=== PATIENT | male | born 1965 | race Caucasian/White ===

== ENCOUNTER 2023-12-29 12:23 | Emergency (ER) | payer OTHER, SELFPAY ==
[2023-12-29 12:30] VITALS: BP 172/97; PULSE 65; TEMP 36.7; O2SAT 97; BMI 30.7
--- NOTE | 2023-12-29 12:43 | PC.NURSE ---
Red raised rash to right back and upper abdomen, no drainage or crust noted.
--- NOTE | 2023-12-29 12:52 | ED.SKABFB1 ---
HPI - Skin/Abscess/Foreign Bdy General Chief complaint: Skin/Abscess/Foreign Body Stated complaint: BACK PAIN/RASH Time Seen by Provider: 12/29/23 12:52 History of Present Illness HPI narrative: This very pleasant man here complaining of skin rash. He noticed about 3 days ago. Initially he thought he had wood sliver since he was doing on some outdoor work. He is not a diabetic. He is not the shingles vaccine. He notices that normally involves one half of his body. No other complaints today. Related Data Allergies Allergy/AdvReac Type Severity Reaction Status Date / Time Penicillins Allergy Severe Verified 12/29/23 12:30 Exam Narrative Exam Narrative: Awake alert moderately uncomfortable. Examination of his lower back shows a bandlike distribution classic of the shingles/zoster rash starting in the paravertebral area on the right side of midline extending over to his abdominal wall. There is no secondary infection. There is no evidence of abdominal wall cellulitis. He has no other systemic complaints. Has no respiratory distress. Constitutional Vital Signs, click to edit/add: Last Vital Signs Temp 98.1 F 12/29/23 12:30 Pulse 65 12/29/23 12:30 Resp 16 12/29/23 12:30 BP 172/97 H 12/29/23 12:30 Pulse Ox 97 12/29/23 12:30 O2 Del Method Room Air 12/29/23 12:30 Course Vital Signs Vital signs: Vital Signs Temperature 98.1 F 12/29/23 12:30 Pulse Rate 65 12/29/23 12:30 Respiratory Rate 16 12/29/23 12:30 Blood Pressure 172/97 H 12/29/23 12:30 Pulse Oximetry 97 12/29/23 12:30 Oxygen Delivery Method Room Air 12/29/23 12:30 Temperature 98.1 F 12/29/23 12:30 Pulse Rate 65 12/29/23 12:30 Respiratory Rate 16 12/29/23 12:30 Blood Pressure 172/97 H 12/29/23 12:30 Pulse Oximetry 97 12/29/23 12:30 Oxygen Delivery Method Room Air 12/29/23 12:30 Discharge Plan Discharge Stand Alone Forms: Portal Instructions Chief Complaint: Skin/Abscess/Foreign Body Clinical Impression: Shingles Patient Disposition: Home, Self-Care Time of Disposition Decision: 12:54 Print Language: Honduran Additional Instructions: Alliance as needed for pain/prednisone Referrals: MARIA E HAMMONDS [Primary Care Provider] - 1 week
== END 2023-12-29 13:10 | disposition home or self-care (01) ==
PROVIDERS: Emergency Provider Emergency Medicine Emergency Medical Services; PCP Nurse Practitioner
DX: B02.9 Zoster without complications (principal)
CPT/HCPCS: 99283

== ENCOUNTER 2024-02-13 14:00 | Observation (INO) | payer OTHER, SELFPAY ==
[2024-02-13] VITALS (29 sets, daily range): BP systolic 148–230; BP diastolic 87–125; PULSE 52–118; TEMP 36.7–37.3; O2SAT 88–99; BMI 28.3; BMI 27.9
--- NOTE | 2024-02-13 14:21 | CT_ITS ---
[address] [address] Patient Name: QING CLARK MRN: [id number] date: 1965 Sex: M Assigned Patient Location: ER Current Patient Location: Accession/Order Number: [id number] Exam Date: 02/13/2024 14:50 Report Date: 02/13/2024 15:52 At the request of: CARLYN SAHA Procedure: CT abdomen pelvis w con EXAMINATION: CT abdomen pelvis w con, CT thoracic spine wo con, CT lumbar spine wo con, CT cervical spine wo con, CT chest w con HISTORY: fall COMPARISON: No relevant comparison available. TECHNIQUE: Axial, Coronal, and Sagittal CT images were obtained without and with IV contrast. Dose reduction techniques were achieved by using automated exposure control and/or adjustment of mA and/or kV according to patient size and/or use of iterative reconstruction technique. FINDINGS: LUNGS: Small amount of soft tissue in the distal trachea and right mainstem bronchus, retained mucus is favored. No bronchiectasis or peribronchial thickening. No pneumothorax. Minimal dependent atelectasis PLEURA: No mass or effusion. VASCULATURE: No visible pulmonary arterial thrombus or attenuation. TRACY: No mass or adenopathy. MEDIASTINUM: No mass or adenopathy. CARDIAC: No enlargement, pericardial thickening, or pericardial effusion. Coronary arteries: Minimal calcifications CHEST WALL: No mass or axillary adenopathy. LIVER: No enlargement, atrophy, abnormal density, or significant focal lesion. BILIARY: No dilatation or calcification. PANCREAS: No lesion, fluid collection, ductal dilatation, or atrophy. SPLEEN: No enlargement or focal lesion. ADRENALS: No mass or enlargement. KIDNEYS: No mass, obstruction, or calcification. BOWEL/MESENTERY: Colonic diverticulosis without evidence of acute diverticulitis. Nonobstructive bowel gas pattern. Normal appendix. AORTA/VASCULAR: No aortic aneurysm. Moderate ossific atherosclerosis RETROPERITONEUM: No mass or adenopathy. ABDOMINAL WALL: 3 cm umbilical hernia containing fat without strangulation BONES: No bony lesion or fracture. Anterior wedge compression fractures T11-T12 L1-L2 and L3, grossly stable from previous exam in 2018. Slight progression of degenerative spondylosis. Cervical/thoracic/lumbar spine: FINDINGS: PARASPINAL AREA: Normal with no visible mass. DISCS: Multilevel disc space narrowing with endplate sclerosis. BONES: Normal alignment of the cervical thoracic and lumbar vertebral bodies with no spondylolisthesis. There is anterior wedging of the T3-T4 T5 T7 T8 and T9, T11, T12, L1, L2, L3 and L4 vertebral bodies. OTHER: Negative. CT/CT abdomen pelvis w con IMPRESSION: No acute intrathoracic or intra-abdominal traumatic abnormality Wedge compression fractures of multiple thoracic and lumbar vertebral bodies. The T11-L3 compression fractures are stable from the prior 2018 exam. The thoracic vertebral bodies have no prior comparison Electronically authenticated by: CHRISTOPHER VALLE Date: 02/13/2024 15:52
--- NOTE | 2024-02-13 14:21 | CT_ITS ---
[address] [address] Patient Name: QING CLARK MRN: [id number] date: 1965 Sex: M Assigned Patient Location: ER Current Patient Location: Accession/Order Number: [id number] Exam Date: 02/13/2024 14:50 Report Date: 02/13/2024 15:52 At the request of: CARLYN SAHA Procedure: CT thoracic spine wo con EXAMINATION: CT abdomen pelvis w con, CT thoracic spine wo con, CT lumbar spine wo con, CT cervical spine wo con, CT chest w con HISTORY: fall COMPARISON: No relevant comparison available. TECHNIQUE: Axial, Coronal, and Sagittal CT images were obtained without and with IV contrast. Dose reduction techniques were achieved by using automated exposure control and/or adjustment of mA and/or kV according to patient size and/or use of iterative reconstruction technique. FINDINGS: LUNGS: Small amount of soft tissue in the distal trachea and right mainstem bronchus, retained mucus is favored. No bronchiectasis or peribronchial thickening. No pneumothorax. Minimal dependent atelectasis PLEURA: No mass or effusion. VASCULATURE: No visible pulmonary arterial thrombus or attenuation. TRACY: No mass or adenopathy. MEDIASTINUM: No mass or adenopathy. CARDIAC: No enlargement, pericardial thickening, or pericardial effusion. Coronary arteries: Minimal calcifications CHEST WALL: No mass or axillary adenopathy. LIVER: No enlargement, atrophy, abnormal density, or significant focal lesion. BILIARY: No dilatation or calcification. PANCREAS: No lesion, fluid collection, ductal dilatation, or atrophy. SPLEEN: No enlargement or focal lesion. ADRENALS: No mass or enlargement. KIDNEYS: No mass, obstruction, or calcification. BOWEL/MESENTERY: Colonic diverticulosis without evidence of acute diverticulitis. Nonobstructive bowel gas pattern. Normal appendix. AORTA/VASCULAR: No aortic aneurysm. Moderate ossific atherosclerosis RETROPERITONEUM: No mass or adenopathy. ABDOMINAL WALL: 3 cm umbilical hernia containing fat without strangulation BONES: No bony lesion or fracture. Anterior wedge compression fractures T11-T12 L1-L2 and L3, grossly stable from previous exam in 2018. Slight progression of degenerative spondylosis. Cervical/thoracic/lumbar spine: FINDINGS: PARASPINAL AREA: Normal with no visible mass. DISCS: Multilevel disc space narrowing with endplate sclerosis. BONES: Normal alignment of the cervical thoracic and lumbar vertebral bodies with no spondylolisthesis. There is anterior wedging of the T3-T4 T5 T7 T8 and T9, T11, T12, L1, L2, L3 and L4 vertebral bodies. OTHER: Negative. CT/CT thoracic spine wo con IMPRESSION: No acute intrathoracic or intra-abdominal traumatic abnormality Wedge compression fractures of multiple thoracic and lumbar vertebral bodies. The T11-L3 compression fractures are stable from the prior 2018 exam. The thoracic vertebral bodies have no prior comparison Electronically authenticated by: CHRISTOPHER VALLE Date: 02/13/2024 15:52
--- NOTE | 2024-02-13 14:21 | CT_ITS ---
The [address] [address] Patient Name: QING CLARK MRN: [id number] date: 1965 Sex: M Assigned Patient Location: ER Current Patient Location: ER Accession/Order Number: [id number] Exam Date: 02/13/2024 14:50 Report Date: 02/13/2024 15:29 At the request of: CARLYN SAHA Procedure: CT head/brain wo con EXAM: CT head/brain wo con HISTORY: Fall COMPARISON: None. TECHNIQUE: Axial noncontrast CT imaging of the head was performed with coronal and sagittal reformats. FINDINGS: Calvarium/skull base: No evidence of acute fracture or destructive lesion. Mastoids and middle ears demonstrate no substantial mucosal disease. Paranasal sinuses: No air fluid levels. Brain: No acute intracranial hemorrhage. No acute large vascular territory infarct. No mass lesion or mass effect. No hydrocephalus. CT/CT head/brain wo con IMPRESSION: No acute intracranial process. Electronically authenticated by: CASS TRIPP Date: 02/13/2024 15:29
--- NOTE | 2024-02-13 14:21 | CT_ITS ---
[address] [address] Patient Name: QING CLARK MRN: [id number] date: 1965 Sex: M Assigned Patient Location: ER Current Patient Location: Accession/Order Number: [id number] Exam Date: 02/13/2024 14:50 Report Date: 02/13/2024 15:52 At the request of: CARLYN SAHA Procedure: CT cervical spine wo con EXAMINATION: CT abdomen pelvis w con, CT thoracic spine wo con, CT lumbar spine wo con, CT cervical spine wo con, CT chest w con HISTORY: fall COMPARISON: No relevant comparison available. TECHNIQUE: Axial, Coronal, and Sagittal CT images were obtained without and with IV contrast. Dose reduction techniques were achieved by using automated exposure control and/or adjustment of mA and/or kV according to patient size and/or use of iterative reconstruction technique. FINDINGS: LUNGS: Small amount of soft tissue in the distal trachea and right mainstem bronchus, retained mucus is favored. No bronchiectasis or peribronchial thickening. No pneumothorax. Minimal dependent atelectasis PLEURA: No mass or effusion. VASCULATURE: No visible pulmonary arterial thrombus or attenuation. TRACY: No mass or adenopathy. MEDIASTINUM: No mass or adenopathy. CARDIAC: No enlargement, pericardial thickening, or pericardial effusion. Coronary arteries: Minimal calcifications CHEST WALL: No mass or axillary adenopathy. LIVER: No enlargement, atrophy, abnormal density, or significant focal lesion. BILIARY: No dilatation or calcification. PANCREAS: No lesion, fluid collection, ductal dilatation, or atrophy. SPLEEN: No enlargement or focal lesion. ADRENALS: No mass or enlargement. KIDNEYS: No mass, obstruction, or calcification. BOWEL/MESENTERY: Colonic diverticulosis without evidence of acute diverticulitis. Nonobstructive bowel gas pattern. Normal appendix. AORTA/VASCULAR: No aortic aneurysm. Moderate ossific atherosclerosis RETROPERITONEUM: No mass or adenopathy. ABDOMINAL WALL: 3 cm umbilical hernia containing fat without strangulation BONES: No bony lesion or fracture. Anterior wedge compression fractures T11-T12 L1-L2 and L3, grossly stable from previous exam in 2018. Slight progression of degenerative spondylosis. Cervical/thoracic/lumbar spine: FINDINGS: PARASPINAL AREA: Normal with no visible mass. DISCS: Multilevel disc space narrowing with endplate sclerosis. BONES: Normal alignment of the cervical thoracic and lumbar vertebral bodies with no spondylolisthesis. There is anterior wedging of the T3-T4 T5 T7 T8 and T9, T11, T12, L1, L2, L3 and L4 vertebral bodies. OTHER: Negative. CT/CT cervical spine wo con IMPRESSION: No acute intrathoracic or intra-abdominal traumatic abnormality Wedge compression fractures of multiple thoracic and lumbar vertebral bodies. The T11-L3 compression fractures are stable from the prior 2018 exam. The thoracic vertebral bodies have no prior comparison Electronically authenticated by: CHRISTOPHER VALLE Date: 02/13/2024 15:52
--- NOTE | 2024-02-13 14:21 | CT_ITS ---
[address] [address] Patient Name: QING CLARK MRN: [id number] date: 1965 Sex: M Assigned Patient Location: ER Current Patient Location: Accession/Order Number: [id number] Exam Date: 02/13/2024 14:50 Report Date: 02/13/2024 15:52 At the request of: CARLYN SAHA Procedure: CT lumbar spine wo con EXAMINATION: CT abdomen pelvis w con, CT thoracic spine wo con, CT lumbar spine wo con, CT cervical spine wo con, CT chest w con HISTORY: fall COMPARISON: No relevant comparison available. TECHNIQUE: Axial, Coronal, and Sagittal CT images were obtained without and with IV contrast. Dose reduction techniques were achieved by using automated exposure control and/or adjustment of mA and/or kV according to patient size and/or use of iterative reconstruction technique. FINDINGS: LUNGS: Small amount of soft tissue in the distal trachea and right mainstem bronchus, retained mucus is favored. No bronchiectasis or peribronchial thickening. No pneumothorax. Minimal dependent atelectasis PLEURA: No mass or effusion. VASCULATURE: No visible pulmonary arterial thrombus or attenuation. TRACY: No mass or adenopathy. MEDIASTINUM: No mass or adenopathy. CARDIAC: No enlargement, pericardial thickening, or pericardial effusion. Coronary arteries: Minimal calcifications CHEST WALL: No mass or axillary adenopathy. LIVER: No enlargement, atrophy, abnormal density, or significant focal lesion. BILIARY: No dilatation or calcification. PANCREAS: No lesion, fluid collection, ductal dilatation, or atrophy. SPLEEN: No enlargement or focal lesion. ADRENALS: No mass or enlargement. KIDNEYS: No mass, obstruction, or calcification. BOWEL/MESENTERY: Colonic diverticulosis without evidence of acute diverticulitis. Nonobstructive bowel gas pattern. Normal appendix. AORTA/VASCULAR: No aortic aneurysm. Moderate ossific atherosclerosis RETROPERITONEUM: No mass or adenopathy. ABDOMINAL WALL: 3 cm umbilical hernia containing fat without strangulation BONES: No bony lesion or fracture. Anterior wedge compression fractures T11-T12 L1-L2 and L3, grossly stable from previous exam in 2018. Slight progression of degenerative spondylosis. Cervical/thoracic/lumbar spine: FINDINGS: PARASPINAL AREA: Normal with no visible mass. DISCS: Multilevel disc space narrowing with endplate sclerosis. BONES: Normal alignment of the cervical thoracic and lumbar vertebral bodies with no spondylolisthesis. There is anterior wedging of the T3-T4 T5 T7 T8 and T9, T11, T12, L1, L2, L3 and L4 vertebral bodies. OTHER: Negative. CT/CT lumbar spine wo con IMPRESSION: No acute intrathoracic or intra-abdominal traumatic abnormality Wedge compression fractures of multiple thoracic and lumbar vertebral bodies. The T11-L3 compression fractures are stable from the prior 2018 exam. The thoracic vertebral bodies have no prior comparison Electronically authenticated by: CHRISTOPHER VALLE Date: 02/13/2024 15:52
--- NOTE | 2024-02-13 14:21 | CT_ITS ---
[address] [address] Patient Name: QING CLARK MRN: [id number] date: 1965 Sex: M Assigned Patient Location: ER Current Patient Location: Accession/Order Number: [id number] Exam Date: 02/13/2024 14:50 Report Date: 02/13/2024 15:52 At the request of: CARLYN SAHA Procedure: CT chest w con EXAMINATION: CT abdomen pelvis w con, CT thoracic spine wo con, CT lumbar spine wo con, CT cervical spine wo con, CT chest w con HISTORY: fall COMPARISON: No relevant comparison available. TECHNIQUE: Axial, Coronal, and Sagittal CT images were obtained without and with IV contrast. Dose reduction techniques were achieved by using automated exposure control and/or adjustment of mA and/or kV according to patient size and/or use of iterative reconstruction technique. FINDINGS: LUNGS: Small amount of soft tissue in the distal trachea and right mainstem bronchus, retained mucus is favored. No bronchiectasis or peribronchial thickening. No pneumothorax. Minimal dependent atelectasis PLEURA: No mass or effusion. VASCULATURE: No visible pulmonary arterial thrombus or attenuation. TRACY: No mass or adenopathy. MEDIASTINUM: No mass or adenopathy. CARDIAC: No enlargement, pericardial thickening, or pericardial effusion. Coronary arteries: Minimal calcifications CHEST WALL: No mass or axillary adenopathy. LIVER: No enlargement, atrophy, abnormal density, or significant focal lesion. BILIARY: No dilatation or calcification. PANCREAS: No lesion, fluid collection, ductal dilatation, or atrophy. SPLEEN: No enlargement or focal lesion. ADRENALS: No mass or enlargement. KIDNEYS: No mass, obstruction, or calcification. BOWEL/MESENTERY: Colonic diverticulosis without evidence of acute diverticulitis. Nonobstructive bowel gas pattern. Normal appendix. AORTA/VASCULAR: No aortic aneurysm. Moderate ossific atherosclerosis RETROPERITONEUM: No mass or adenopathy. ABDOMINAL WALL: 3 cm umbilical hernia containing fat without strangulation BONES: No bony lesion or fracture. Anterior wedge compression fractures T11-T12 L1-L2 and L3, grossly stable from previous exam in 2018. Slight progression of degenerative spondylosis. Cervical/thoracic/lumbar spine: FINDINGS: PARASPINAL AREA: Normal with no visible mass. DISCS: Multilevel disc space narrowing with endplate sclerosis. BONES: Normal alignment of the cervical thoracic and lumbar vertebral bodies with no spondylolisthesis. There is anterior wedging of the T3-T4 T5 T7 T8 and T9, T11, T12, L1, L2, L3 and L4 vertebral bodies. OTHER: Negative. CT/CT chest w con IMPRESSION: No acute intrathoracic or intra-abdominal traumatic abnormality Wedge compression fractures of multiple thoracic and lumbar vertebral bodies. The T11-L3 compression fractures are stable from the prior 2018 exam. The thoracic vertebral bodies have no prior comparison Electronically authenticated by: CHRISTOPHER VALLE Date: 02/13/2024 15:52
--- NOTE | 2024-02-13 14:23 | ED.GENADUL1 ---
HPI HPI - General Adult General Chief complaint: Trauma Stated complaint: RIB PAIN/ FALL Time Seen by Provider: 02/13/24 14:03 Source: patient and family Mode of arrival: walk-in Limitations: no limitations History of Present Illness HPI narrative: Patient is a 58-year-old male who presents to the emergency department with his daughter after a fall down cellar stairs approximately 8 to 10 feet. Patient states he was working in his home when the cellar door was open and he missed a step, falling 8 to 10 feet down the cellar. He states he landed on his left side. He denies hitting his head, loss of consciousness or vomiting. No visual changes or neck pain. He reports most of his pain in the left chest and left trunk/flank. He is not anticoagulated. He has a history of pneumothorax. He denies any history of kidney issues. He has a history of cirrhosis. He denies any extremity injuries. His daughter drove him to the emergency department and he was able to ambulate to an exam room. No medications taken prior to arrival. Daughter at bedside states he has a history of lumbar vertebral fracture, he is supposed to have surgery for this. Related Data Home Medications ?Medication ?Instructions ?Recorded ?Confirmed hydrocodone 5 mg-acetaminophen 325 1 tab PO Q6H 12/29/23 12/29/23 mg tablet prednisone 20 mg tablet 20 mg PO DAILY 12/29/23 12/29/23 Allergies Allergy/AdvReac Type Severity Reaction Status Date / Time Penicillins Allergy Severe Hives Verified 02/13/24 14:10 Opioid HPI Opioid Management Most Recent Opioid Data: Last Pain Scale 02/13/24 14:30 Review of Systems ROS Constitutional Denies: fever or chills Ears, nose, mouth, and throat Denies: throat pain, neck pain or nasal congestion Cardiovascular Reports: chest pain Respiratory Denies: shortness of breath or cough Gastrointestinal Reports: abdominal pain; Denies: nausea or vomiting Musculoskeletal Reports: back pain; Denies: neck pain or extremity pain Neurological Denies: headache, numbness in extremities or weakness in extremities Hematologic/Lymphatic Denies: easy bruising or easy bleeding Exam Narrative Exam Narrative: Gen.: Awake, alert, in no distress Head: Normocephalic, atraumatic ENT: Moist mucous membranes, C-spine nontender Respiratory: No respiratory distress, lungs clear bilaterally; significant pain with inspiration, ecchymosis noted to the left lateral/inferior chest wall Cardio: Regular rate and rhythm Gastrointestinal: Abdomen is soft, tender to palpation on the left lateral abdomen, significant ecchymosis and abrasion noted to the left posterior flank Back: Ecchymosis and abrasion to the left flank, no ecchymosis or abrasions to the upper back or posterior chest wall. Diffuse tenderness of the lumbar spine in the midline with no bony point tenderness or obvious deformity. No thoracic tenderness Extremities: Moves extremities equally, no injuries noted; pelvis is stable Psych: Normal mood and affect Neuro: No focal neuro deficit Skin: Warm, dry, intact Constitutional Vital Signs, click to edit/add: Last Vital Signs Temp 99.2 F 02/13/24 14:11 Pulse 96 H 02/13/24 14:43 Resp 20 02/13/24 14:43 BP 186/119 H 02/13/24 14:45 Pulse Ox 99 02/13/24 14:40 Course Vital Signs Vital signs: Vital Signs Temperature 99.2 F 02/13/24 14:11 Pulse Rate 118 H 02/13/24 14:11 Respiratory Rate 30 H 02/13/24 14:11 Blood Pressure 230/125 H 02/13/24 14:11 Pulse Oximetry 95 02/13/24 14:11 Temperature 99.2 F 02/13/24 14:11 Pulse Rate 96 H 02/13/24 14:43 Respiratory Rate 20 02/13/24 14:43 Blood Pressure 186/119 H 02/13/24 14:45 Pulse Oximetry 99 02/13/24 14:40 Medical Decision Making MDM Narrative Medical decision making narrative: Patient is a 58-year-old male who presents to the emergency department after a fall. On arrival to the emergency department, he was noted to be hypertensive and tachycardic, his blood pressure and heart rate improved dramatically after he was medicated with fluids and pain medication. He was able to rest comfortably in the ER. He was sent for CTs of the head, C-spine, T-spine, L-spine as well as chest/abdomen/pelvis with IV contrast. Patient was found to have a mildly displaced left eighth rib fracture in addition to multiple anterior wedge fractures of the thoracic and lumbar spine. The lumbar spine and inferior thoracic spine compression fractures appear old, we do not have old imaging to compare the thoracic spine although the patient had no thoracic spine tenderness on exam, we suspect these may be old. Patient with stable vital signs on reevaluation by attending physician. Patient is having some nephric and difficulty with movement and ambulation, given his fall and injuries, we will admit for observation for pain control and PT/OT. Admitted to hospitalist for further evaluation and treatment. SHARED APC VISIT, PHYSICIAN ATTESTATION: [id number] I performed a substantive part of the MDM during the patient?s E/M visit. I personally evaluated and examined the patient. I personally made or approved the documented management plan and acknowledge its risk of complications. Medical Records Medical records reviewed: Yes I reviewed the patient's medical records Lab Data Lab results reviewed: Yes I reviewed the patient's lab results Labs: Lab Results 02/13/24 02/13/24 Range/Units 14:30 14:32 WBC 16.0 H (4.0-11.0) 10^3/uL RBC 5.21 (4.70-6.10) 10^6/uL Hgb 15.5 (14.0-18.0) g/dL Hct 45.6 (42.0-54.0) % MCV 87.5 (80.0-94.0) fL MCH 29.8 (25.9-34.0) pg MCHC 34.0 (29.9-35.2) g/dL RDW 14.1 (11.0-15.0) % Plt Count 247 (150-450) 10^3/uL MPV 11.8 (9.5-13.5) fL Neut % (Auto) 58.0 (43.0-75.0) % Lymph % (Auto) 31.7 (20.5-60.0) % [place] % (Auto) 8.6 (1.7-12.0) % Eos % (Auto) 0.7 L (0.9-7.0) % Baso % (Auto) 0.6 (0.2-2.0) % Neut # (Auto) 9.3 H (1.4-6.5) 10^3/uL Lymph # (Auto) 5.1 H (1.2-3.8) 10^3/uL [place] # (Auto) 1.4 H (0.3-0.8) 10^3/uL Eos # (Auto) 0.1 (0.0-0.7) 10^3/uL Baso # (Auto) 0.1 (0.0-0.1) 10^3/uL Abs Immat Gran (auto) 0.06 H (0.00-0.03) 10^3/uL Imm/Tot Granulo (auto) 0.4 (0.0-0.5) % PT 10.9 (9.0-11.6) sec INR 1.03 Sodium 139 (136-145) mmol/L Potassium 3.5 (3.5-5.1) mmol/L Chloride 102 (98-107) mmol/L Carbon Dioxide 25.7 (21.0-32.0) mmol/L Anion Gap 14.8 BUN 7.0 (7.0-18.0) mg/dL Creatinine 0.84 (0.70-1.30) mg/dL Est GFR ( Amer) >60 (>=60) Est GFR (Non-Af Amer) >60 (>=60) BUN/Creatinine Ratio 8.3 Glucose 119 H (74-106) mg/dL Calcium 9.4 (8.5-10.1) mg/dL Total Bilirubin 0.8 (0.2-1.0) mg/dL AST 45 H (15-37) U/L ALT 58 (16-63) U/L Alkaline Phosphatase 74 (46-116) U/L Total Protein 7.7 (6.4-8.2) g/dL Albumin 4.2 (3.4-5.0) g/dL Globulin 3.5 g/dL Albumin/Globulin Ratio 1.2 Blood Type O Negative Antibody Screen Negative Imaging Data CT scan - head: Attestation: I have reviewed the pertinent imaging results. Radiologist's impression: ITS Impressions Abdomen/Pelvis CT 02/13/24 14:21 IMPRESSION: No acute intrathoracic or intra-abdominal traumatic abnormality Wedge compression fractures of multiple thoracic and lumbar vertebral bodies. The T11-L3 compression fractures are stable from the prior 2018 exam. The thoracic vertebral bodies have no prior comparison Electronically authenticated by: CHRISTOPHER VALLE Date: 02/13/2024 15:52 ADDENDUM: 02/13/24 2640 IMPRESSION: No acute intrathoracic or intra-abdominal traumatic abnormality Wedge compression fractures of multiple thoracic and lumbar vertebral bodies. The T11-L3 compression fractures are stable from the prior 2018 exam. The thoracic vertebral bodies have no prior comparison Electronically authenticated by: CHRISTOPHER VALLE Date: 02/13/2024 16:[address] 02/13/24 14:21 IMPRESSION: No acute intrathoracic or intra-abdominal traumatic abnormality Wedge compression fractures of multiple thoracic and lumbar vertebral bodies. The T11-L3 compression fractures are stable from the prior 2018 exam. The thoracic vertebral bodies have no prior comparison Electronically authenticated by: CHRISTOPHER VALLE Date: 02/13/2024 15:52 ADDENDUM: 02/13/24 1614 IMPRESSION: No acute intrathoracic or intra-abdominal traumatic abnormality Wedge compression fractures of multiple thoracic and lumbar vertebral bodies. The T11-L3 compression fractures are stable from the prior 2018 exam. The thoracic vertebral bodies have no prior comparison Electronically authenticated by: CHRISTOPHER VALLE Date: 02/13/2024 16:[address] 02/13/24 14:21 IMPRESSION: No acute intrathoracic or intra-abdominal traumatic abnormality Wedge compression fractures of multiple thoracic and lumbar vertebral bodies. The T11-L3 compression fractures are stable from the prior 2018 exam. The thoracic vertebral bodies have no prior comparison Electronically authenticated by: CHRISTOPHER VALLE Date: 02/13/2024 15:52 ADDENDUM: 02/13/244 IMPRESSION: No acute intrathoracic or intra-abdominal traumatic abnormality Wedge compression fractures of multiple thoracic and lumbar vertebral bodies. The T11-L3 compression fractures are stable from the prior 2018 exam. The thoracic vertebral bodies have no prior comparison Electronically authenticated by: CHRISTOPHER VALLE Date: 02/13/2024 16:[address] 02/13/24 14:21 IMPRESSION: No acute intracranial process. Electronically authenticated by: CASS TRIPP Date: 02/13/2024 15:[address] 02/13/24 14:21 IMPRESSION: No acute intrathoracic or intra-abdominal traumatic abnormality Wedge compression fractures of multiple thoracic and lumbar vertebral bodies. The T11-L3 compression fractures are stable from the prior 2018 exam. The thoracic vertebral bodies have no prior comparison Electronically authenticated by: CHRISTOPHER VALLE Date: 02/13/2024 15:52 ADDENDUM: 02/13/24 1615 IMPRESSION: No acute intrathoracic or intra-abdominal traumatic abnormality Wedge compression fractures of multiple thoracic and lumbar vertebral bodies. The T11-L3 compression fractures are stable from the prior 2018 exam. The thoracic vertebral bodies have no prior comparison Electronically authenticated by: CHRISTOPHER VALLE Date: 02/13/2024 16:[address] 02/13/24 14:21 IMPRESSION: No acute intrathoracic or intra-abdominal traumatic abnormality Wedge compression fractures of multiple thoracic and lumbar vertebral bodies. The T11-L3 compression fractures are stable from the prior 2018 exam. The thoracic vertebral bodies have no prior comparison Electronically authenticated by: CHRISTOPHER VALLE Date: 02/13/2024 15:52 ADDENDUM: 02/13/24 1615 IMPRESSION: No acute intrathoracic or intra-abdominal traumatic abnormality Wedge compression fractures of multiple thoracic and lumbar vertebral bodies. The T11-L3 compression fractures are stable from the prior 2018 exam. The thoracic vertebral bodies have no prior comparison Electronically authenticated by: CHRISTOPHER VALLE Date: 02/13/2024 16:11 ECG Data Attestation: I personally reviewed and interpreted this ECG as follows: (Normal sinus rhythm at a rate of 82, no acute ST elevation, no ectopy. EKG reviewed by attending physician) Discharge Plan Discharge Chief Complaint: Trauma Clinical Impression: Fall, Fracture of rib, Fracture of multiple thoracic vertebrae, Closed lumbar vertebral fracture Patient Disposition: Admitted as Observation Time of Disposition Decision: 16:37 Prescriptions / Home Meds: No Action prednisone 20 mg tablet 20 mg PO DAILY Rx Instructions: days 11-21 of therapy hydrocodone-acetaminophen 5-325 mg tablet 1 tab PO Q6H Print Language: Somali Referrals: MARIA E HAMMONDS [Primary Care Provider] - 1 week
--- NOTE | 2024-02-13 14:27 | ECG_ITS ---
[facility] Test Date: 2024-02-13 Pat Name: QING CLARK Department: Room: - Gender: Male [employer]: : 1965 Requested By: Ching Graham Order Number: [id number] Reading MD: KAVITHA BURTON Measurements Intervals [place] Rate: 82 P: 72 NV: 202 QRS: 94 QRSD: 92 T: 49 QT: 362 QTc: 400 Interpretive Statements 1100 Sinus rhythm 1102 Sinus arrhythmia [address] elevation 7102 Moderate right axis deviation 9130 borderline ECG No previous ECG available for comparison Electronically Signed On 02-14-2024 5:39:01 EDT by KAVITHA BURTON
[2024-02-13] MEDS: 0.9 % SODIUM CHLORIDE 1,000 ML 1000 ML IV (14:31)
[2024-02-13] MEDS: ORPHENADRINE 60 MG/ 2 ML VIAL IV (14:33)
[2024-02-13] MEDS: ONDANSETRON PF 4 MG/2 ML VIAL IV (14:33)
[2024-02-13] MEDS: HYDROMORPHONE HCL 1 MG/ML CARTRIDGE IVP (14:33)
[2024-02-13 14:42] LABS: Basophils Absolute Auto 0.1 10^3/uL (0.0-0.1); Basophils Percent Auto 0.6 % (0.2-2.0); Eosinophils Absolute Auto 0.1 10^3/uL (0.0-0.7); Eosinophils Percent Auto 0.7 % (0.9-7.0); Hematocrit 45.6 % (42.0-54.0); Hemoglobin 15.5 g/dL (14.0-18.0); Immature Granulocytes Abs Auto 0.06 10^3/uL (0.00-0.03); Immature Granulocytes Pct Auto 0.4 % (0.0-0.5); Lymphocytes Absolute Auto 5.1 10^3/uL (1.2-3.8); Lymphocytes Percent Auto 31.7 % (20.5-60.0); Mean Corpuscular Hemoglobin 29.8 pg (25.9-34.0); Mean Corpuscular Volume 87.5 fL (80.0-94.0); Mean Platelet Volume 11.8 fL (9.5-13.5); Monocytes Absolute Auto 1.4 10^3/uL (0.3-0.8); Monocytes Percent Auto 8.6 % (1.7-12.0); Neutrophils Absolute Auto 9.3 10^3/uL (1.4-6.5); Platelet Count 247 10^3/uL (150-450); Red Blood Count 5.21 10^6/uL (4.70-6.10); Red Cell Distribution Width 14.1 % (11.0-15.0)
[2024-02-13 14:57] LABS: INR 1.03; Prothrombin Time 10.9 sec (9.0-11.6)
[2024-02-13 15:39] LABS: Alanine Aminotransferase 58 U/L (16-63); Albumin Globulin Ratio 1.2; Albumin Level 4.2 g/dL (3.4-5.0); Alkaline Phosphatase 74 U/L (46-116); Anion Gap 14.8; Aspartate Amino Transferase 45 U/L (15-37); BUN Creatinine Ratio 8.3; Bilirubin Total 0.8 mg/dL (0.2-1.0); Calcium 9.4 mg/dL (8.5-10.1); Carbon Dioxide 25.7 mmol/L (21.0-32.0); Chloride 102 mmol/L (98-107); Estimated GFR (African America >60 (>=60); Estimated GFR (Non-African Ame >60 (>=60); Globulin 3.5 g/dL; Glucose 119 mg/dL (74-106); Potassium 3.5 mmol/L (3.5-5.1); Sodium 139 mmol/L (136-145); Total Protein 7.7 g/dL (6.4-8.2)
--- NOTE | 2024-02-13 18:03 | P.HP_ITS ---
HPI H&P: HPI History of Present Illness Chief complaint: RIB PAIN/ FALL Narrative: Patient seen and evaluated in the emergency room after about a 5 to 6 foot fall. Landed on his left side. Instant pain at the time. Presented to the emergency room and will be admitted for intractable pain. Question of acute versus old compression fractures in his spine. He does have some old ones that was noted on previous but no previous of the thoracic spine. Does have a nondisplaced eighth rib fracture on the left side. When I saw patient in the emergency room, resting uncomfortably in bed secondary to pain. Any movement caused him to have increase in his pain. No respiratory distress denied chest pain denied syncope no headache. Patient will be admitted for intractable pain. Opioid HPI Opioid Management Most Recent Pain and Opioid Data: Last Pain Scale 10 02/13/24 14:30 Meds Home Medications and Allergies Home Medications ?Medication ?Instructions ?Recorded ?Confirmed ?Type hydrocodone 5 mg-acetaminophen 325 1 tab PO Q6H 12/29/23 12/29/23 History mg tablet prednisone 20 mg tablet 20 mg PO DAILY 12/29/23 12/29/23 History Allergies Allergy/AdvReac Type Severity Reaction Status Date / Time Penicillins Allergy Severe Hives Verified 02/13/24 14:10 Exam Constitutional Vital Signs, click to edit/add: Last Vital Signs Temp 99.2 F 02/13/24 14:11 Pulse 71 02/13/24 16:31 Resp 19 02/13/24 16:31 BP 174/99 H 02/13/24 16:31 Pulse Ox 94 L 02/13/24 16:42 Results Labs Labs: Short CBC 02/13/24 Range/Units 14:30 WBC 16.0 H (4.0-11.0) 10^3/uL Hgb 15.5 (14.0-18.0) g/dL Hct 45.6 (42.0-54.0) % Plt Count 247 (150-450) 10^3/uL BMP 02/13/24 14:30 Sodium 139 Potassium 3.5 Chloride 102 Carbon Dioxide 25.7 BUN 7.0 Creatinine 0.84 Glucose 119 H Calcium 9.4 Liver Function 02/13/24 Range/Units 14:30 Total Bilirubin 0.8 (0.2-1.0) mg/dL AST 45 H (15-37) U/L ALT 58 (16-63) U/L Alkaline Phosphatase 74 (46-116) U/L Albumin 4.2 (3.4-5.0) g/dL Assessment and Plan Assessment and Plan (1) Fracture of multiple thoracic vertebrae: (2) Closed lumbar vertebral fracture: Plan Sinus tachycardia, uncontrolled hypertension, leukocytosis secondary to fall with left eighth rib fracture, possible compression fracture although these are more likely old. Intractable pain in ER. Unable to ambulate without significant pain. Patient will be admitted overnight, [id number] Toradol and Norflex, 1 dose of Decadron, Dilaudid and hydrocodone for pain control. Physical therapy to work with patient tomorrow. If ambulating better will be discharged home tomorrow. History of COPD-somewhat wheezy on exam, will start patient on nebulizers plus as needed, need to watch patient for atelectasis, started PEP therapy Hypertension by history but is no longer needed medications, uncontrolled hypertension on admission likely secondary to pain. Pain control and as needed hydralazine History of acute [place]-no current chest pain. Monitor closely. Left-sided abdominal tenderness. This is likely secondary to his rib fractures and likely bruising. CT scan reviewed with no splenic or kidney injury on that side. Will check urinalysis. If pain persisting tomorrow check ultrasound Admission status: Patient with intractable pain, about a 50% chance to be able to be discharged home tomorrow which would be [address] patient observation status.
--- OUTSIDE RECORDS SUMMARY | 2024-02-13 18:46 | XMS_ITS | CCD ---
Author Organization [facility] Care Team Providers Care Echo Technologist Name Role Phone MARIA E GRAHAM Admitting Unavailable GRAHAM, MARIA E Attending Unavailable GRAHAM, MARIA E Consulting Unavailable GRAHAM, MARIA E Primary Care Unavailable GRAHAM, MARIA E Admitting Unavailable GRAHAM, MARIA E Attending Unavailable Cristy Cobb Consulting Unavailable GRAHAM, MARIA E Consulting Unavailable GRAHAM, MARIA E Admitting Unavailable GRAHAM, MARIA E Attending Unavailable SANTOS, MARIA E Consulting Unavailable KASSANDRA MOON Primary Care Unavailable SANTOS, MARIA E Primary Care Unavailable XANDER, DR BESSY Townsend Attending Unavailable XANDER, DR BESSY Townsend Consulting Unavailable XANDER, DR BESSY Townsend Admitting Unavailable LEONARD, DR CHRISTOPHER Phan Consulting Unavailable KASSANDRA MOON Primary Care Physician [phone] MARIA E GRAHAM Primary Care Physician Santos LEAD DEVELOPER-Maria E NIEVES Primary Care Provid er MARIA E GRAHAM Attending Unavailable MARIA E GRAHAM Referring Unavailable GRAHAMMARIA E JOSE Primary Care Unavailable MARIA E GRAHAM Attending Unavailable MARIA E GRAHAM Referring Unavailable GRAHAMMARIA E Primary Care Unavailable GRHAAMMARIA E JOSE Referring Unavailable GRAHAMMARIA E JOSE Primary Care Unavailable MARIA E GRAHAM Referring Unavailable GRAHAMMARIA E JOSE Primary Care Unavailable MARIA E GRAHAM Primary Care Unavailable JUAN HUNT Attending Unavailable MARIA E GRAHAM Referring Unavailable GRAHAM, MARIA E Hernandez Primary Care Unavailable SANTOS, MARIA E Primary Care Unavailable Cristo MONROY Admitting Unavailable Cristo MONROY Attending Unavailable Roxie Wang Attending Unavailable SANTOS, MARIA E Primary Care Unavailable MARIA E GRAHAM Primary Care Unavailable Yvette Doran Attending Unavailable MARIA E GRAHAM Primary Care Unavailable Cristo MONROY Admitting Unavailable Cristo MONROY Attending Unavailable Cristo MONROY Referring Unavailable Allergies Allergy Classification Reported Allergen(s) Allergy Type Date of Onset Reaction(s) Facility Penicillins (antibiotic) (1 source) Penicillins Drug Allergy 03-11-2014 [facility] Repository (20 sources) Penicillins; Translations: [penicillins] Drug allergy 03-21-2019 [facility] Medications Current Medications Medication Drug Class(es) Dates Sig (Normalized) Sig (Original) [id number] 200 actuat albuterol 0.09 mg/actuat metered dose inhaler (15 sources) beta2-Adrenergic Agonist Start: 04-25-2023 End: 10-02-2023 take 2 puff(s) by mouth every six hours as needed for wheezing albuterol (VENTOLIN HFA) 90 mcg/actuation inhaler Indications: COPD mixed type ([facility]) INHALE 2 PUFFS BY MOUTH EVERY 6 HOURS NEEDED FOR WHEEZING and SHORTNESS OF BREATH 18 g 1 10/02/2023 Active Start: 09-07-2020 take 3 mL by inhalat ion every six hours as needed for wheezing albuterol (PROVENTIL,VENTOLIN) 2.5 mg /3 mL (0.083 %) nebulizer solution Indications: Upper respiratory tract infection, unspecified type , COPD with acute exacerbation ([facility]) , Dyspnea on exertion Inhale 3 mL (2.5 mg total) by nebulization every 6 (six) hours as needed for wheezing or shortness of breath. 75 vial 1 09/07/2020 Active ALPRAZolam 1 mg oral tablet (10 sources) Benzodiazepine Start: 09-25-2023 End: 10-18-2023 take 1 tablet by mouth three times daily as needed for anxiety ALPRAZolam (XANAX) 1 mg tablet Indications: Narcotic drug use , Generalized anxiety disorder with panic attacks , PTSD (post-traumatic stress disorder) TAKE 1 TABLET BY MOUTH THREE TIMES DAILY NEEDED FOR ANXIETY (call doctors office 5 days before needing refill) 90 tablet 0 10/19/2023 Active Start: 08-28-2023 take 1 tablet by saul th three times daily as needed for anxiety ALPRAZolam (XANAX) 1 mg tablet Indications: Narcotic drug use , Generalized anxiety disorder with panic attacks , PTSD (post-traumatic stress disorder) TAKE 1 TABLET BY MOUTH THREE TIMES DAILY NEEDED FOR ANXIETY (call doctors office 5 days before needing refill) 90 tablet 0 08/28/2023 Active Start: 08-28-2023 take 1 tablet by saul th three times daily as needed for anxiety ALPRAZolam (XANAX) 1 mg tablet Indications: Narcotic drug use , Generalized anxiety disorder with panic attacks , PTSD (post-traumatic stress disorder) TAKE 1 TABLET BY MOUTH THREE TIMES DAILY NEEDED FOR ANXIETY (call doctors office 5 days before needing refill) 90 tablet 0 08/28/2023 Active Start: 08-28-2023 take 1 tablet by saul th three times daily as needed for anxiety ALPRAZolam (XANAX) 1 mg tablet Indications: Narcotic drug use , Generalized anxiety disorder with panic attacks , PTSD (post-traumatic stress disorder) TAKE 1 TABLET BY MOUTH THREE TIMES DAILY NEEDED FOR ANXIETY (call doctors office 5 days before needing refill) 90 tablet 0 08/28/2023 Active Start: 07-26-2023 End: 08-21-2023 take 1 tablet by mouth three times daily as needed for anxiety ALPRAZolam (XANAX) 1 mg tablet Indications: Narcotic drug use , Generalized anxiety disorder with panic attacks , PTSD (post-traumatic stress disorder) TAKE 1 TABLET BY MOUTH THREE TIMES DAILY NEEDED FOR ANXIETY (call doctors office 5 days before needing refill) 90 tablet 0 07/26/2023 08/21/2023 Discontinued (Reorder) Start: 06-28-2023 End: 07-24-2023 take 1 tablet by mouth three times daily as needed for anxiety ALPRAZolam (XANAX) 1 mg tablet Indications: Narcotic drug use , Generalized anxiety disorder with panic attacks , PTSD (post-traumatic stress disorder) TAKE 1 TABLET BY MOUTH THREE TIMES DAILY NEEDED FOR ANXIETY (call doctors office 5 days before needing refill) 90 tablet 0 06/28/2023 07/24/2023 Discontinued (Reorder) buprenorphine 8 mg / naloxone 2 mg sublingual film (9 sources) Partial Opioid Agonist, Opioid Antagonist Start: 08-08-2022 Suboxone 8 mg-2 mg sublingual film 1 EA, SubLingual, Daily, Refill(s) 0 Start Date: 08/08/22 Status: Ordered cholecalciferol 1.25 mg oral capsule (5 sources) Vitamin D Start: 08-10-2023 take 1 capsule by mouth every week cholecalciferol (VITAMIN D3) 50,000 units capsule Indications: Vitamin D deficiency Take 1 capsule (50,000 Units total) by mouth once a week. 4 capsule 6 08/10/2023 Active DULoxetine 60 mg delayed release oral capsule (19 sources) Serotonin and Norepinephrine Reuptake Inhibitor Start: 05-18-2023 End: 08-09-2023 take 1 capsule by mouth in the morning, then take 1 capsule by mouth at bedtime DULoxetine (CYMBALTA) 60 mg capsule Indications: Generalized anxiety disorder with panic attacks , Current moderate episode of major depressive disorder without prior episode ([facility]) Take 1 capsule (60 mg total) by mouth in the morning and 1 capsule (60 mg total) before bedtime. 180 capsule 1 08/09/2023 Active Start: 06-29-2022 Cymbalta Oral, Refills(s) 0, Depression Start Date: 06/29/22 Status: Ordered Start: 06-29-2022 Cymbalta Oral, Refills(s) 0 Start Date: 06/29/22 Status: Ordered Lisinopril (8 sources) Angiotensin Converting Enzyme Inhibitor Start: 06-29-2022 lisinopril Oral, Luisa ly, Refills(s) 0, High blood pressure Start Date: 06/29/22 Status: Ordered Start: 06-29-2022 lisinopril Ora l, Daily, Refills(s) 0 Start Date: 06/29/22 Status: Ordered LORazepam 1 mg oral tablet (11 sources) Benzodiazepine Start: 05-22-2017 lorazepam 1 mg oral tablet Refills(s) 0 Start Date: 05/22/17 Status: Ordered omeprazole 40 mg delayed release oral capsule (5 sources) Proton Pump Inhibitor Start: 03-01-2023 End: 08-09-2023 take 1 capsule by mouth once daily omeprazole 40 mg Cap-DR 40 mg = 1 cap(s), Oral, Daily, # 30 cap(s), Refills(s) 1, Pharmacy: [id number], 181, cm, 03/01/23 9:09:00 EDT, Height/Length Dosing, 81.1, kg, 03/01/23 9:09:00 EDT, Weight Dosing Start Date: 03/01/23 Status: Ordered tamsulosin hydrochloride 0.4 mg oral capsule (16 sources) alpha-Adrenergic Rita Start: 05-18-2023 End: 08-09-2023 take 1 capsule by mouth in the morning tamsulosin (FLOMAX) 0.4 mg capsule Indications: Benign prostatic hyperplasia with weak urinary stream Take 1 capsule (0.4 mg total) by mouth in the morning. 90 capsule 1 08/09/2023 Active Start: 08-10-2022 take 1 capsule by mo uth once daily Flomax 0.4 mg Cap 0.4 mg = 1 cap(s), Oral, Daily, Refills(s) 0, Bladder problems Start Date: 08/10/22 Status: Ordered Ventolin HFA 90 mcg/inh Aerosol-Adpt (9 sources) Start: 08-08-2022 take 1 puff(s) by inhalation once for wheezing Ventolin HFA 90 mcg/inh Aerosol-Adpt 1 puff(s), Inhalation, Once for wheezing, 18 gram, Refill(s) 0 Start Date: 08/08/22 Status: Ordered Completed/Discontinued Medications Medication Drug Class(es) Dates Sig (Normalized) Sig (Original) 24 hr metoprolol succinate 50 mg extended release oral tablet (10 sources) beta-Adrenergic Rita Start: 05-18-2023 End: 08-09-2023 take 1 tablet by mouth every twenty-four hours in the morning metoprolol succinate XL (TOPROL XL) 50 mg 24 hr tablet Indications: Essential hypertension Take 1 tablet (50 mg total) by mouth in the morning. 90 tablet 1 05/18/2023 08/09/2023 Discontinued (Therapy completed) Start: 08-10-2022 take 2 tablets by mo uth once daily metoprolol succinate 25 mg oral tablet, extended release 50 mg, Oral, Daily, Refills(s) 0 Start Date: 08/10/22 Status: Ordered Problems Active Problems Problem Classification Problem Date Documented Date Episodic/Chronic Anxiety disorders (16 sources) Generalized anxiety disorder; Translations: [Generalized anxiety disorder] Onset: 03-24-2019 07-24-2023 Chronic Cardiac and circulatory congenital anomalies (1 source) Arteriovenous malformation of duodenum 04-13-2023 Chronic E Codes: Fall (1 source) Unspecified fall, initial encounter; Translations: [UNSPECIFIED FALL INITIAL ENCOUNTER] Onset: 12-30-2020 Episodic Essential hypertension (9 sources) Essential (primary) hypertension; Translations: [Essential hypertension] Onset: 04-07-2019 04-07-2019 Chronic Gastroduodenal ulcer (except hemorrhage) (8 sources) Gastric ulcer; Translations: [Gastric ulcer, unspecified as acute or chronic, without hemorrhage or perforation] Onset: 04-13-2023 Chronic Genitourinary congenital anomalies (2 sources) Retractile testis; Translations: [Unspecified undescended testicle, unilateral] Onset: 12-30-2020 Chronic Hepatitis (20 sources) Chronic viral hepatitis C; Translations: [Chronic active hepatitis C] Onset: 06-29-2022 Chronic Hepatitis (9 sources) Viral hepatitis C; Translations: [Unspecified viral hepatitis C without hepatic coma] Onset: 12-29-2022 Episodic Hyperplasia of prostate (2 sources) Weak urinary stream due to benign prostatic hypertrophy; Translations: [Benign prostatic hyperplasia with lower urinary tract symptoms] Onset: 08-09-2023 08-09-2023 Chronic Mood disorders (10 sources) Moderate major depression, single episode; Translations: [Major depressive disorder, single episode, moderate] Onset: 03-24-2019 12-11-2019 Chronic Nutritional deficiencies (3 sources) Vitamin D deficiency; Translations: [Vitamin D deficiency, unspecified] Onset: 08-09-2023 08-09-2023 Chronic Other aftercare (2 sources) intermediate (current) use of opiate analgesic; Translations: [intermediate (current) use of opiate analgesic] Onset: 11-09-2023 Episodic Other and unspecified benign neoplasm (1 source) Polyp of colon; Translations: [Polyp of colon] Onset: 08-08-2022 Episodic Other and unspecified benign neoplasm (1 source) Benign neoplasm of colon; Translations: [Benign neoplasm of colon, unspecified] Onset: 12-29-2022 Episodic Other disorders of stomach and duodenum (1 source) Angiodysplasia of stomach; Translations: [Angiodysplasia of stomach and duodenum without bleeding] Onset: 04-13-2023 Episodic Other disorders of stomach and duodenum (6 sources) Arteriovenous malformation of duodenum; Translations: [Angiodysplasia of stomach and duodenum without bleeding] Onset: 08-09-2023 08-09-2023 Episodic Other liver diseases (2 sources) Cirrhosis of liver; Translations: [Other cirrhosis of liver] Onset: 12-29-2022 Chronic Other male genital disorders (1 source) Right testicular pain; Translations: [Right testicular pain] Onset: 11-09-2023 Episodic Other non-traumatic joint disorders (4 sources) Pain in left wrist; Translations: [PAIN IN LEFT WRIST] Onset: 12-25-2020 Episodic Residual codes; unclassified (1 source) Procedure and treatment not carried out because of patient's decision for unspecified reasons; Translations: [Procedure and treatment not carried out because of patient's decision for unspecified reasons] Onset: 11-09-2023 Episodic Substance-related disorders (11 sources) Smoker 05-22-2017 Chronic Comment on above: Added secondary to d ocumentation in Social History. Unclassified (11 sources) Patient encounter status 06-29-2022 Unclassified (1 source) controlled substance Onset: 11-09-2023 Unclassified (1 source) Testicle Pain Onset: 11-09-2023 Unclassified (1 source) RT TESTICLE PAIN Onset: 11-09-2023 Past or Other Problems Problem Classification Problem Date Documented Da te Episodic/Chronic Chronic obstructive pulmonary disease and bronchiectasis (9 sources) Chronic obstructive pulmonary disease with (acute) exacerbation; Translations: [Chronic obstructive lung disease] Onset: 04-02-2019 Resolved: 02-08-2023 02-08-2023 Chronic Disorders of teeth and jaw (7 sources) Tooth disorder; Translations: [Disorder of teeth and supporting structures, unspecified] Onset: 08-20-2019 Resolved: 11-11-2019 11-11-2019 Episodic Gastrointestinal hemorrhage (4 sources) Melena; Translations: [MELENA] Onset: 09-13-2020 Episodic Genitourinary symptoms and ill-defined conditions (1 source) Poor urinary stream; Translations: [Poor urinary stream] Onset: 08-09-2023 Episodic Immunizations and screening for infectious disease (4 sources) Contact with and (suspected) exposure to other viral communicable diseases; Translations: [CONTCT EXPS OTH VIRL COMMUNICABL DZ] Onset: 06-11-2020 Episodic Mood disorders (7 sources) Mood disorders Onset: 05-18-2023 Resolved: 08-09-2023 05-18-2023 Other and unspecified benign neoplasm (13 sources) Adenomatous polyp of colon ; Translations: [Benign neoplasm of colon, unspecified] Onset: 02-01-2023 12-29-2022 Episodic Other gastrointestinal disorders (1 source) Diarrhea, unspecified; Translations: [DIARRHEA UNSPECIFIED] Onset: 09-22-2020 Episodic Other infections; including parasitic (1 source) Personal history of other infectious and parasitic diseases; Translations: [PERSONAL HX OTH INF AND PARASITIC DZ] Onset: 09-15-2020 Episodic Other liver diseases (7 sources) Chronic hepatitis C; Translations: [Other cirrhosis of liver] Onset: 02-01-2023 Resolved: 02-08-2023 02-08-2023 Chronic Other lower respiratory disease (1 source) Dyspnea, unspecified; Translations: [DYSPNEA UNSPECIFIED] Onset: 06-17-2020 Episodic Other nutritional; endocrine; and metabolic disorders (1 source) Abnormal weight loss; Translations: [ABNORMAL WEIGHT LOSS] Onset: 09-22-2020 Episodic Other nutritional; endocrine; and metabolic disorders (7 sources) Overweight in adulthood with body mass index of 25 or more but less than 30; Translations: [Body mass index (BMI) 29.0-29.9, adult] Onset: 12-11-2019 12-11-2019 Episodic Other screening for suspected conditions (not mental disorders or infectious disease) (12 sources) Screening for malignant neoplasm of colon done; Translations: [Encounter for screening for malignant neoplasm of colon] Onset: 03-24-2019 Episodic Other upper respiratory infections (1 source) Acute upper respiratory infection, unspecified; Translations: [ACUTE UP RESPIRATORY INFECTION UNS] Onset: 06-17-2020 Episodic Spondylosis; intervertebral disc disorders; other back problems (16 sources) Chronic low back pain; Translations: [Chronic left-sided low back pain without sciatica] Onset: 03-24-2019 03-24-2019 Episodic Substance-related disorders (11 sources) Narcotic drug user; Translations: [Opioid use, unspecified, uncomplicated] Onset: 12-11-2019 07-24-2023 Episodic Unclassified (7 sources) Onset: 02-08-2023 Resolved: 08-09-2023 02-08-2023 Results Test Name Value Interpretation Reference Range Facility Ambulatory Visit Summaryon 0 02-08-2024 Ambulatory Visit Summary Ambulatory Visit Summary QING CLARK :1965 Visit Date:02/08/2024 Ambulatory Visit Instructions Your Diagnosis Compensated HCV cirrhosis History of hepatitis C History of colon polyps Loss of appetite Shingles HCV antibody positive Unspecified viral hepatitis C without hepatic coma Your Care Team Attending Physician - Felipe BAR, Roxie Faith Primary Care Physician - MARIA E GRAHAM CNP This Is Your Medications List sucralfate (Carafate 1 g/10 mL Susp-Oral) Contact prescribing physician if questions or concerns albuterol (Ventolin HFA 90 mcg/inh Aerosol-Adpt) buprenorphine-naloxo ne (Suboxone 8 mg-2 mg sublingual film) duloxetine (Cymbalta) lorazepam (lorazepam 1 mg oral tablet) metoprolol (metoprolol succinate 25 mg oral tablet, extended release) omeprazole (omeprazole 40 mg Cap-DR) tamsulosin (Flomax 0.4 mg Cap) Procedures Performed Esophagogastroduoden oscopy (03/01/2023), Colonoscopy (08/08/2022). Discharge Vitals Heart Rate (Peripheral) 55 Respiratory Rate 16 Blood Pressure 162/98 Height 71 in Height 181 cm Weight 203.72 lb Weight 92.6 kg BMI 28.27 What to do next You Need to Complete the Following Alpha Fetoprotein Tumor Marker, Blood, Routine collect, *Est. 02/08/24 +/- 28 day(s), Order for future visit, Lab Collect, Liver cirrhosis, Print Label By Order Location Alpha Fetoprotein Tumor Marker, Blood, Routine collect, *Est. 08/10/24 +/- 28 day(s), Order for future visit, Lab Collect, Liver cirrhosis, Print Label By Order Location Alpha Fetoprotein Tumor Marker, Blood, Routine collect, *Est. 02/08/24 +/- 28 day(s), Order for future visit, Lab Collect, Compensated HCV cirrhosis Invalid Interpretation Code History of colon polyps, Print Label By Order Location\.br\ Alpha Fetoprotein Tumor Marker, Blood, Routine collect, *Est. 08/10/24 +/- 28 day(s), Order for future visit, Lab Collect, Compensated HCV cirrhosis [facility] Gastroenterology Office/Clin ic Noteon 02-08-2024 Gastroenterology Office/Clinic Note Gastroenterology Office/Clinic Note Chief Complaint 6 month follow up HPI Staff This is a 58 year old male who presents today for a 6 mos follow-up for liver cirrhosis and history of hep C. Hep C tx w/Epclusa 12/2022. Last Fibro 08/05/22: E 14.2 CAP 227 F4 S0 EGD due 2024 Colon due 2029 US liver, CBC/CMP/PT INR/AFP ordered for Q6 months. Dr Monroy Assessment/Plan: 12/29/2022 1. Compensated HCV cirrhosis (K74.69: Other cirrhosis of liver) The patient has a chronic history of hepatitis C since 1989. His FibroScan showed evidence of advanced liver disease with F4 fibrosis. This was confirmed with a liver biopsy which showed F4 fibrosis/early cirrhosis. His cirrhosis appears to be compensated. There is no evidence of esophageal varices. There is no evidence of ascites, lower extremities, edema, or hepatic encephalopathy. I will screen him for esophageal varices. I will also screen him for HCC with a repeat ultrasound every 6 months. 1. We will proceed with CBC, CMP, and INR to calculate his MELD score. 2. Screening for esophageal varices: We will proceed with an EGD. 3. Screening for HCC: We will proceed with a liver ultrasound and repeat every 6 months. 4. Hepatic encephalopathy screening: Negative. 5. Ascites/lower extremity edema: Negative. We will start 2 g salt restriction. 2. Chronic active hepatitis C (B18.2: Chronic viral hepatitis C) He has genotype 1a, treatment naive. He is negative for Hepatitis B and HIV. He has decompensated liver cirrhosis. We'll start Epclusa. 3. Adenomatous colon polyp (D12.6: Benign neoplasm of colon, unspecified) The patient was found to have a small 5 mm tubular adenoma removed with cold snare. He will repeat a colonoscopy in 2029. He has no family history of colon cancer. Unspecified viral hepatitis C without hepatic coma (B19.20: Unspecified viral hepatitis C without hepatic coma) EGD: 03/01/2023 1. Normal esophagus, Z line at 40 cm no esophageal varices, 2. Moderate gastric erosions with speckles of old blood, random biopsies obtained to rule out H. pylori 3. Normal duodenum except for pinpointed nonbleeding duodenal AVM in the second part Pathology: STOMACH, BIOPSY: ESSENTIALLY NORMAL GASTRIC GLANDULAR MUCOSA - FOCAL MINIMAL NONSPECIFIC MUCOSAL CHRONIC INFLAMMATION PRESENT - SPECIAL IHC STAIN FOR H. pylori: NEGATIVE Colonoscopy: 08/08/2022 1. Sessile polyp, 5 mm, in the descending colon, removed completely with cold snare 2. Moderate diverticulosis in the sigmoid and descending colon 3. Moderate nonbleeding internal hemorrhoids Pathology: POLYP, DESCENDING COLON, POLYPECTOMY: ? TUBULAR ADENOMA. US Liver: 01/23/2023 IMPRESSION: NEGATIVE FACTORS: ULTRASOUND. CLINICAL HISTORY: K74.69 Other cirrhosis of liver COMPARISON: NONE. FINDINGS: Liver is normal in size, shape, and echogenicity. No intrahepatic no extrahepatic ductal dilatation. Common duct measures 4.4 mm. Color-flow without anomaly. Gallbladder contains no shadowing and no echogenic foci. No pericholecystic fluid. No gallbladder wall thickening. Pancreatic body normal in size, shape, and echogenicity. Remainder of pancreas obscured by overlying bowel gas. Liver Biopsy:12/01/2022 Pathology: Final Diagnosis (Verified) LIVER, NEEDLE BIOPSY: ? CHRONIC HEPATITIS WITH BRIDGING FIBROSIS, SUGGESTIVE OF CIRRHOSIS, CONSISTENT WITH HEPATITIS C ETIOLOGY. Note: A 57 year old male has hepatitis C quantitative test [id number] IU/ml on 08/08/2022. Liver biopsy demonstrates perisinusoidal, portal and bridging fibrosis (trichrome and reticulin stain). The portal tracts show marked lymphocytic inflammation with lymphoid aggregates and focal interface activity. Inflammatory cells also include scattered eosinophils. Focal mild lobular inflammation is evident. The interlobular bile ducts are intact and show no evidence of bile duct injury or loss. No eosinophilic necrotic hepatocytes are seen on the submitted sections. No granulomas or cholestasis is identified. Iron stain is negative for iron deposits (iron score 0). The accompanying PAS after diastase stain do not demonstrate any diagnostic cytoplasmic inclusions. The pathologic findings of this biopsy are compatible with clinical history of chronic active hepatitis C. Clinical correlation is indicated. Laboratory Results CBC CMP PT Hct: 45 % (02/07/23) A/G Ratio: 1.1 (02/07/23) INR: 1.1 (02/07/23) HGB: 15.5 gm/dL (02/07/23) AGAP: 13 mEq/L (02/07/23) PT: 12.4 second(s) (02/07/23) MCH: 30.3 pg (02/07/23) Albumin Lvl: 4.3 gm/dL (02/07/23) MCHC: 34.5 gm/dL (02/07/23) Alk Phos: 95 Int._Unit/L (02/07/23) MCV: 87.8 fL (02/07/23) ALT: 32 Int._Unit/L (02/07/23) MPV: 10.7 fL (02/07/23) AST: 45 Int._Unit/L High (02/07/23) Platelet: 226 E9/L (02/07/23) Bili Total: 0.9 mg/dL (02/07/23) RBC: 5.1 E12/L (02/07/23) BUN: 9 mg/dL (02/07/23) RDW: 14.1 % (02/07/23) BUN/Creat Ratio: 11 (02/07/23) WBC: 11.7 E9/L High (02/07/23) Calcium Lvl: 9.5 mg/d (more content not included)... Normal [facility] Comment on above: Result Comment: Elec tronically Signed By: Felipe BAR, Roxie Faith\.br\Date and Time Signed: 02/08/24 14:17 EDT US SCROTUM WITH DUPLEXon US SCROTUM WITH DUPLEX US SCROTUM WITH DUPLEX CLINICAL INFORMATION: Undescended right testicle. TECHNIQUE: Real-time sonographic evaluation of the scrotum and testes was performed with mix scale and color flow imaging. Real time mix scale, color flow imaging and duplex spectral Doppler waveform analysis evaluation was performed of the major arterial inflow and venous outflow structures of the testicles with arterial and venous spectral waveforms obtained and reviewed in view of the clinical history of Undescended right testicle testicular mass. Duplex spectral Doppler document arterial and venous spectral waveforms documented within the major arterial inflow and venous outflow of both testicles. Arterial and venous Doppler duplex spectral waveforms were evaluated. COMPARISON: No relevant prior studies available. FINDINGS: Right testicle measures 4.7 x 1.8 x 3.3 cm. Left testicle measures 4.5 x 1.9 x 3.4 cm. Small bilateral epididymal cysts. Small bilateral hydroceles. The arterial and venous waveforms are within normal limits. IMPRESSION: * Unremarkable appearance of the testes. * Small epididymal cysts. Finalized by Massimo Duggan MD on 11/19/2023 11:54 AM Normal [facility] DRUG SCREEN, URINEon 024 AMPHETAMINE/METHAMP Negative Normal NEG [facility] Comment on above: Result Comment: AMPH /METH screening cut off = 1000 ng/mL Performed By: #### D BONE #### [facility] ([id number]) [address], [address] [place] [address] BARBITURATES Negative Normal NEG [facility] Comment on above: Result Comment: Aishwarya iturates screening cut off value = 200 ng/mL Performed By: #### D BONE #### [facility] ([id number]) [address], [address] [place] [address] BENZODIAZEPINES Positive Abnormal NEG [facility] Comment on above: Result Comment: Conf irmation available upon request. Benzodiazepines screening cut off value = 200 ng/mL Performed By: #### D BONE #### [facility] ([id number]) [address], [address] [place] [address] CANNABINOIDS Positive Abnormal NEG [facility] Comment on above: Result Comment: Conf irmation available upon request. Cannabinoids/THC screening cut off value = 50 ng/mL Performed By: #### D BONE #### [facility] ([id number]) [address], [address] [place] [address] COCAINE METABOLITE Negative Normal NEG [facility] Comment on above: Result Comment: Coca ine screening cut off value = 300 ng/mL Performed By: #### D BONE #### [facility] ([id number]) [address], [address] [place] [address] ECSTASY Negative Normal NEG [facility] Comment on above: Result Comment: Ecst asy screening cut off value = 500 ng/mL This report is intended for use in clinical monitoring or management of patients. Performed By: #### D BONE #### [facility] ([id number]) [address], [address] [place] [address] METHADONE Negative Normal NEG [facility] Comment on above: Result Comment: Meth adone screening cut off value = 300 ng/mL. Performed By: #### D BONE #### [facility] ([id number]) [address] [facility], [address] [place] [address] OPIATES Negative Normal NEG [facility] Comment on above: Result Comment: Opia ara screening cut off value = 300 ng/mL NOTE: This test is used for the detection of codeine, hydrocodone (>1000 ng/mL), morphine and hydromorphone (>900 ng/mL) in urine. Performed By: #### D BONE #### [facility] ([id number]) [address] [facility], [address] [place] [address] OXYCODONE Negative Normal NEG [facility] Comment on above: Result Comment: Oxyc odone screening cut off value = 300 ng/mL NOTE: This test is used for the detection of oxycodone and oxymorphone in urine. Performed By: #### D BONE #### [facility] ([id number]) [address], [address] [place] [address] PHENCYCLIDINE Negative Normal NEG [facility] Comment on above: Result Comment: Phen cyclidine screening cut off value = 25 ng/mL Performed By: #### D BONE #### [facility] ([id number]) [address], [address] [place] [address] CBC AND AUTO DIFFon 01-10-20 24 ABSOLUTE BASOPHIL 0.1 X10E9/L Normal 0.0-0.2 [facility] Comment on above: Performed By: #### 3 5365-6, CMP, 2857-1, CBCA, 3016-3, 51484-2 #### [facility] ([id number]) [address], [address] [place] [address] ABSOLUTE NEUTROPHIL 4.9 X10E9/L Normal 1.5-6.6 [facility] Comment on above: Performed By: #### 3 5365-6, CMP, 2857-1, CBCA, 3016-3, 25509-4 #### [facility] ([id number]) [address], [address] [place] [address] Basophils/100 WBC (Bld) 0.8 % Normal [facility] Comment on above: Performed By: #### 3 5365-6, CMP, 2857-1, CBCA, 3016-3, 43349-6 #### [facility] ([id number]) [address] [address] [place] [address] Eosinophils (Bld) [#/Vol] 0.1 10*3/uL Normal 0.0-0.4 [facility] Comment on above: Performed By: #### 3 5365-6, CMP, 2857-1, CBCA, 3016-3, 66001-3 #### [facility] ([id number]) [address] [address] [place] [address] Eosinophils/100 WBC (Bld) 1.5 % Normal [facility] Comment on above: Performed By: #### 3 5365-6, CMP, 2857-1, CBCA, 3016-3, 25339-1 #### [facility] ([id number]) [address] [address] [place] [address] Erythrocyte distribution width (RBC) [Ratio] 14.7 % Normal 11.5-15.0 [facility] Comment on above: Performed By: #### 3 5365-6, CMP, 2857-1, CBCA, 3016-3, 67220-0 #### [facility] ([id number]) [address], [address] [place] [address] Hematocrit (Bld) [Volume fraction] 46.5 % Normal 39-49 [facility] Comment on above: Performed By: #### 3 5365-6, CMP, 2857-1, CBCA, 3016-3, 18569-0 #### [facility] ([id number]) [address], [address] [place] [address] Hemoglobin (Bld) [Mass/Vol] 15.5 g/dL Normal 13.0-17.0 [facility] Comment on above: Performed By: #### 3 5365-6, CMP, 2857-1, CBCA, 3016-3, 35070-6 #### [facility] ([id number]) [address], [address] [place] [address] Lymphocytes (Bld) [#/Vol] 3.4 10*3/uL Normal 1.0-3.5 [facility] Comment on above: Performed By: #### 3 5365-6, CMP, 2857-1, CBCA, 3016-3, 83569-2 #### [facility] ([id number]) [address], [address] [place] [address] Lymphocytes/100 WBC (Bld) 36.6 % Normal [facility] Comment on above: Performed By: #### 3 5365-6, CMP, 2857-1, CBCA, 3016-3, 22909-0 #### [facility] ([id number]) [address], [address] [place] [address] MCH (RBC) [Entitic mass] 29.6 pg Normal 27-34 [facility] Comment on above: Performed By: #### 3 5365-6, CMP, 2857-1, CBCA, 3016-3, 26320-7 #### [facility] ([id number]) [address], [address] [place] [address] MCHC (RBC) [Mass/Vol] 33.4 g/dL Normal 32-36 [facility] Comment on above: Performed By: #### 3 5365-6, CMP, 2857-1, CBCA, 3016-3, 05525-5 #### [facility] ([id number]) [address], [address] [place] [address] MCV (RBC) [Entitic vol] 89 fL Normal 80-100 [facility] Comment on above: Performed By: #### 3 5365-6, CMP, 2857-1, CBCA, 3016-3, 45754-8 #### [facility] ([id number]) [address], [address] [place] [address] Monocytes (Bld) [#/Vol] 0.8 10*3/uL Normal 0-0.9 [facility] Comment on above: Performed By: #### 3 5365-6, CMP, 2857-1, CBCA, 3016-3, 79532-0 #### [facility] ([id number]) [address], [address] [place] [address] Monocytes/100 WBC (Bld) 8.6 % Normal [facility] Comment on above: Performed By: #### 3 5365-6, CMP, 2857-1, CBCA, 3016-3, 40237-3 #### [facility] ([id number]) [address], [address] [place] [address] Neutrophils/100 WBC (Bld) 52.5 % Normal [facility] Comment on above: Performed By: #### 3 5365-6, CMP, 2857-1, CBCA, 3016-3, 97258-4 #### [facility] ([id number]) [address], [address] [place] [address] Platelet mean volume (Bld) [Entitic vol] 13.1 fL High 7-12 [facility] Comment on above: Performed By: #### 3 5365-6, CMP, 2857-1, CBCA, 3016-3, 26278-2 #### [facility] ([id number]) [address], [address] [place] [address] Platelets (Bld) [#/Vol] 213 10*3/uL Normal 150-450 [facility] Comment on above: Performed By: #### 3 5365-6, CMP, 2857-1, CBCA, 3016-3, 36137-8 #### [facility] ([id number]) [address], [address] [place] [address] RBC COUNT 5.23 X10E12/L Normal 4.10-5.70 [facility] Comment on above: Performed By: #### 3 5365-6, CMP, 2857-1, CBCA, 3016-3, 10970-9 #### [facility] ([id number]) [address], [address] [place] [address] WBC (Bld) [#/Vol] 9.3 10*3/uL Normal 4.0-11.0 [facility] Comment on above: Performed By: #### 3 5365-6, CMP, 2857-1, CBCA, 3016-3, 61189-2 #### [facility] ([id number]) [address], [address] [address] CBC auto differentialon 07-31 Basophils (Bld) [#/Vol] 0.1 10*3/uL [facility] Basophils/100 WBC (Bld) 0.8 % [facility] Eosinophils (Bld) [#/Vol] 0.1 10*3/uL [facility] Eosinophils/100 WBC (Bld) 1.5 % [facility] Erythrocyte distribution width (RBC) [Ratio] 14.7 % 11.5 - 15.0 % [facility] Hematocrit (Bld) [Volume fraction] 46.5 % 39 - 49 % [facility] Hemoglobin (Bld) [Mass/Vol] 15.5 g/dL 13.0 - 17.0 g/dL [facility] Interpretation and review of laboratory results Abnormal [facility] Lymphocytes (Bld) [#/Vol] 3.4 10*3/uL [facility] Lymphocytes/100 WBC (Bld) 36.6 % [facility] MCH (RBC) [Entitic mass] 29.6 pg 27 - 34 pg [facility] MCHC (RBC) [Mass/Vol] 33.4 g/dL 32 - 36 g/dL P [facility] MCV (RBC) [Entitic vol] 89 fL 80 - 100 fL [facility] Monocytes (Bld) [#/Vol] 0.8 10*3/uL [facility] Monocytes/100 WBC (Bld) 8.6 % [facility] Neutrophils (Bld) [#/Vol] 4.9 10*3/uL [facility] Neutrophils/100 WBC (Bld) 52.5 % [facility] Platelet mean volume (Bld) [Entitic vol] 13.1 fL High 7 - 12 fL [facility] Platelets (Bld) [#/Vol] 213 10*3/uL [facility] RBC (Bld) [#/Vol] 5.23 10*6/uL [facility] WBC corrected for nucl RBC Auto (Bld) [#/Vol] 9.3 [facility] COMPREHENSIVE METABOLIC PANE Harjeet 08-09-2023 Albumin [Mass/Vol] 4.5 g/dL Normal 3.2-5.3 [facility] Comment on above: Performed By: #### 3 5365-6, CMP, 2857-1, CBCA, 3016-3, 21452-3 #### [facility] ([id number]) [address] [facility] [address] [place] [address] ALP [Catalytic activity/Vol] 99 U/L Normal 39-130 [facility] Comment on above: Performed By: #### 3 5365-6, CMP, 2857-1, CBCA, 3016-3, 32684-9 #### [facility] ([id number]) [address] [place] [address] ALT [Catalytic activity/Vol] 48 U/L High 0-40 [facility] Comment on above: Performed By: #### 3 5365-6, CMP, 2857-1, CBCA, 3016-3, 10723-4 #### [facility] ([id number]) [address], [address] [place] [address] Anion gap [Moles/Vol] 8 mmol/L Normal 5-15 [facility] Comment on above: Performed By: #### 3 5365-6, CMP, 2857-1, CBCA, 3016-3, 24534-1 #### [facility] ([id number]) [address], [address] [place] [address] AST [Catalytic activity/Vol] 43 U/L High 0-41 [facility] Comment on above: Performed By: #### 3 5365-6, CMP, 2857-1, CBCA, 3016-3, 20710-9 #### [facility] ([id number]) [address], [address] [place] [address] Bilirubin [Mass/Vol] 0.7 mg/dL Normal 0.3-1.2 [facility] Comment on above: Performed By: #### 3 5365-6, CMP, 2857-1, CBCA, 3016-3, 98597-6 #### [facility] ([id number]) [address], [address] [place] [address] Calcium [Mass/Vol] 9.1 mg/dL Normal 8.5-10.5 [facility] Comment on above: Performed By: #### 3 5365-6, CMP, 2857-1, CBCA, 3016-3, 45480-2 #### [facility] ([id number]) [address], [address] [place] [address] Chloride [Moles/Vol] 102 mmol/L Normal 98-109 [facility] Comment on above: Performed By: #### 3 5365-6, CMP, 2857-1, CBCA, 3016-3, 08332-9 #### [facility] ([id number]) [address], [address] [place] [address] CO2 [Moles/Vol] 30 mmol/L Normal 22-32 [facility] Comment on above: Performed By: #### 3 5365-6, CMP, 2857-1, CBCA, 3016-3, 76717-0 #### [facility] ([id number]) [address], [address] [place] [address] Creatinine [Mass/Vol] 0.66 mg/dL Normal 0.60-1.30 [facility] Comment on above: Result Comment: METH OD TRACEABLE TO IDMS STANDARD Performed By: #### 3 5365-6, CMP, 2857-1, CBCA, 3016-3, 23084-2 #### [facility] ([id number]) [address], [address] [place] [address] eGFR (CKD-EPI) NON-RACE DEPENDENT >90 Normal >59 [facility] Comment on above: Result Comment: Reported eGFR is based on the CKD-EPI 2020 equation that does not use a race coefficient. Performed By: #### 3 5365-6, CMP, 2857-1, CBCA, 3016-3, 91392-5 #### [facility] ([id number]) [address], [address] [place] [address] Glucose [Mass/Vol] 101 mg/dL High 65-99 [facility] Comment on above: Performed By: #### 3 5365-6, CMP, 2857-1, CBCA, 3016-3, 88351-9 #### [facility] ([id number]) [address], [address] [place] [address] Potassium [Moles/Vol] 4.7 mmol/L Normal 3.5-5.0 [facility] Comment on above: Performed By: #### 3 5365-6, CMP, 2857-1, CBCA, 3016-3, 99558-1 #### [facility] ([id number]) [address], [address] [place] [address] Protein [Mass/Vol] 7.4 g/dL Normal 6.0-8.0 [facility] Comment on above: Performed By: #### 3 5365-6, CMP, 2857-1, CBCA, 3016-3, 26314-6 #### [facility] ([id number]) [address], [address] [place] [address] Sodium [Moles/Vol] 140 mmol/L Normal 134-146 [facility] Comment on above: Performed By: #### 3 5365-6, CMP, 2857-1, CBCA, 3016-3, 10782-8 #### [facility] ([id number]) [address], [address] [place] [address] Urea nitrogen [Mass/Vol] 8 mg/dL Normal 5-23 [facility] Comment on above: Performed By: #### 3 5365-6, CMP, 2857-1, CBCA, 3016-3, 55456-0 #### [facility] ([id number]) [address], [address] [place] [address] Comprehensive metabolic pane harjeet 08-09-2023 Albumin [Mass/Vol] 4.5 g/dL 3.2 - 5.3 g/dL [facility] ALP [Catalytic activity/Vol] 99 U/L 39 - 130 U/L [facility] ALT No additional P-5'-P [Catalytic activity/Vol] 48 U/L High 0 - 40 U/L [facility] Anion gap [Moles/Vol] 8 mmol/L 5 - 15 mmol/L [facility] AST [Catalytic activity/Vol] 43 U/L High 0 - 41 U/L [facility] Bilirubin [Mass/Vol] 0.7 mg/dL 0.3 - 1 .2 mg/dL [facility] Calcium [Mass/Vol] 9.1 mg/dL 8.5 - 10. 5 mg/dL [facility] Chloride [Moles/Vol] 102 mmol/L 98 - 10 9 mmol/L [facility] CO2 [Moles/Vol] 30 mmol/L 22 - 32 mmol/L [facility] Creatinine [Mass/Vol] 0.66 mg/dL 0.60 - 1.30 mg/dL [facility] Comment on above: METHOD TRACEABLE TO [facility] STANDARD eGFR (CKD-EPI)non-race dependent - PINF [facility] Comment on above: Reported eGFR is based on the CKD-EPI 2020 equation that does not use a race coefficient. Glucose [Mass/Vol] 101 mg/dL High 65 - 99 mg/dL [facility] Potassium [Moles/Vol] 4.7 mmol/L 3.5 - 5.0 mmol/L [facility] Protein [Mass/Vol] 7.4 g/dL 6.0 - 8.0 g/dL [facility] Sodium [Moles/Vol] 140 mmol/L 134 - 146 mmol/L [facility] Urea nitrogen [Mass/Vol] 8 mg/dL 5 - 23 mg/dL [facility] HGB A1C (GLYCO-HGB)on 2023 Glucose [Mass/Vol] 111 mg/dL Normal [facility] Comment on above: Performed By: #### 3 5365-6, CMP, 2857-1, CBCA, 3016-3, 40807-4 #### [facility] ([id number]) [address] [place] [address], [address] [place] [address] HbA1c (Bld) [Mass fraction] 5.5 % Normal 4.4-5.6 [facility] Comment on above: Result Comment: NOTE ADA Guidelines Result HgbA1c Normal : less than 5.7 % Prediabetes : 5.7 % to 6.4 % Diabetes : > 6.4 % Use with caution in patients with abnormal hemoglobin variants as the half-life of red blood cells and in vivo glycation rates are affected. Performed By: #### 3 5365-6, CMP, 2857-1, CBCA, 3016-3, 48888-2 #### [facility] ([id number]) [address], [address] [place] [address] Lipid 1996 panelon 4 Cholesterol [Mass/Vol] 201 mg/dL High 150 - 200 mg/dL [facility] Cholesterol in HDL [Mass/Vol] 54 mg/dL 39 - PINF mg/dL [facility] Comment on above: HDL <40 mg/dL - High Risk HDL > or = 40mg/dL- Desirable HDL >60 mg/dL - Negative Risk Cholesterol in LDL [Mass/Vol] 133 mg/dL High NINF - 130 mg/dL [facility] Comment on above: LDL <100 mg/dL - Desirable LDL >160 mg/dL - High Risk Cholesterol in VLDL [Mass/Vol] 14 mg/dL 0 - 30 mg/dL [facility] Cholesterol.total/Cho lesterol in HDL [Mass ratio] 3.7 {ratio} 1.0 - 5.0 [facility] Triglyceride [Mass/Vol] 72 mg/dL 27 - 150 mg/dL [facility] Cholesterol [Mass/Vol] 201 mg/dL High 150-200 [facility] Comment on above: Performed By: #### 3 5365-6, CMP, 2857-1, CBCA, 3016-3, 70364-4 #### [facility] ([id number]) [address], [address] [place] [address] Cholesterol in HDL [Mass/Vol] 54 mg/dL Normal >39 [facility] Comment on above: Result Comment: HDL <40 mg/dL - High Risk HDL > or = 40mg/dL- Desirable HDL >60 mg/dL - Negative Risk Performed By: #### 3 5365-6, CMP, 2857-1, CBCA, 3016-3, 72285-7 #### [facility] ([id number]) [address], [address] [place] [address] Cholesterol in LDL [Mass/Vol] 133 mg/dL High <130 [facility] Comment on above: Result Comment: LDL <100 mg/dL - Desirable LDL >160 mg/dL - High Risk Performed By: #### 3 5365-6, CMP, 2857-1, CBCA, 3016-3, 35024-2 #### [facility] ([id number]) [address], [address] [place] [address] Cholesterol in VLDL [Mass/Vol] 14 mg/dL Normal 0-30 [facility] Comment on above: Performed By: #### 3 5365-6, CMP, 2857-1, CBCA, 3016-3, 40073-1 #### [facility] ([id number]) [address], [address] [place] [address] CHOLESTEROL:HDL 3.7 Normal 1.0-5.0 [facility] Comment on above: Performed By: #### 3 5365-6, CMP, 2857-1, CBCA, 3016-3, 26298-0 #### [facility] ([id number]) [address], [address] [place] [address] Triglyceride [Mass/Vol] 72 mg/dL Normal 27-150 [facility] Comment on above: Performed By: #### 3 5365-6, CMP, 2857-1, CBCA, 3016-3, 25977-1 #### [facility] ([id number]) [address], [address] [place] [address] No Panel Informationon 08-09 Interpretation and review of laboratory results Abnormal [facility] Prostate specific Ag [Mass/V ol]on 08-09-2023 PSA SCREEN 0.18 ng/mL Normal 0.00-4.00 [facility] Comment on above: Result Comment: The method used for this test is [employer] DXI chemiluminescent immunoassay. Values obtained by different assay methods cannot be used interchangeably. Performed By: #### 3 5365-6, CMP, 2857-1, CBCA, 3016-3, 57986-6 #### [facility] ([id number]) [address] [place] [address] TSHon 08-09-2023 TSH Qn 1.42 m[IU]/L [facility] TSH Qnon 08-09-2023 [facility] TSH 1.42 uIU/mL Normal 0.49-4.67 [facility] Comment on above: Performed By: #### 3 5365-6, CMP, 2857-1, CBCA, 3016-3, 52461-1 #### [facility] ([id number]) [address], [address] [place] [address] Vitamin D 25 hydroxyon 08-09 Vitamin D+Metabolites [Mass/Vol] ng/mL Low 30 - 100 ng/mL [facility] Comment on above: Vitamin D status 25 [place] Vitamin D Deficiency <20 ng/mL Insufficiency 20-29 ng/mL Sufficiency 30-100 ng/mL Toxicity >100 ng/mL NOTE: A pediatric reference range has not been established by the commissioning manager of this kit. The [place] [employer] recommends a Vitamin D level of = or >20ng/mL in infants and children. Vitamin D+Metabolites [Mass/ Vol]on 08-09-2023 Interpretation and review of laboratory results Abnormal [facility] VITAMIN D 25 HYD TOT <7.0 Low 30-100 [facility] Comment on above: Result Comment: Vitamin D status 25 [place] Vitamin D Deficiency <20 ng/mL Insufficiency 20-29 ng/mL Sufficiency 30-100 ng/mL Toxicity >100 ng/mL NOTE: A pediatric reference range has not been established by the commissioning manager of this kit. The [place] [employer] recommends a Vitamin D level of = or >20ng/mL in infants and children. Performed By: #### 3 5365-6, CMP, 2857-1, CBCA, 3016-3, 56477-0 #### [facility] ([id number]) [address] [place] [address], [address] [place] [address] Reminderson 04-17-2023 Reminders - From: Yvette Doran CNP To: Emilia Matthew; Sent: 04/13/2023 10:42:30 EDT Show up: 04/13/2023 10:43:00 EDT Subject: Ambulatory Reminder Reminder/Recall Colonoscopy in 2029. 03/07/2030 7 year colon recall error colon due 08/08/2029 - From: Emilia Matthew To: [facility] - Reminders/Recalls; Sent: 04/17/2023 13:23:53 EDT ! Show up: 06/30/2029 13:23:00 EST Due Date/Time: 2029 13:23:00 EST Normal [facility] Reminders - From: Yvette Doran CNP To: Emilia Matthew; Sent: 04/13/2023 10:53:17 EDT Show up: 04/13/2023 10:54:00 EDT Subject: Ambulatory Reminder Reminder/Recall EGD in 2 years. 03/01/2025 2 year EGD recall - From: Emilia Matthew To: [facility] - Reminders/Recalls; Sent: 04/17/2023 13:20:12 EDT ! Show up: 01/28/2025 13:20:00 EDT Due Date/Time: 02/28/2025 13:20:00 EDT Normal [facility] Ambulatory Visit Summaryon 0 04-13-2023 Ambulatory Visit Summary QING CLARK :1965 Visit Date:04/13/2023 Ambulatory Visit Instructions Your Diagnosis Gastric erosions AVM (arteriovenous malformation) of duodenum, acquired Screen for colon cancer Your Care Team Attending Physician - Yvette Doran CNP Primary Care Physician - MARIA E GRAHAM CNP This Is Your Medications List Contact prescribing physician if questions or concerns albuterol (Ventolin HFA 90 mcg/inh Aerosol-Adpt) buprenorphine-naloxo ne (Suboxone 8 mg-2 mg sublingual film) duloxetine (Cymbalta) lorazepam (lorazepam 1 mg oral tablet) metoprolol (metoprolol succinate 25 mg oral tablet, extended release) omeprazole (omeprazole 40 mg Cap-DR) tamsulosin (Flomax 0.4 mg Cap) Procedures Performed Esophagogastroduoden oscopy (03/01/2023), Colonoscopy (08/08/2022). Discharge Vitals Temperature (Temporal Artery) 36 ?C Heart Rate (Peripheral) 63 Blood Pressure 134/85 Height 181 cm Height 71 in Weight 82.2 kg Weight 180.84 lb BMI 25.09 What to do next You Need to Schedule the Following Appointments Follow Up with William BAR, SH[facility], MED When: Within 1 month Where: [address], [address] [id number]- [phone] Medications What How Much When Instructions Unchanged albuterol (Ventolin HFA 90 mcg/ inh Aerosol-Adpt) 1 Puffs Inhalation Once as needed for for wheezing Contact prescribing physician if questions or concerns Unchanged buprenorphine-naloxo ne (Suboxone 8 mg-2 mg sublingual film) 1 Each Sublingual Every day Contact prescribing physician if questions or concerns Unchanged duloxetine (Cymbalta) By Mouth Contact prescribing physician if questions or concerns Unchanged lorazepam (lorazepam 1 mg oral tablet) Contact prescribing physician if questions or concerns Unchanged metoprolol (metoprolol succinate 25 mg oral tablet, extended release) 50 Milligram By Mouth Every day Contact prescribing physician if questions or concerns Unchanged omeprazole (omeprazole 40 mg Cap-DR) 1 Capsules By Mouth Every day Contact prescribing physician if questions or concerns Unchanged tamsulosin (Flomax 0.4 mg Cap) 1 Capsules By Mouth Every day Contact prescribing physician if questions or concerns Medications and Immunizations Administered Not Given influenza virus vaccine, inactivated, Patient Refuses Allergies penicillins (Unknown cause) Problems Ongoing - Any problem that you are currently receiving treatment for. Adenomatous colon polyp AVM (arteriovenous malformation) of duodenum, acquired Chronic active hepatitis C Compensated HCV cirrhosis Gastric erosions Screen for colon cancer Smoker Education Materials Gastrointestinal Arteriovenous Malformations A gastrointestinal arteriovenous malformation is a rare defect of tangled veins and arteries in the intestine. This defect can occur anywhere in the intestine. The defect creates an abnormal collection of blood vessels that can put pressure on other parts of your body that are close by. It causes blood vessels to expand (dilate) over time and sometimes bleed. Many people with this defect never have any symptoms. What are the causes? The cause of this condition is not known. This defect may be present at (congenital). It may be related to genetic causes or other factors. What are the signs or symptoms? Signs and symptoms often do not appear until you are older and may include: ? Blood in your stool. ? Black or dark red stools. ? Weakness or tiredness. ? Shortness of breath. ? Iron deficiency anemia. ? Dizziness or fainting. ? Abdominal pain. How is this diagnosed? This condition is diagnosed based on a physical exam and a medical history. Imaging tests may also be done, such as: ? X-ray. ? CT scan. ? Angiogram. This is a procedure used to examine the blood vessels. In this procedure, contrast dye is injected through a thin tube (catheter) into an artery. X-rays are then taken, which show if there is a blockage or problem in a blood vessel. ? Endoscopy. In this procedure, your health care provider passes a thin, flexible tube (endoscope) through your mouth and down your esophagus into your stomach. A small camera is attached to the end of the tube. Images from the camera appear on a monitor in the exam room. ? Small bowel enteroscopy. This is a procedure that uses a long thin scope to visualize areas in the small bowel. ? Capsule endoscopy. In this procedure, you will swallow a small capsule that has a tiny camera and transmitter in it. This capsule naturally travels through your digestive system. The camera takes photos of the small intestine along the way. How is this treated? The goal of treatment is to stop blood loss and prevent any future bleeding. Treatment may include: ? Procedures to stop the bleeding or to destroy the affected vessels. ? Abdominal selwyn (more content not included)... [facility] Gastroenterology Office/Clin ic Noteon 04-13-2023 Gastroenterology Office/Clinic Note Chief Complaint EGD results. HPI Staff This is a 57 year old male who presents today for a follow up to EGD. Hepatitis treatment previously ordered by Dr. Monroy completed 03/2023. History of Present Illness Patient is a 57-year-old male who presents for follow-up from EGD completed 03/01/[address] Monroy. Patient was previously evaluated by Dr. 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 Note indicated patient had stopped using drugs in 1999. Note also indicated patient with history of colonoscopy 07/2022 and had small tubular adenoma removed from descending colon and is due for repeat colonoscopy in 2029. Note also indicated patient with F4 fibrosis, suggestive of liver cirrhosis. Note indicated patient's liver biopsy was consistent with liver cirrhosis?managed by Dr. Thomas. Patient was ordered EGD to evaluate for esophageal varices. Patient was also started on Epclusa previously by Dr. Monroy. Recent hepatitis C testing 04/06/2023 was negative indicating eradication of hepatitis C infection with Epclusa. EGD completed 03/01/2023 revealed normal esophagus, no varices, moderate gastric erosions with speckles of old blood, gastric body biopsy was normal, negative for H. pylori, normal duodenum with exception of pinpoint nonbleeding AVMs in second part of duodenum. Dr. Monroy recommended for patient to avoid alcohol and NSAIDs, to take omeprazole 40 mg daily x8 weeks, and to have repeat EGD in 2 years. Patient had previous colonoscopy 08/08/[address] Monroy that revealed diverticulosis, hemorrhoids, 5 mm ascending colon polyp removed that pathology revealed was tubular adenoma- Dr. Monroy recommended for patient to have repeat colonoscopy in 2029. During today's visit, patient reports he is doing well. Is having 1 formed BM daily. He reports he used to take Ibuprofen 3-4 months ago- reportedly used to take 3-4 times a month and is no longer taking. Patient reports he used to drink alcohol 5 years ago- he reportedly used to drink 1, 24 pack of beer a day for 20 years and is no longer drinking ETOH at all. Denies acid reflux, dysphagia, nausea/vomiting, fevers/chills, black/bloody stools, and denies having any GI complaints. Review of Systems ROS - Provider Constitutional: no fever, no chills. Skin: no Jaundice. ENMT: Denies dysphagia and heartburn. Respiratory: no shortness of breath. Cardiovascular: no chest pain. Gastrointestinal: no nausea, no vomiting, no diarrhea, no GI bleeding. Physical Exam Vitals & Measurements T: 36 ?C(Temporal Artery) HR: 63(Peripheral) BP: 134/85 HT: 71 in HT: 181 cm WT: 82.2 kg WT: 180.84 lb BMI: 25.09 General: Well developed, well nourished, in no acute distress Head: Normocephalic/atraum atic Lungs: Normal respiratory effort and clear to auscultation Cardio: Regular rate and rhythm, normal S1 and S2, no murmur, no rub Abdomen: Soft, non-distended, non-tender. Normoactive bowel sounds present in all 4 abdominal quadrants, bilaterally. Mental Status: Alert and oriented x3. Normal mood and affect Assessment/Plan 1. Gastric erosions (K25.9: Gastric ulcer, unspecified as acute or chronic, without hemorrhage or perforation) EGD completed 03/01/2023 revealed normal esophagus, no varices, moderate gastric erosions with speckles of old blood, gastric body biopsy was normal, negative for H. pylori, normal duodenum with exception of pinpoint nonbleeding AVMs. Patient reports he used to drink alcohol 5 years ago- he reportedly used to drink 1, 24 pack of beer a day for 20 years and is no longer drinking ETOH at all. Educated to avoid alcohol and NSAIDs, educated regarding importance of taking omeprazole 40 mg daily x8 weeks for gastric erosions, and to have repeat EGD in 2 years- 2024. Ordered: 2. AVM (arteriovenous malformation) of duodenum, acquired (K31.819: Angiodysplasia of stomach and duodenum without bleeding) EGD completed 03/01/2023 revealed normal esophagus, no varices, moderate gastric erosions with speckles of old blood, gastric body biopsy was normal, negative for H. pylori, normal duodenum with exception of pinpoint nonbleeding AVMs. Educated to avoid alcohol and NSAIDs, educated regarding importance of taking omeprazole 40 mg daily x8 weeks, and to have repeat EGD in 2 years- 2024. Ordered: 3. Screen for colon cancer (Z12.11: Encounter for screening for malignant neoplasm of colon) Previous colonoscopy 08/08/[address] Monroy revealed diverticulosis, hemorrhoids, 5 mm ascending colon polyp removed that pathology revealed was tubular adenoma- Dr. Monroy recommended for patient to have repeat colonoscopy in 2030. Follow-up With When Contact Information iWlliam BAR, Gisel Harris [facility], [facility] Within 1 month [address] [facility] [address], [address] [phone] Additional Instructions: Patient Education Gastrointestinal Arteriovenous Malformations Problem List/Past Medical History Ongoing [place] (more content not included)... [facility] Comment on above: Result Comment: Elec tronically Signed By: Yvette Doran CNP\.marge\Date and Time Signed: 04/13/23 11:07 EDT Patient Educationon 04-13-20 Patient Education Genetic Medicine Gastrointestinal Arteriovenous Malformations A gastrointestinal arteriovenous malformation is a rare defect of tangled veins and arteries in the intestine. This defect can occur anywhere in the intestine. The defect creates an abnormal collection of blood vessels that can put pressure on other parts of your body that are close by. It causes blood vessels to expand (dilate) over time and sometimes bleed. Many people with this defect never have any symptoms. What are the causes? The cause of this condition is not known. This defect may be present at (congenital). It may be related to genetic causes or other factors. What are the signs or symptoms? Signs and symptoms often do not appear until you are older and may include: ? Blood in your stool. ? Black or dark red stools. ? Weakness or tiredness. ? Shortness of breath. ? Iron deficiency anemia. ? Dizziness or fainting. ? Abdominal pain. How is this diagnosed? This condition is diagnosed based on a physical exam and a medical history. Imaging tests may also be done, such as: ? X-ray. ? CT scan. ? Angiogram. This is a procedure used to examine the blood vessels. In this procedure, contrast dye is injected through a thin tube (catheter) into an artery. X-rays are then taken, which show if there is a blockage or problem in a blood vessel. ? Endoscopy. In this procedure, your health care provider passes a thin, flexible tube (endoscope) through your mouth and down your esophagus into your stomach. A small camera is attached to the end of the tube. Images from the camera appear on a monitor in the exam room. ? Small bowel enteroscopy. This is a procedure that uses a long thin scope to visualize areas in the small bowel. ? Capsule endoscopy. In this procedure, you will swallow a small capsule that has a tiny camera and transmitter in it. This capsule naturally travels through your digestive system. The camera takes photos of the small intestine along the way. How is this treated? The goal of treatment is to stop blood loss and prevent any future bleeding. Treatment may include: ? Procedures to stop the bleeding or to destroy the affected vessels. ? Abdominal surgery to remove the affected section of the digestive system. ? Blood transfusion to replace blood loss. ? Iron supplements for iron deficiency anemia. Follow these instructions at home: ? Take jyav-yep-urmwtce and prescription medicines only as told by your health care provider. This includes iron supplements, if you are told to use them. ? Keep all follow-up visits. This is important. Contact a health care provider if: ? You have streaks of blood in your stool for a long time. ? Your stool is black or deep red. ? You have signs of anemia such as weakness, fatigue, or shortness of breath. ? You have new symptoms. Get help right away if: ? You see bright red blood during a bowel movement. ? You become dizzy or faint. These symptoms may represent a serious problem that is an emergency. Do not wait to see if the symptoms will go away. Get medical help right away. Call your local emergency services (911 in the [place] Do not drive yourself to the hospital. Summary ? Gastrointestinal arteriovenous malformation refers to an abnormal collection of blood vessels that can put pressure on other parts of your body that are close by. It causes blood vessels to dilate over time and sometimes bleed. ? Many people with this defect never have any symptoms. ? The goal of treatment is to stop blood loss and prevent any future bleeding. This information is not intended to replace advice given to you by your health care provider. Make sure you discuss any questions you have with your health care provider. Document Revised: 12/30/2021 Document Reviewed: 12/30/2021 [employer] Patient Education ? 2022 [employer] [facility] HCV RT-PCR, Quant (Non-Graph )on 04-09-2023 HCV RNA VANESSA+probe Qn Not detected Invalid Interpretation Code [facility] Comment on above: Performed By: #### 1 [id number] ####[facility] [address] [place] [address] Test Information: Comment Invalid Interpretation Code [facility] Comment on above: Result Comment: The quantitative range of this assay is 15 IU/mL to 100 million IU/mL. Performed at: [address] [id number] MD Antwan Barnett Performed By: #### 1 [id number] ####[facility] [address] [place] [address] Consent for Treatmenton Consent for Treatment [id number] #1.00CD:127 [facility] IntraOperative Documentson 0 03-06-2023 IntraOperative Documents [id number] 1#1.00CD:127 [facility] Consenton 03-02-2023 Consent [id number] 5#1.00CD:127 [facility] Discharge Instructionson Discharge Instructions [id number] 0#1.00CD:127 [facility] Main OR Intraoperative Recor don 03-02-2023 Main OR Intraoperative Record IntraOp Document Type FT Summary Primary Physician: Cristo MONROY MD Finalized Date/Time: 03/02/23 08:33:36 Pt. Name: QING CLARK Kim /Sex: 1965 Male Med Rec #: [id number] Physician: Cristo MONROY MD Financial #: [id number] Pt. Type: O Room/Bed: [facility] 11/28 Admit/Disch: 03/01/23 08:37:00 - 03/01/23 09:57:00 Institution: Case Times FT Entry 1 Patient Times In Room 03/01/23 09:19:00 Out Room 03/01/23 09:26:00 Procedure Times Start 03/01/23 09:22:00 Stop 03/01/23 09:24:00 Anesthesia Times Start 03/01/23 09:19:00 Stop 03/01/23 09:26:00 Last Modified By: Khanh CAZARES, Andreia Syed 03/01/23 09:26:34 General Comments: 03/02/23 chart opened for charge review per Dilan Wolff RN. [place] Case Attendance FT Entry 1 Entry 2 Entry 3 Case Attendee Deppen JOSE CARLOS, Rita Cassidy RN, Almita Griffith Role Performed COMMUNICATIONS PLANNER Geospatial Developer - Primary Scrub - Primary Time In 03/01/23 09:19:00 03/01/23 09:19:00 03/01/23 09:19:00 Time Out 03/01/23 09:26:00 03/01/23 09:26:00 03/01/23 09:26:00 Procedure EGD(.) EGD(.) EGD(.) Comments Dr. Cherry supervising case Last Modified By: Khanh CAZARES, Andreia Cassidy RN, Andreia Cassidy RN, Andreia Syed 03/01/23 09:26:35 F 03/01/23 09:26:35 F 03/01/23 09:26:35 Entry 4 Case Attendee Cristo MONROY MD Role Performed Surgeon - Primary Time In 03/01/23 09:19:00 Time Out 03/01/23 09:26:00 Procedure EGD(.) Comments Last Modified By: Andreia Cassidy RN 03/01/23 09:26:35 Perioperative Protocols FT Pre-Care Text: Implements protective measures prior to operative or invasive procedure, confirms identity before the operative or invasive procedure, verifies operative procedure, surgical site, and laterality Entry 1 Procedure(s) EGD(.) Patient Identity Birthday, ID Band Verified (select at Check, Patient least 2): Participation Consents / H and P Anesthesia Consent, Operative Site N/A Verified HandP, Surgery/Procedure Marking Verified Consent Surgical Site No Laterality Verified n/a Verified Procedure Verified Yes Correct Patient Yes Position Verified Availability Equipment, Medication Prep Dry n/a Verified (If Applicable) PreOp Antibiotic No Time Out Deppen Rita BRANCH, Given Participants Andreia Cassidy RN Evan Kirstyn K, SALAM MD, Maher Time Out Complete 03/01/23 09:20:00 Outcomes Met? Yes Last Modified By: Andreia Cassidy RN 03/01/23 09:20:39 Post-Care Text: The patient is free from signs and symptoms of injury caused by extraneous objects Allergy Information FT Pre-Care Text: Verifies allergies Entry 1 Allergies Reviewed? Yes Allergies Reviewed Self/Patient With Outcomes Met? Yes Last Modified By: Andreia Cassidy RN 03/01/23 07:12:04 Post-Care Text: The patient received appropriate medication(s) safely administered during the perioperative period Surgical Procedures FT Entry 1 Procedure Description Procedure EGD Modifiers . Surgeon Description EGD with gastric biopsy. Primary Procedure Yes Primary Surgeon Cristo MONROY MD Start 03/01/23 09:22:00 Stop 03/01/23 09:24:00 Anesthesia Type General Surgical Service Gastroenterology Wound Class 2 - Clean-Contaminated Last Modified By: Andreia Cassidy RN 03/01/23 09:24:09 General Case Data FT Pre-Care Text: Classifies surgical wound, implements aseptic technique, initiates traffic control Entry 1 Case Information OR ENDO 1 FT Case Level Level 2 Wound Class 2 - Clean-Contaminated Specialty Gastroenterology ASA Class 3 Preop Diagnosis Complicated HCV Postop Same As Preop No cirrhosis Postop Diagnosis Gastric erosions, Outcomes Met? Yes duodenal AVM Last Modified By: Andreia Cassidy RN 03/01/23 09:23:22 Post-Care Text: The patient is free from signs and symptoms of infection Skin Assessment (Pre Procedure) FT Pre-Care Text: Implements protective measures to prevent skin/ tissue injury due to thermal or mechanical sources Evaluates for signs and symptoms of physical injury to skin and tissue Entry 1 Skin Integrity Intact, [place], Warm, and Skin Abnormality No Dry Outcomes Met? Yes Last Modified By: Andreia Cassidy RN 03/01/23 07:12:34 Post-Care Text: The patient is free from signs and symptoms of injury caused by extraneous objects Patient Positioning FT Pre-Care Text: Identifies physical alterations that require additional precautions for procedure-specific positioning, verifies presence of prosthetics or corrective devices, positions the patient, evaluates the patient for signs and symptoms of injury as a result of positioning Entry 1 Procedure EGD(.) Body Position Lateral, right side up Feet Uncrossed? Yes Left Arm Position Resting at Side Right Arm Position Resting at Side Left Leg Position Extended Right Leg Position Extended Positioning Device Safety Strap, Pillow Under Head Large Press Points Checked Yes By Den (more content not included)... Normal [facility] Postoperative Documentson Postoperative Documents [id number] 1#1.00CD:127 [facility] Consent for Treatmenton Consent for Treatment [id number] #1.00CD:127 [facility] Discharge Instructionson Discharge Instructions QING CLARK :1965 Visit Date:03/01/2023 Inpatient Discharge Instructions Your Care Team Admitting Physician - Cristo MONROY MD Referring Physician - Cristo MONROY MD Reason for Your Visit COMPLICATED HCV CIRRHOSIS Your Diagnosis Cirrhosis of liver Tests Performed Pathology Tissue Exam -- Results Pending -- Please visit your patient portal for your results or contact your primary care physician. This Is Your Medications List albuterol (Ventolin HFA 90 mcg/inh Aerosol-Adpt) buprenorphine-naloxo ne (Suboxone 8 mg-2 mg sublingual film) duloxetine (Cymbalta) lorazepam (lorazepam 1 mg oral tablet) metoprolol (metoprolol succinate 25 mg oral tablet, extended release) omeprazole (omeprazole 40 mg Cap-DR) tamsulosin (Flomax 0.4 mg Cap) [Image Removed: STOP]Stop taking these medications lisinopril Procedure History Esophagogastroduoden oscopy (03/01/2023), Colonoscopy (08/08/2022). What to do next Instructions From Your Doctor Event Name Event Result Discharge Instructions Freetext Avoid alcohol and NSAIDsStart omeprazole 40 mg p.o. daily for 8 weeks Discharge Activity Resume normal activities in 24 hours Discharge Restrictions No driving for 24 hrs, Do not operate machinery or tools, Do not make important decisions for 24 hours Discharge Diet(s) Low Sodium- 2000 mg Pharmacy Information Other: [facility] [place], [place] Discharge Instructions Discharge Instructions New Follow Up Appointments after Discharge Follow Up with ELIANA BAR, SHAY [facility]mons, MED When: Comments: Call for any problems. Office to call for follow up appt. Where: [address] [place] [address] [address] [place] [address] Business (1) Medications What How Much When Instructions Next Dose New omeprazole (omeprazole 40 mg Cap-DR) 1 Capsules By Mouth Every day Refills: 1 Pickup at [facility] Unchanged albuterol (Ventolin HFA 90 mcg/ inh Aerosol-Adpt) 1 Puffs Inhalation Once as needed for for wheezing Unchanged buprenorphine-naloxo ne (Suboxone 8 mg-2 mg sublingual film) 1 Each Sublingual Every day Unchanged duloxetine (Cymbalta) By Mouth Unchanged lorazepam (lorazepam 1 mg oral tablet) Unchanged metoprolol (metoprolol succinate 25 mg oral tablet, extended release) 50 Milligram By Mouth Every day Unchanged tamsulosin (Flomax 0.4 mg Cap) 1 Capsules By Mouth Every day Pharmacy Information [facility]: [address] [place], [place] [id number] [phone] What When Comments Stop Taking lisinopril Every day Test Results No qualifying data available. Allergies penicillins (Unknown cause) Problems Ongoing - Any problem that you are currently receiving treatment for. Adenomatous colon polyp Chronic active hepatitis C Compensated HCV cirrhosis Screen for colon cancer Smoker Education Materials Endoscopy Care After Procedure Please read the instructions outlined below and refer to this sheet in the next few weeks. These discharge instructions provide you with general information on caring for yourself after you leave the hospital. Your doctor may also give you specific instructions. While your treatment has been planned according to the most current medical practices available, unavoidable complications occasionally occur. If you have any problems or questions after discharge, please call your doctor. ACTIVITY ? You may resume your regular activity but move at a slower pace for the next 24 hours. ? Take frequent rest periods for the next 24 hours. ? Walking will help expel (get rid of) the air and reduce the bloated feeling in your abdomen. ? No driving for 24 hours (because of the anesthesia (medicine) used during the test). ? You may shower. ? Do not sign any important legal documents or operate any machinery for 24 hours (because of the anesthesia used during the test). NUTRITION ? Drink plenty of fluids. ? You may resume your normal diet. ? Begin with a light meal and progress to your normal diet. ? Avoid alcoholic beverages for 24 hours or as instructed by your caregiver. MEDICATIONS ? You may resume your normal medications unless your caregiver tells you otherwise. WHAT YOU CAN EXPECT TODAY ? You may experience abdominal discomfort such as a feeling of fullness or ?gas? pains. FOLLOW-UP ? Your doctor will discuss the results of your test with you. SEEK IMMEDIATE MEDICAL ATTENTION IF ANY OF THE FOLLOWING OCCUR: ? Excessive nausea (feeling sick to your stomach) and/or vomiting. ? Severe abdominal pain and distention (swelling). ? Trouble swallowing. ? Temperature over 100 F (37.8? C). ? Rectal bleeding or vomiting of blood. Document Released: 02/28/2005 Document Re-Released: 01/08/2007 [employer]Care? Patient Information ?2009 [employer]. Nonsteroidal Anti-Inflammatory Medications (NSAIDS) Non-steroidal anti-inflammator (more content not included)... [facility] Comment on above: Result Comment: Elec tronically Signed By: Mara Lozano RN.marge\Date and Time Signed: 03/01/23 09:34 EDT Endoscopic Procedure Report - Otheron 03-01-2023 Endoscopic Procedure Report - Other Patient: QING CLARK Age: 57 years Sex: Male : 1965 Associated Diagnoses: None Author: Cristo MONROY MD Pre-Procedure Procedure Date 03/01/2023 09:24:00 . Procedure Type: Esophagogastroduoden oscopy. Procedure provider Performed by Cristo Monroy MD. Current history and physical Documented on chart. Informed Consent After discussing the rationale, risks and benefits, and alternatives to this procedure, the patient provided signed consent for the procedure. Pre-procedure diagnosis: Esophageal varices. Medications Anticoagulant/antipl atelet No anticoagulation or antiplatelet. ASA Classification: Class II. . Monitoring: See anesthesia record. . Procedure The procedure was performed in the hospital. See anesthesia record for sedation given during procedure. The patient was positioned starting in the left lateral decubitus position and with safety measures. Endoscope type used was an adult-size, introduced orally, advanced to the 2nd portion of the duodenum. No difficulty was encountered during the procedure. Views were good. Gastric biopsies were taken of the fundus and of the antrum. The patient tolerated the procedure well. Findings 1. Normal esophagus, Z line at 40 cm no esophageal varices, 2. Moderate gastric erosions with speckles of old blood, random biopsies obtained to rule out H. pylori 3. Normal duodenum except for pinpointed nonbleeding duodenal AVM in the second part Images Procedure images: Rec1_hd_video_2022_0 8___58_653.jose elias g Rec1_hd_video_2022_0 8_08__05_536.jose elias g Rec1_hd_video_2022_0 8___12_313.jose elias g Rec_hd_video_2022_0 8_08__20_589.jose elias g Rec1_hd_video_ 8_T08__37_465.jose elias g Rec1_hd_video_2022_0 8_T08__56_727.jose elias g Rec1_hd_video_ 8_T08__52_087.jose elias g . Post-Procedure Complications: none. Estimated blood loss: none. Specimens: sent to pathology. Devices/ implants: none left in place. Impression and Plan 1. Normal esophagus, Z line at 40 cm no esophageal varices, 2. Moderate gastric erosions with speckles of old blood, random biopsies obtained to rule out H. pylori 3. Nonbleeding pinpointed AVMs in the second part of duodenum Recommendations: 1. Awaiting pathology report. 2. GI clinic follow-up in 2 weeks 3. Repeat EGD in 2 years 4. Start omeprazole 40 mg p.o. daily for 8 weeks 5. Avoid alcohol and NSAIDs Normal [facility] Comment on above: Result Comment: Elec tronically Signed By: Cristo MONROY MD\.br\Date and Time Signed: 03/01/23 09:26 EDT Other Comment: Radha corbett Attachment - attachment storage system not supported [id number] Can be viewed in source systemMissing Attachment - attachment storage system not supported [id number] Can be viewed in source systemMissing Attachment - attachment storage system not supported [id number] Can be viewed in source systemMissing Attachment - attachment storage system not supported [id number] Can be viewed in source systemMissing Attachment - attachment storage system not supported [id number] Can be viewed in source systemMissing Attachment - attachment storage system not supported [id number] Can be viewed in source systemMissing Attachment - attachment storage system not supported [id number] Can be viewed in source system Main OR PACU I Recordon Main OR PACU I Record PACU Phase I Document Type FT Summary Primary Physician: Cristo MONROY MD Finalized Date/Time: 03/01/23 09:57:18 Pt. Name: QING CLARK D.O.B./Sex: 1965 Male Med Rec #: [id number] Physician: Cristo MONROY MD Financial #: [id number] Pt. Type: O Room/Bed: Endo 11/28 Admit/Disch: 03/01/23 08:37:00 - 03/01/23 09:57:00 Institution: Case Times PACU I FT Pre-Care Text: Identifies barriers to communication and implements measures to provide psychological support Develops individualized plan of care, and ensures continuity of care Maintains patient's dignity and privacy, and maintains patient confidentiality Identifies and reports philosophical, cultural, and spiritual beliefs and values Identifies individual values and wishes concerning care Implements aseptic technique, and administers prescribed antibiotic therapy and immunizing agents as ordered Evaluates postoperative tissue perfusion Implements thermoregulation measures, and monitors body temperature Evaluates postoperative respiratory status Evaluates postoperative cardiac status Evaluates postoperative neurological status Assesses pain control, collaborated in initiating patient-controlled analgesia and implements alternative methods of pain control Verifies allergies, administers prescribed medications and solutions, evaluates response to medications Entry 1 In PACU I 03/01/23 09:27:00 Discharge from PACU 03/01/23 09:57:00 I Outcomes Met? Yes Last Modified By: Mara Lozano RN 03/01/23 09:57:06 Post-Care Text: The patient demonstrates knowledge of the expected response to the operative or invasive procedure The patient's care is consistent with the individualized perioperative plan of care The patient's right to privacy is maintained The patient's value system, lifestyle, ethnicity, and culture are considered, respected, and incorporated into the perioperative plan of care The patient participates in decisions affecting his or her perioperative plan of care The patient is free from signs and symptoms of infection The patient has wound/tissue perfusion consistent with or improved from baseline levels established preoperatively The patient is at or returning to normothermia at the conclusion of the immediate postoperative period The patient's respiratory function is consistent with or improved from baseline levels established preoperatively The patient's cardiovascular status is consistent with or improved from baseline levels established preoperatively The patient's cardiovascular status is consistent with or improved from baseline levels established preoperatively The patient demonstrates and/or reports adequate pain control throughout the perioperative period The patient received appropriate medication(s), safely administered during the perioperative period Acuity Level PACU I FT Entry 1 Start Time 03/01/23 09:27:00 Stop Time 03/01/23 09:57:00 Acuity Level Acuity Level I Last Modified By: Mara Lozano RN 03/01/23 09:57:15 Finalized By: Mara Lozano RN Document Signatures Signed By: Mara Lozano RN 03/01/23 09:57 Normal [facility] Main OR Preoperative Recordo n 03-01-2023 Main OR Preoperative Record Holding Area Document Type FT Summary Primary Physician: Cristo MONROY MD Finalized Date/Time: 03/01/23 09:12:18 Pt. Name: JUSTINARIELAQING D.O.B./Sex: 1965 Male Med Rec #: [id number] Physician: Cristo MONROY MD Financial #: [id number] Pt. Type: O Room/Bed: Endo 11/28 Admit/Disch: 03/01/23 08:37:00 - Institution: Case Times Holding FT Pre-Care Text: Verifies consent for planned procedure, identifies individual values and wishes concerning care, includes family members in perioperative teaching Secures patient's records' belongings, and valuables, maintains patient's dignity and privacy, and maintains patient confidentiality Entry 1 In Holding 03/01/23 09:00:00 Outcomes Met? Yes Last Modified By: Nilson Roe RN 03/01/23 09:11:09 Post-Care Text: The patient participates in decisions affecting his or her perioperative plan of care The patient's right to privacy is maintained Surgery Checklist FT Entry 1 Patient Birthday, ID Band Procedure History and Physical, Identification: Check, Patient Verification: Surgical Consent, With Participation Patient NPO after Midnight: Yes Results Reviewed n/a Comments: Personal Items: Jewelry Personal Items ring x1 Comment: Limitations: none Complaints of Pain: No Pain Comment: pt denies pain at this Operative Site n/a time Marking: Marked By: n/a Location: n/a Availability Equipment Verified: Does Patient Smoke Yes If Yes to Smoking. vapes daily Cigars or Cigarettes. How much per day? Patient states Yes Comment - Adult - Patricia postop adult Supervision supervision available Case Cancelled in No Holding Area see comments below for reason Last Modified By: Nilson Roe RN 03/01/23 09:12:17 Finalized By: Nilson Roe RN Document Signatures Signed By: Nilson Roe RN 03/01/23 09:12 Normal [facility] Monitor Recordon 03-01-2023 Monitor Record [id number]:127 Normal [facility] Monitor Record [id number]#[id number]:127 Normal [facility] Progress Note-Physicianon Progress Note-Physician Patient: QING CLARK Age: 57 years Sex: Male : 1965 Associated Diagnoses: None Author: Faheem Cherry DO Postoperative Information Postoperative disposition: Postoperative disposition: To PACU. Anesthetic utilized: General. Health Status Allergies: Allergic Reactions (Selected) Severity Not Documented Penicillins- Unknown cause. Current medications: (Selected) Inpatient Medications Ordered Lactated Ringers IV Lisha 1000 mL 1,000 mL: 1,000 mL, IV, 100 mL/hr, Routine, Start date 03/01/23 9:30:00 EDT, 10 hour(s), Total volume (mL): 1,000, 81.1 kg, 2.02, m2 Phenergan 25 mg/mL Injection: 12.5 mg = 0.5 mL, Injection, IV Push, q2min PRN Other (see comment) for 2 dose(s), Stop date Limited # of times, Routine, Start date 03/01/23 9:30:00 EDT, 03/01/23 9:30:00 EDT Sodium Chloride 0.9% IV Lisha 1000 mL 1,000 mL: 1,000 mL, IV, 20 mL/hr, Routine, Start date 03/01/23 6:39:00 EDT, 50 hour(s), Total volume (mL): 1,000 Zofran 4 mg/2 mL Injection: 4 mg = 2 mL, Injection, IV Push, Once PRN Nausea/Vomiting, Routine, Start date 03/01/23 9:30:00 EDT, 03/01/23 9:30:00 EDT Prescriptions Prescribed omeprazole 40 mg Cap-DR: 40 mg = 1 cap(s), Oral, Daily, # 30 cap(s), Refills(s) 1, Pharmacy: [facility], 653, cm, 03/01/23 9:09:00 EDT, Height/Length Dosing, 81.1, kg, 03/01/23 9:09:00 EDT, Weight Dosing Documented Medications Documented Cymbalta: Oral, Refills(s) 0, Depression Flomax 0.4 mg Cap: 0.4 mg = 1 cap(s), Oral, Daily, Refills(s) 0, Bladder problems Suboxone 8 mg-2 mg sublingual film: 1 EA, SubLingual, Daily, Refill(s) 0 Ventolin HFA 90 mcg/inh Aerosol-Adpt: 1 puff(s), Inhalation, Once for wheezing, 18 gram, Refill(s) 0 lorazepam 1 mg oral tablet: Refills(s) 0 metoprolol succinate 25 mg oral tablet, extended release: 50 mg, Oral, Daily, Refills(s) 0, Home Medications (7) Active Cymbalta , Oral Flomax 0.4 mg Cap 0.4 mg = 1 cap(s), Oral, Daily lorazepam 1 mg oral tablet metoprolol succinate 25 mg oral tablet, extended release 50 mg, Oral, Daily omeprazole 40 mg Cap-DR 40 mg = 1 cap(s), Oral, Daily Suboxone 8 mg-2 mg sublingual film 1 EA, SubLingual, Daily Ventolin HFA 90 mcg/inh Aerosol-Adpt 1 puff(s), PRN, Inhalation, Once Problem list: All Problems Adenomatous colon polyp / SNOMED CT 6489154014 / Confirmed Chronic active hepatitis C / SNOMED CT 2045040535 / Confirmed Compensated HCV cirrhosis / SNOMED CT 761297385 / Confirmed Screen for colon cancer / SNOMED CT 269461314 / Confirmed Smoker / IMO [id number] / Confirmed Added secondary to documentation in Social History. Physical Examination Vital Signs 03/01/2023 9:30 EDT Heart Rate Monitored 60 bpm Respiratory Rate Monitored 18 br/min Systolic Blood Pressure 124 mmHg Diastolic Blood Pressure 78 mmHg SpO2 97 % 03/01/2023 9:27 EDT Temperature Temporal Artery 36.4 DegC Heart Rate Monitored 65 bpm Respiratory Rate Monitored 20 br/min Systolic Blood Pressure 124 mmHg Diastolic Blood Pressure 80 mmHg SpO2 97 % 03/01/2023 9:25 EDT Respiratory Rate 15 br/min br/min 03/01/2023 9:23 EDT Systolic Blood Pressure 144 mmHg mmHg Diastolic Blood Pressure 89 mmHg mmHg 03/01/2023 9:20 EDT Heart Rate Monitored 61 bpm bpm Respiratory Rate 14 br/min br/min SpO2 98 % % 03/01/2023 9:19 EDT Systolic Blood Pressure 169 mmHg mmHg Diastolic Blood Pressure 93 mmHg mmHg 03/01/2023 9:09 EDT Temperature Temporal Artery 36.9 DegC Heart Rate Monitored 61 bpm Respiratory Rate Monitored 14 br/min Systolic Blood Pressure 144 mmHg HI Diastolic Blood Pressure 87 mmHg Blood Pressure Location Left arm SpO2 95 % Pain Assessment: Pain Assessment 03/01/2023 9:27 EDT Pain Symptoms Self Report No, able to self report . Assessment Anesthetic outcome No anesthetic complications noted. Adequate pain relief. Review / Management Condition Plan Transfer/Discharge: Patient exhibiting no signs of N/V. Hydration status is adequate. Normal [facility] Comment on above: Result Comment: Elec tronically Signed By: Faheem Cherry DO\.br\Date and Time Signed: 03/01/23 09:37 EDT Progress Note-Physician Patient: QING CLARK Age: 57 years Sex: Male : 1965 Associated Diagnoses: None Author: Faheem Cherry DO Preoperative Information Anesthesia history: Patient history: None. Family history+: None. Anesthesia results Informed consent: Signed by patient. Including risks, benefits, and alternatives related to the: Anesthetic plan, Postoperative pain management plan. Re-evaluation prior to induction: Faheem Cherry DO. Health Status Allergies: Allergic Reactions (Selected) Severity Not Documented Penicillins- Unknown cause., Allergies (1) Active Reaction penicillins Unknown cause Current medications: (Selected) Inpatient Medications Ordered Sodium Chloride 0.9% IV Lisha 1000 mL 1,000 mL: 1,000 mL, IV, 20 mL/hr, Routine, Start date 03/01/23 6:39:00 EDT, 50 hour(s), Total volume (mL): 1,000 Documented Medications Documented Cymbalta: Oral, Refills(s) 0, Depression Flomax 0.4 mg Cap: 0.4 mg = 1 cap(s), Oral, Daily, Refills(s) 0, Bladder problems Suboxone 8 mg-2 mg sublingual film: 1 EA, SubLingual, Daily, Refill(s) 0 Ventolin HFA 90 mcg/inh Aerosol-Adpt: 1 puff(s), Inhalation, Once for wheezing, 18 gram, Refill(s) 0 lorazepam 1 mg oral tablet: Refills(s) 0 metoprolol succinate 25 mg oral tablet, extended release: 50 mg, Oral, Daily, Refills(s) 0, Home Medications (6) Active Cymbalta , Oral Flomax 0.4 mg Cap 0.4 mg = 1 cap(s), Oral, Daily lorazepam 1 mg oral tablet metoprolol succinate 25 mg oral tablet, extended release 50 mg, Oral, Daily Suboxone 8 mg-2 mg sublingual film 1 EA, SubLingual, Daily Ventolin HFA 90 mcg/inh Aerosol-Adpt 1 puff(s), PRN, Inhalation, Once , Medications (1) Active Scheduled: (0) Continuous: (1) Sodium Chloride 0.9% 1,000 mL 1,000 mL, IV, 20 mL/hr PRN: (0) Problem list: All Problems Adenomatous colon polyp / SNOMED CT 8777269869 / Confirmed Chronic active hepatitis C / SNOMED CT 4333417901 / Confirmed Compensated HCV cirrhosis / SNOMED CT 027009977 / Confirmed Screen for colon cancer / SNOMED CT 101938093 / Confirmed Smoker / IMO [id number] / Confirmed Added secondary to documentation in Social History., Active Problems (5) Adenomatous colon polyp Chronic active hepatitis C Compensated HCV cirrhosis Screen for colon cancer Smoker Histories Past Medical History: No active or resolved past medical history items have been selected or recorded. Family History: Entire family history is negative. Procedure history: Colonoscopy ([id number]) on 08/08/2022 at 57 Years. Comments: 08/08/2022 14:25 DARRIUS Portillo RN, Ekaterina marinelli 5 mm polyp, diverticulosis, IH Social History Social & Psychosocial Habits Alcohol 05/22/2017 Risk Assessment: Denies Alcohol Use Substance Abuse 05/22/2017 Risk Assessment: Denies Substance Abuse Tobacco 05/22/2017 Risk Assessment: High Risk 05/22/2017 Tobacco Use: Current Every Day Smoker Type: Cigarettes 12/29/2022 Tobacco Use: Former smoker, quit more . Physical Examination Vital Signs 03/01/2023 9:09 EDT Temperature Temporal Artery 36.9 DegC Heart Rate Monitored 61 bpm Respiratory Rate Monitored 14 br/min Systolic Blood Pressure 144 mmHg HI Diastolic Blood Pressure 87 mmHg Blood Pressure Location Left arm SpO2 95 % Vital Signs (last 24 hrs) Last Charted Resp Rate 14 br/min (MAR 01 09:09) SBP H 144mmHg (MAR 01 09:09) DBP 87 mmHg (MAR 01 09:09) SpO2 95 % (MAR 01 09:09) Weight 81.1 kg (MAR 01 09:07) BMI 24.76 (MAR 01 09:07) Measurements from flowsheet : Measurements 03/01/2023 9:07 EDT Height/Length Measured 181 cm Height/Length Dosing 181.0 cm Weight Dosing 81.1 kg BSA Measured 2.02 m2 Body Mass Index Measured 24.76 kg/m2 Weight Measured 81.1 kg Airway: Mallampati classification: II (soft palate, fauces, uvula visible). Distance: Mentohyoid, Interincisive, Thyromental, Mentosternal, Adequate, Poor Dentition. HENT: Normocephalic. Respiratory: Lungs are clear to auscultation. Cardiovascular: Regular rhythm. Gastrointestinal: Soft. Review / Management Results review Plan [place] [employer] (ASA) physical status classification: Class III. Anesthetic Preoperative Plan: Anesthesia General. Normal [facility] Comment on above: Result Comment: Elec tronically Signed By: Faheem Cherry DO\.br\Date and Time Signed: 03/01/23 09:16 EDT CHEMISTRYOrdered By: SYSTEM SYSTEM on 02-07-2023 Albumin [Mass/Vol] 4.3 g/dL Normal 3.3 - 5.0 gm/dL [facility] Albumin/Globulin [Mass ratio] 1.1 {ratio} Normal 1.1 - 2.2 [facility] ALP [Catalytic activity/Vol] 95 [iU]/d Normal 21 - 98 Int._Unit/L [facility] ALT No additional P-5'-P [Catalytic activity/Vol] 32 [iU]/d Normal 6 - 46 Int._Unit/L [facility] Anion gap [Moles/Vol] 13 mmol/L Normal 6 - 16 mEq/L [facility] AST [Catalytic activity/Vol] 45 [iU]/d High 5 - 43 Int._Unit/L [facility] Bilirubin [Mass/Vol] 0.9 mg/dL Normal 0.0 - 1 .1 mg/dL [facility] Calcium [Mass/Vol] 9.5 mg/dL Normal 8.9 - 11. 1 mg/dL [facility] Chloride [Moles/Vol] 101 mmol/L Normal 101 - 1 11 mmol/L [facility] CO2 [Moles/Vol] 28 mmol/L Normal 21 - 31 mmol/L [facility] Creatinine [Mass/Vol] 0.8 mg/dL Normal 0.5 - 1.3 mg/dL [facility] GFR/1.73 sq M.predicted among non-blacks MDRD (S/P/Bld) [Vol rate/Area] 105 mL/min/1.73 m2 Normal >=59mL/min/1.7 3 m2 [facility] Chem S Globulin (S) [Mass/Vol] 3.8 g/dL Normal 1.4 - 4.0 gm/dL [facility] Glucose [Mass/Vol] 105 mg/dL Normal 55 - 199 mg/dL [facility] Potassium [Moles/Vol] 4.3 mmol/L Normal 3.5 - 5.3 mmol/L [facility] Protein [Mass/Vol] 8.1 g/dL High 6.0 - 7.8 gm/dL [facility] Sodium [Moles/Vol] 138 mmol/L Normal 135 - 145 mmol/L [facility] Urea nitrogen [Mass/Vol] 9 mg/dL Normal 5 - 21 mg/dL [facility] Urea nitrogen/Creatinine [Mass ratio] 11 mg/mg Normal 10 - 20 [facility] COAGULATIONOrdered By: Twila Case on 02-07-2023 INR Coag (PPP) [Relative time] 1.1 {INR} Invalid Interpretation Code [facility] Coag PT Coag (PPP) [Time] 12.4 s Normal 9.4 - 1 2.5 second(s) [facility] Coag HEMATOLOGYOrdered By: Slade Briseno on 02-07-2023 Erythrocyte distribution width (RBC) [Ratio] 14.1 % Normal 10.9 - 14.2 % [facility] Hematocrit (Bld) [Volume fraction] 45.0 % Normal 37.7 - 49.0 % [facility] Hemoglobin (Bld) [Mass/Vol] 15.5 g/dL Normal 13.5 - 17.5 gm/dL [facility] MCH (RBC) [Entitic mass] 30.3 pg Normal 27.0 - 34.0 pg [facility] MCHC (RBC) [Mass/Vol] 34.5 g/dL Normal 31.4 - 36.0 gm/dL [facility] MCV (RBC) [Entitic vol] 87.8 fL Normal 80.0 - 100.0 fL [facility] Platelet mean volume (Bld) [Entitic vol] 10.7 fL Normal 6.4 - 10.8 fL [facility] Platelets (Bld) [#/Vol] 226.0 E9/L Normal 150.0 - 500.0 E9/L [facility] RBC (Bld) [#/Vol] 5.1 E12/L Normal 4.3 - 5.9 E12/L [facility] WBC corrected for nucl RBC Auto (Bld) [#/Vol] 11.7 E9/L High 4.0 - 11.0 E9/L [facility] HELICOBACTER PYLORI AG STOOL on 09-18-2020 H. pylori Stool Ag, EIA Negative Normal Negative [facility] Comment on above: Performed By: #### H PYLORI #### [facility] [address] [place], [place] [id number] Siri Murdock HEPATITIS PANEL, ACUTEon HBsAg Screen Negative Normal Negative [facility] Comment on above: Performed By: #### H EPACUT #### [facility] [address] [id number] Siri Murdock Hep A Ab, IgM Negative Normal Negative [facility] Comment on above: Performed By: #### H EPACUT #### [facility] [address] [id number] Siri Murdock Hep B Core Ab, IgM Negative Normal Negative [facility] Comment on above: Performed By: #### H EPACUT #### [facility] [address] [id number] Siri Collette Hep C Virus Ab >11.0 Critically high 0.0-0.9 [facility] Comment on above: Result Comment: Nega tive: < 0.8 Indeterminate: 0.8 - 0.9 Positive: > 0.9 . The CDC recommends that a positive HCV antibody result be followed up with a HCV Nucleic Acid Amplification test (170148). Performed By: #### H EPACUT #### [facility] [address] [place], [place] [phone] Siri Collette CULTURE STOOLon 09-13-2020 CULTURE STOOL Culture Observations: No growth of Salmonella,Shigella, Yerisinia at 72 hours. Culture Observations: No growth of Campylobacter,E.coli 0157 or Staphylococcus at 72 hours. Normal [facility] Comment on above: Performed By: #### S TOOLCX #### [facility] [address] [place] [address] Siri Collette OCC BLD IMMUNOASSAYon 2020 OCCULT BLOOD Negative Normal NEGATIVE [facility] Comment on above: Performed By: #### O GA ####[facility] [id number] [id number] Collette CBC AUTO DIFFon 09-11-2020 BASO # 0.1 103/ul Normal 0.0-0.1 [facility] Comment on above: Performed By: #### C BC #### [facility] [address] [place], [place] [id number] Siri Collette Basophils/100 WBC (Bld) 0.8 % Normal 0.2-2.0 [facility] Comment on above: Performed By: #### C BC #### [facility] [address] [place] [address] Siri Collette EO # 0.3 103/ul Normal 0.0-0.7 [facility] Comment on above: Performed By: #### C BC #### [facility] [address] [place], [place] [id number] Siri Collette Eosinophils/100 WBC (Bld) 2.8 % Normal 0.9-7.0 [facility] Comment on above: Performed By: #### C BC #### [facility] [address] [place], [place] [id number] Siri Collette Erythrocyte distribution width (RBC) [Ratio] 14.4 % Normal 11.0-15.0 [facility] Comment on above: Performed By: #### C BC #### [facility] [address] [place] [address] Siri Collette Hematocrit (Bld) [Volume fraction] 43.3 % Normal 42.0-54.0 [facility] Comment on above: Performed By: #### C BC #### [facility] [address] [place] [address] Siri Collette Hemoglobin (Bld) [Mass/Vol] 14.6 g/dL Normal 14.0-18.0 [facility] Comment on above: Performed By: #### C BC #### [facility] [address] [place] [address] Siri Collette IG # 0.03 10e3/ul Normal 0.00-0.03 [facility] Comment on above: Performed By: #### C BC #### [facility] [address] [place] [address] Siri Collette IG % 0.3 % Normal 0.0-0.5 [facility] Comment on above: Performed By: #### C BC #### [facility] [address] [place] [address] Siri Collette LYMPH # 4.5 103/ul Critically high 1.2-3.8 [facility] Comment on above: Performed By: #### C BC #### [facility] [address] [place] [address] Siri Collette Lymphocytes/100 WBC (Bld) 46.3 % Normal 20.5-60.0 [facility] Comment on above: Performed By: #### C BC #### [facility] [address] [place], [place] [id number] Siri Collette MANUAL DIFF REQ NO Normal [facility] Comment on above: Performed By: #### C BC #### [facility] [address] [place] [address] Siri Collette MCH (RBC) [Entitic mass] 31.1 pg Normal 25.9-34.0 [facility] Comment on above: Performed By: #### C BC #### [facility] [address] [place], [place] [phone] Siri Murdock MCHC (RBC) [Mass/Vol] 33.7 g/dL Normal 29.9-35.2 [facility] Comment on above: Performed By: #### C BC #### [facility] [address] [place], [place] [phone] Siri Murdock MCV (RBC) [Entitic vol] 92.1 fL Normal 80.0-94.0 [facility] Comment on above: Performed By: #### C BC #### [facility] [address] [place] [address] Siri Murdock MONO # 1.2 103/ul Critically high 0.3-0.8 [facility] Comment on above: Performed By: #### C BC #### [facility] [address] [place] [address] Siri Murdock Monocytes/100 WBC (Bld) 12.6 % Critically high 1.7-12.0 [facility] Comment on above: Performed By: #### C BC #### [facility] [address] [place] [address] Siri Murdock NEUT # 3.6 103/ul Normal 1.4-6.5 [facility] Comment on above: Performed By: #### C BC #### [facility] [address] [place], [place] [phone] Siri Murdock Neutrophils/100 WBC (Bld) 37.2 % Critically low 43.0-75.0 [facility] Comment on above: Performed By: #### C BC #### [facility] [address] [address] [place], [place] [id number] Siribrendan Murdock Platelet mean volume (Bld) [Entitic vol] 11.1 fL Normal 9.5-13.5 [facility] Comment on above: Performed By: #### C BC #### [facility] [address] [place], [place] [phone] Siri Collette PLT 222 103/ul Normal 150-450 [facility] Comment on above: Performed By: #### C BC #### [facility] [address] [place], [place] [phone] Siri Murdock RBC 4.70 106/ul Normal 4.70-6.10 [facility] Comment on above: Performed By: #### C BC #### [facility] [address] [place], [place] [phone] Siri Murdock WBC 9.8 103/ul Normal 4.0-11.0 [facility] Comment on above: Performed By: #### C BC #### [facility] [address] [place], [place] [phone] Siri Murdock FERRITINon 09-11-2020 Ferritin [Mass/Vol] 313.0 ng/mL Normal 17.9-464.0 [facility] Comment on above: Performed By: #### F ERR, FETIBC #### [facility] [address] [place] [address] Siri Murdock IRON AND TIBCon 09-11-2020 % SATURATION 34.5 % Normal [facility] Comment on above: Performed By: #### F ERR, FETIBC #### [facility] [address] [place], [place] [phone] Siri Murdock Iron [Mass/Vol] 88.0 ug/dL Normal 49.0-181.0 [facility] Comment on above: Performed By: #### F ERR, FETIBC #### [facility] [address] [place] [address] Siri Murdock TIBC DIRECT 255.0 ug/dL Critically low 261.0-497.0 [facility] Comment on above: Performed By: #### F ERR, FETIBC #### [facility] [address] [place], [place] [phone] Siri Murdock PROF 14(COMP METB)on 021 Albumin [Mass/Vol] 3.8 g/dL Normal 3.5-5.0 [facility] Comment on above: Performed By: #### C MP #### [facility] [address] [place], [place] [phone] Siri Collette Albumin/Globulin [Mass ratio] 1.0 {ratio} Normal [facility] Comment on above: Performed By: #### C MP #### [facility] [address] [place], [place] [phone] Siri Collette ALP [Catalytic activity/Vol] 78 U/L Normal 38-126 [facility] Comment on above: Performed By: #### C MP #### [facility] [address] [phone] Siri Collette ALT [Catalytic activity/Vol] 80 U/L Critically high 21-72 [facility] Comment on above: Performed By: #### C MP #### [facility] [address] [place], [place] [phone] Siri Collette Anion gap [Moles/Vol] 12.1 mmol/L Normal [facility] Comment on above: Performed By: #### C MP #### [facility] [address] [place] [address] Siri Collette AST [Catalytic activity/Vol] 58 U/L Normal 17-59 [facility] Comment on above: Performed By: #### C MP #### [facility] [address] [place], [place] [phone] Siri Collette Bilirubin [Mass/Vol] 0.6 mg/dL Normal 0.2-1.3 [facility] Comment on above: Performed By: #### C MP #### [facility] [address] [place], [place] [phone] Siri Collette Calcium [Mass/Vol] 8.8 mg/dL Normal 8.4-10.2 [facility] Comment on above: Performed By: #### C MP #### [facility] [address] [place], [place] [phone] Siri Collette Chloride [Moles/Vol] 103 mmol/L Normal 98-107 [facility] Comment on above: Performed By: #### C MP #### [facility] [address] [place], [place] [phone] Siri Collette CO2 [Moles/Vol] 29.9 mmol/L Normal 22.0-30.0 [facility] Comment on above: Performed By: #### C MP #### [facility] [address] [phone] Siri Collette Creatinine [Mass/Vol] 0.61 mg/dL Critically low 0.66-1.25 [facility] Comment on above: Performed By: #### C MP #### [facility] [address] [phone] Siri Collette EGFR-AF IVORIAN >60 Normal >=60 [facility] Comment on above: Performed By: #### C MP #### [facility] [address] [phone] Siri Collette EGFR-NON AF IVORIAN >60 Normal >=60 [facility] Comment on above: Performed By: #### C MP #### [facility] [address] [place] [address] Siri Collette Globulin (S) [Mass/Vol] 3.7 g/dL Normal [facility] Comment on above: Performed By: #### C MP #### [facility] [address] [place] [address] Siri Collette Glucose [Mass/Vol] 113 mg/dL Critically high 74-106 T [facility] Comment on above: Performed By: #### C MP #### [facility] [address] [place] [address] Siri Collette Potassium [Moles/Vol] 4.0 mmol/L Normal 3.4-5.0 [facility] Comment on above: Performed By: #### C MP #### [facility] [address] [place] [address] Siri Collette Protein [Mass/Vol] 7.5 g/dL Normal 6.1-8.2 [facility] Comment on above: Performed By: #### C MP #### [facility] [address] [place], [place] [phone] Siri Collette Sodium [Moles/Vol] 141 mmol/L Normal 137-145 [facility] Comment on above: Performed By: #### C MP #### [facility] [address] [place] [address] Siri Murdock Urea nitrogen [Mass/Vol] 9.0 mg/dL Normal 9.0-20.0 [facility] Comment on above: Performed By: #### C MP #### [facility] [address] [place] [address] Siri Murdock Urea nitrogen/Creatinine [Mass ratio] 14.8 mg/mg Normal [facility] Comment on above: Performed By: #### C MP #### [facility] [address] [place] [address] Siri Collette COVID-19 PCRon 06-16-2020 SARS-CoV-2 (COVID-19) RNA VANESSA+probe Ql (Unsp spec) Not detected Normal Not Detected [facility] Comment on above: Result Comment: This nucleic acid amplification test was developed and its performance characteristics determined by [facility]. Nucleic acid amplification tests include PCR and TMA. This test has not been FDA cleared or approved. This test has been authorized by FDA under an Emergency Use Authorization (EUA). This test is only authorized for the duration of time the declaration that circumstances exist justifying the authorization of the emergency use of in vitro diagnostic tests for detection of SARS-CoV-2 virus and/or diagnosis of COVID-19 infection under section 564(b)(1) of the Act, 21 U.S.C. 360bbb-3(b) (1), unless the authorization is terminated or revoked sooner. When diagnostic testing is negative, the possibility of a false negative result should be considered in the context of a patient's recent exposures and the presence of clinical signs and symptoms consistent with COVID-19. An individual without symptoms of COVID-19 and who is not shedding SARS-CoV-2 virus would expect to have a negative (not detected) result in this assay. Performed By: #### C VDPCR #### [facility] [address] [place] [address] Siri Murdock XR CHEST 2 Von 06-11-2020 XR CHEST 2 V EXAM: XR CHEST 2 V HISTORY: Acute upper respiratory infection COMPARISON: 12/28/2015 TECHNIQUE: 2 views chest FINDINGS: There are low lung volumes with mild bibasilar atelectasis. No consolidation, pleural effusion, or pneumothorax. Pulmonary vasculature is normal. Heart size within normal limits. IMPRESSION: 1. Mild bibasilar atelectasis. Electronically authenticated by: CRISTY COBB Date: 2020-06-11 15:08 Normal [facility] Vital Signs Date Time Vital Sign Value Performing Clinician Facility 08-09-2023 12:56-0500 Body height 180.3 cm Maria E Graham APRN-MANAGED CARE ANALYST Work Phone: [facility] 08-09-2023 12:56-0500 Body mass index (BMI) [Ratio] 26.29 kg/m2 Maria E Graham LEAD DEVELOPER-MANAGED CARE ANALYST Work Phone: [facility] 08-09-2023 12:56-0500 Body temperature 97.81 [degF] Maria E Graham LEAD DEVELOPER-MANAGED CARE ANALYST Work Phone: [facility] 08-09-2023 12:56-0500 Body weight 85.5 kg Maria E Graham LEAD DEVELOPER-MANAGED CARE ANALYST Work Phone: [facility] 08-09-2023 12:56-0500 Diastolic blood pressure 78 mm[Hg] Maria E Graham LEAD DEVELOPER-MANAGED CARE ANALYST Work Phone: [facility] 08-09-2023 12:56-0500 Heart rate 84 /min Maria E Graham LEAD DEVELOPER-MANAGED CARE ANALYST Work Phone: [facility] 08-09-2023 12:56-0500 SaO2% (BldA) [Mass fraction] 93 % Maria E Graham LEAD DEVELOPER-MANAGED CARE ANALYST Work Phone: [facility] 08-09-2023 12:56-0500 Systolic blood pressure 120 mm[Hg] Maria E Graham LEAD DEVELOPER-MANAGED CARE ANALYST Work Phone: [facility] 04-13-2023 10:39-0400 Blood Pressure Location Yvette Andreea [facility] 04-13-2023 10:39-0400 Body temperature 96.8 [degF] Yvette Andreea [facility] 04-13-2023 10:39-0400 Diastolic blood pressure 85 mm[Hg] Yvette Hestermetz [facility] 04-13-2023 10:39-0400 Heart rate 63 /min Yvetteradha HesterAndreea [facility] 04-13-2023 10:39-0400 Systolic blood pressure 134 mm[Hg] Yvetteradha HesterAndreea [facility] 03-01-2023 09:52-0400 Diastolic blood pressure 85 mm[Hg] [facility]ons [facility] 03-01-2023 09:52-0400 Heart rate 50 /min [facility] 03-01-2023 09:52-0400 Respiratory rate 13 /min [facility] 03-01-2023 09:52-0400 SaO2% (BldA) [Mass fraction] 97 % [facility] 03-01-2023 09:52-0400 Systolic blood pressure 146 mm[Hg] [facility] 03-01-2023 09:40-0400 Diastolic blood pressure 80 mm[Hg] [facility] 03-01-2023 09:40-0400 Heart rate 64 /min [facility] 03-01-2023 09:40-0400 Respiratory rate 14 /min [facility] 03-01-2023 09:40-0400 SaO2% (BldA) [Mass fraction] 96 % [facility] 03-01-2023 09:40-0400 Systolic blood pressure 134 mm[Hg] [facility] 03-01-2023 09:35-0400 Diastolic blood pressure 78 mm[Hg] [facility] 03-01-2023 09:35-0400 Heart rate 55 /min [facility] 03-01-2023 09:35-0400 Respiratory rate 18 /min [facility] 03-01-2023 09:35-0400 SaO2% (BldA) [Mass fraction] 96 % [facility] 03-01-2023 09:35-0400 Systolic blood pressure 131 mm[Hg] [facility] 03-01-2023 09:27-0400 Body temperature 97.52 [degF] [facility] 03-01-2023 09:25-0400 Respiratory rate 15 /min [facility] 03-01-2023 09:20-0400 Respiratory rate 14 /min [facility] 03-01-2023 09:09-0400 Blood Pressure Location [facility] 03-01-2023 09:09-0400 Body temperature 98.42 [degF] [facility] 12-29-2022 13:30-0400 Blood Pressure Location Lemons SALAM [facility] 12-29-2022 13:30-0400 Diastolic blood pressure 88 mm[Hg] Lemons SALAM [facility] 12-29-2022 13:30-0400 Heart rate 81 /min Lemons [facility] 12-29-2022 13:30-0400 Respiratory rate 16 /min Lemons [facility] 12-29-2022 13:30-0400 Systolic blood pressure 136 mm[Hg] Lemons [facility] 08-10-2022 11:00-0500 Blood Pressure Location [facility] 08-10-2022 11:00-0500 Body temperature 97.88 [degF] [facility] 08-10-2022 11:00-0500 Diastolic blood pressure 96 mm[Hg] [facility] 08-10-2022 11:00-0500 Heart rate 57 /min [facility] 08-10-2022 11:00-0500 Respiratory rate 19 /min [facility] 08-10-2022 11:00-0500 SaO2% (BldA) [Mass fraction] 100 % [facility] 08-10-2022 11:00-0500 Systolic blood pressure 168 mm[Hg] [facility] 08-08-2022 13:10-0500 Diastolic blood pressure 83 mm[Hg] [facility] 08-08-2022 13:10-0500 Heart rate 48 /min [facility] 08-08-2022 13:10-0500 Mean blood pressure 107 mm[Hg] [facility] 08-08-2022 13:10-0500 Respiratory rate 18 /min [facility] 08-08-2022 13:10-0500 SaO2% (BldA) [Mass fraction] 98 % [facility] 08-08-2022 13:10-0500 Systolic blood pressure 156 mm[Hg] [facility] 08-08-2022 12:55-0500 Diastolic blood pressure 82 mm[Hg] [facility] 08-08-2022 12:55-0500 Heart rate 61 /min [facility] 08-08-2022 12:55-0500 Mean blood pressure 107 mm[Hg] [facility] 08-08-2022 12:55-0500 Respiratory rate 20 /min [facility] 08-08-2022 12:55-0500 SaO2% (BldA) [Mass fraction] 96 % [facility] 08-08-2022 12:55-0500 Systolic blood pressure 158 mm[Hg] [facility] 08-08-2022 12:50-0500 Diastolic blood pressure 116 mm[Hg] [facility] 08-08-2022 12:50-0500 Heart rate 63 /min [facility] 08-08-2022 12:50-0500 Mean blood pressure 123 mm[Hg] [facility] 08-08-2022 12:50-0500 Respiratory rate 21 /min [facility] 08-08-2022 12:50-0500 SaO2% (BldA) [Mass fraction] 96 % [facility] 08-08-2022 12:50-0500 Systolic blood pressure 138 mm[Hg] [facility] 08-08-2022 12:45-0500 Body temperature 97.7 [degF] [facility] 08-08-2022 12:40-0500 Respiratory rate 1 /min [facility] 08-08-2022 12:27-0500 Respiratory rate 20 /min [facility] 08-08-2022 12:21-0500 Blood Pressure Location [facility] 08-08-2022 12:21-0500 Body temperature 98.24 [degF] [facility] 06-29-2022 10:28-0500 Blood Pressure Location Lemons SALAM [facility] 06-29-2022 10:28-0500 Diastolic blood pressure 89 mm[Hg] Lemons SALAM [facility] 06-29-2022 10:28-0500 Heart rate 52 /min Lemons SAL[facility] 06-29-2022 10:28-0500 Respiratory rate 14 /min Cristo MONROY [facility] 06-29-2022 10:28-0500 Systolic blood pressure 159 mm[Hg] Cristo MONROY [facility] Encounters Encounter Date Encounter Type Care Provider Facility Start: 02-08-2024 End: 02-08-2024 ambulatory Roxie Wang Facility:[facility] Start: 11-17-2023 End: 11-18-2023 ambulatory [facility] Start: 11-09-2023 End: 11-10-2023 ambulatory [facility] Start: 11-09-2023 End: 11-09-2023 Emergency department patient visit [facility] Start: 11-09-2023 End: 11-09-2023 ambulatory [facility] Start: 10-18-2023 Refill Maria E J Cast illo LEAD DEVELOPER-MANAGED CARE ANALYST Work Phone: [facility] Comment on above: Narcotic drug use; Generalized anxiety disorder with panic attacks; PTSD (post-traumatic stress disorder) Start: 10-02-2023 Refill Maria E Mary Cast illo LEAD DEVELOPER-MANAGED CARE ANALYST Work Phone: [facility] Comment on above: COPD mixed type ([facility]) Start: 08-28-2023 Orders Only Maria E J Cast illo LEAD DEVELOPER-MANAGED CARE ANALYST Work Phone: [facility] Start: 08-21-2023 Refill Maria E J Cast illo LEAD DEVELOPER-MANAGED CARE ANALYST Work Phone: [facility] Comment on above: Narcotic drug use; Generalized anxiety disorder with panic attacks; PTSD (post-traumatic stress disorder) Start: 08-09-2023 End: 08-10-2023 ambulatory [facility] Start: 08-09-2023 [facility]counter [facility] l [facility] medical [facility] Start: 08-09-2023 End: 08-09-[address] [facility] Start: 08-09-2023 Encounter for genera l adult medical examination without abnormal findings [facility] Start: 08-09-2023 End: 08-09-2023 Patient encounter procedure Maria E Graham LEAD DEVELOPER-MANAGED CARE ANALYST Work Phone: [facility] Start: 08-09-2023 End: 08-09-2023 Periodic preventive med est patient 40-64yrs Maria E Graham LEAD DEVELOPER-MANAGED CARE ANALYST Work Phone: [facility] Comment on above: Annual physical exam (Primary Dx); Encounter for screening for malignant neoplasm of prostate; Blood tests for routine general physical examination; Vitamin D deficiency; Benign prostatic hyperplasia with weak urinary stream; Generalized anxiety disorder with panic attacks; Current moderate episode of major depressive disorder without prior episode ([facility] Start: 08-09-2023 End: 08-09-2023 Physical examination Maria E Graham LEAD DEVELOPER-MANAGED CARE ANALYST Work Phone: [facility] Start: 07-24-2023 Refill Maria E jose LEAD DEVELOPER-MANAGED CARE ANALYST [facility] Comment on above: Narcotic drug use; Generalized anxiety disorder with panic attacks; PTSD (post-traumatic stress disorder) Start: 04-13-2023 End: 04-13-2023 ambulatory [facility] Facility:[facility] Start: 04-13-2023 End: 04-13-2023 Patient encounter procedure Yvette Doran [facility] Start: 04-06-2023 End: 04-06-2023 ambulatory [facility] Facility:[place] Start: 04-06-2023 End: 04-06-2023 Patient encounter procedure [facility] Start: 03-01-2023 End: 03-01-2023 [facility]:[place] Start: 03-01-2023 End: 03-01-2023 Patient encounter procedure [facility] Start: 02-07-2023 End: 02-07-2023 Patient encounter procedure [facility] Start: 01-23-2023 End: 01-23-2023 Patient encounter procedure [facility] Start: 12-29-2022 End: 12-29-2022 Patient encounter procedure Lemons SALAM [facility] Start: 10-05-2022 End: 10-05-2022 Patient encounter procedure Lemons SALAM [facility] Start: 08-10-2022 End: 08-10-2022 Patient encounter procedure [facility] Start: 08-08-2022 End: 08-08-2022 Patient encounter procedure [facility] Start: 07-13-2022 End: 07-13-2022 Patient encounter procedure [facility] Start: 06-29-2022 End: 06-29-2022 Patient encounter procedure Lemons SALAM [facility] Start: 12-25-2020 End: 12-25-2020 ambulatory MARIA E GRAHAM Facility:[facility] Start: 09-13-2020 End: 09-13-2020 ambulatory MARIA E GRAHAM Facility:[facility] Start: 09-11-2020 End: 09-12-2020 ambulatory MARIA E GRAHAM Facility:[facility] Start: 06-11-2020 End: 06-12-2020 ambulatory MARIA E GRAHAM Facility:[facility] Procedures Date Procedure Procedure Detail Performing Clinician Start: 08-09-2023 Adult depression screening assessment Maria E Graham LEAD DEVELOPER-MANAGED CARE ANALYST Work Phone: Start: 05-18-2023 Adult depression screening assessment Maria E Graham LEAD DEVELOPER-MANAGED CARE ANALYST Work Phone: Start: 03-01-2023 Esophagogastroduodenoscopy [facility] Start: 08-08-2022 Colonoscopy [facility] Comment on above: one 5 mm polyp, diverticulosis, IH Plan of Treatment Date Care Activity Detail Author Start: 08-09-2024 Adult BMI Follow Up Plan Adult BMI Follow Up Plan [facility] Start: 08-09-2024 Adult BMI Screening Adult BMI Screen ing [facility] Start: 08-09-2024 Depression Screening Depression Scre ening [facility] Start: 08-09-2024 Tobacco Screening Tobacco Screening [facility] Start: 05-18-2024 Adult BMI Screening Adult BMI Screen ing [facility] Start: 05-18-2024 Depression Screening Depression Scre ening [facility] Start: 05-18-2024 Tobacco Screening Tobacco Screening [facility] Start: 02-02-2024 Adult BMI Follow Up Plan Adult BMI Follow Up Plan [facility] Start: 11-09-2023 End: 11-09-2023 Patient encounter procedure 11/09/2023 1:30 PM EDT [facility] [address] [place] [address] Maria E Graham, LEAD DEVELOPER-MANAGED CARE ANALYST [address] [place] [address] [facility] Start: 08-09-2023 End: 08-09-2023 Patient encounter procedure 08/09/2023 1:00 PM EST Office Visit [facility] [address] [place] [address] Maria E Graham, LEAD DEVELOPER-MANAGED CARE ANALYST [address] [place] [address] [facility] Start: 03-31-2023 COVID-19 Vaccine ( season) COVID-19 Vaccine ( season) [facility] Start: 03-31-2023 Influenza vaccination Influenza Vacc ine [facility] Start: 2017 Administration of varicella zoster vaccine Zoster (Shingles) Vaccine (1 of 2) [facility] Start: 2012 Screening for malign ant neoplasm of colon Colonoscopy [facility] Start: 1986 DTaP,Tdap and Td Vac cines (1 - Tdap) DTaP,Tdap and Td Vaccines (1 - Tdap) [facility] End: 08-09-2024 Hemoglobin A1c/Hemoglobin.total in Blood Hemoglobin A1c Lab Routine Blood tests for routine general physical examination 1 Occurrences starting 08/09/2023 until 08/09/2024 [facility] Work Phone: Comment on above: 1 Occurrences starti ng 08/09/2023 until 08/09/2024 Hemoglobin A1c/Hemoglobin.total in Blood Hemoglobin A1c Lab Routine Blood tests for routine general physical examination 08/09/2023 9:48 PM EST [facility] Immunizations Immunization Date Immunization Notes Care Provider Fa cilivalentine 08-15-2021 SARS-CoV-2 (COVID-19 ) mRNA BNT-162b2 balwinder MONROY [facility] 07-17-2021 SARS-CoV-2 (COVID-19 ) mRNA BNT-162b2 vax Cristo MONROY [facility] NEGATED: Highlighted row has not occurred!04-13-2023 influenza virus vaccine, unspecified formulation Yvette Doran [facility] Payers Date Payer Category Payer Medicaid [place] [employer] [employer] [id number] 2003-Present [phone] [address] [place] [address] [id number] 1965 Unknown [id number] [id number] 1965 Unknown [id number] 2.16.840.1.094773.3.579.2.593 1967 Unknown [id number] 2.16.840.1.748574.3.579.2.593 1967 Unknown [id number] 2.16.840.1.533132.3.579.2.593 1967 Unknown [id number] 2.16.840.1.773271.3.579.2.1286 1967 Unknown [id number] 2.16.840.1.495389.3.579.2.1286 1967 Unknown [id number] 2.16.840.1.002391.3.579.2.1286 1967 Unknown [id number] 2.16.840.1.924527.3.579.2.1286 1967 Unknown [id number] 2.16.840.1.656793.3.579.2.1286 1967 Unknown [id number] 2.16.840.1.735685.3.579.2.1285 1967 Unknown [id number] 2.16.840.1.404389.3.579.2.727 1967 Unknown [id number] 2.16.840.1.332516.3.579.2.727 1967 Unknown [id number] 2.16.840.1.302198.3.579.2.727 1967 Unknown [id number] 2.16.840.1.714257.3.579.2.727 1959 Unknown [id number] Social History Date Type Detail Facility Start: 06-29-2022 End: 05-18-2023 Tobacco smoking status Ex-smoker (finding) [facility] Start: 03-03-2022 End: 08-09-2023 Sex Assigned At Male [facility] Tobacco smoking status Never [facility] End: 03-21-2018 History of tobacco use Current smoker [facility] End: 03-21-2018 History of tobacco use Cigarette Smoker [facility] Start: 03-03-2022 End: 05-18-2023 Cigarettes smoked current (pack per day) - Reported 1 [facility] Start: 05-18-2023 Tobacco use and exposure Smoke less tobacco non-user [facility] Start: 05-18-2023 End: 08-09-2023 Alcohol intake Ex-drinker (finding) [facility] Do you belong to any clubs or organizations such as jainism groups, unions, fraternal or athletic groups, or school groups? No [facility] Are you now , , , , never or living with a partner? [facility] How often to you hav e a drink containing alcohol? Never [facility] How hard is it for y ou to pay for the very basics like food, housing, medical care, and heating Somewhat hard [facility] Do you feel stress - tense, restless, nervous, or anxious, or unable to sleep at night because your mind is troubled all the time - these days [OSQ] Very much [facility] Start: 09-07-2020 Education 11 [facility] Start: 05-18-2023 Tobacco Comment former smoker [facility] Start: 1965 Sex Assigned At Not on file P [facility] Functional Status Date Assessment Result Facility 04-13-2023 Functional Status N/A [facility] 03-01-2023 Functional Status N/A [facility] 12-29-2022 Functional Status N/A [facility] 08-08-2022 Functional Status N/A [facility] 06-29-2022 Functional Status No [facility] Clinical Notes 12-25-2020 to 10-18-2023 Telephone Encounter - EH Carter - 10/18/2023 12:15 PM EDTTelephone Encounter - EH Carter - 10/18/2023 12:15 PM EDT Note Date & Type Note Facility 10-18-2023 Miscellaneous Notes The [employer] database was reviewed today and found to be appropriate. No indication of medication diversion, or non compliance. Last fill alprazolam 1 mg TID # 90 tablets no refills Diagnosis: Generalized anxiety with panic attacks. PTSD documented in this encounter [facility] 10-18-2023 Telephone encounter Note The [employer] database was reviewed today and found to be appropriate. No indication of medication diversion, or non compliance. Last fill alprazolam 1 mg TID # 90 tablets no refills Diagnosis: Generalized anxiety with panic attacks. PTSD [facility] 08-28-2023 History of Presen t illness Narrative The [employer]formerly [employer] database was reviewed today and found to be appropriate. No indication of medication diversion, or non compliance. Last fill alprazolam 1 mg TID # 90 tablets no refills Diagnosis: Generalized anxiety with panic attacks. PTSD EH Carter APRN-CNP 08/28/23 0905 documented in this encounter [facility] 08-21-2023 Miscellaneous Notes I'm holding this. He called way to early for refill. Not due to fill until August 30. documented in this encounter [facility] 08-21-2023 Telephone encounter Note I'm holding this. He called way to early for refill. Not due to fill until August 30. [facility] 08-09-2023 History of Presen t illness Narrative Images from the original note were not included. [address] [facility] [address] SUBJECTIVE: Patient ID: Qing Clark is a 58 y.o. male. Chief Complaint Patient presents with Annual Exam Presents for annual physical exam Offers no complaints today Is monitored every 3 months by GI for cirrhosis of the liver secondary to history of hepatitis C Previous smoker. Quit over 8 years ago . Has two adult children. The following portions of the patient's history were reviewed and updated as appropriate: allergies, current medications, past family history, past medical history, past social history, past surgical history and problem list. Past Surgical History: Procedure Laterality Date CHEST TUBE INSERTION 2011 TONSILLECTOMY Past Medical History: Diagnosis Date Back pain 2014 CHF (congestive heart failure) ([facility]-H[facility]) 2014 COPD (chronic obstructive pulmonary disease) ([facility]-HCC) Emphysema of lung (CMS-HCC) 2014 Hepatitis C Immunization History Administered Date(s) Administered COVID-19, mRNA, LNP-S, PF, 30mcg/0.3mL Dose 07/17/2021, 08/15/2021 REVIEW OF SYSTEMS: Review of Systems Constitutional: Negative for chills, fatigue and fever. HENT: Negative for hearing loss and trouble swallowing. Eyes: Negative for pain and visual disturbance. Respiratory: Negative for cough and chest tightness. Cardiovascular: Negative for leg swelling. Gastrointestinal: Negative for blood in stool. Endocrine: Negative for polydipsia, polyphagia and polyuria. Genitourinary: Negative for difficulty urinating, dysuria, flank pain, hematuria, scrotal swelling and testicular pain. Musculoskeletal: Negative. Skin: Negative. Allergic/Immunologic: Negative. Neurological: Negative for seizures and syncope. Hematological: Does not bruise/bleed easily. Psychiatric/Behavioral: Negative. PHYSICAL EXAMINATION: Vitals: 08/09/23 1256 BP: 120/78 BP Site: Left Arm BP Postition: Sitting Pulse: 84 Temp: 36.6 C (97.8 F) TempSrc: Oral SpO2: 93% Weight: 85.5 kg (188 lb 8 oz) Height: 180.3 cm (5' 11 ) Patient noted to have elevated BMI and the following intervention(s) were applied: encouragement to exercise. Physical Exam Vitals and nursing note reviewed. Constitutional: General: He is not in acute distress. Appearance: He is well-developed. HENT: Head: Normocephalic and atraumatic. Right Ear: Tympanic membrane and external ear normal. Left Ear: Tympanic membrane and external ear normal. Nose: Nose normal. Mouth/Throat: Mouth: Mucous membranes are moist. Dentition: Abnormal dentition. Dental caries present. Pharynx: No oropharyngeal exudate. Eyes: General: No scleral icterus. Right eye: No discharge. Left eye: No discharge. Conjunctiva/sclera: Conjunctivae normal. Pupils: Pupils are equal, round, and reactive to light. Neck: Vascular: No JVD. Cardiovascular: Rate and Rhythm: Normal rate and regular rhythm. Heart sounds: Normal heart sounds. No murmur heard. No friction rub. No gallop. Pulmonary: Effort: Pulmonary effort is normal. No respiratory distress. Breath sounds: Normal breath sounds. Chest: Chest wall: No tenderness. Abdominal: General: Bowel sounds are normal. There is no distension. Palpations: Abdomen is soft. There is no mass. Tenderness: There is no abdominal tenderness. There is no guarding or rebound. Hernia: No hernia is present. Musculoskeletal: General: No tenderness. Normal range of motion. Cervical back: Normal range of motion and neck supple. Lymphadenopathy: Cervical: No cervical adenopathy. Skin: General: Skin is warm and dry. Capillary Refill: Capillary refill takes less than 2 seconds. Findings: No rash. Neurological: Mental Status: He is alert and oriented to person, place, and time. Deep Tendon Reflexes: Reflexes are normal and symmetric. Psychiatric: Mood and Affect: Mood normal. Behavior: Behavior normal. Thought Content: Thought content normal. Judgment: Judgment normal. ASSESSMENT/PLAN: Qing was seen today for annual exam. Diagnoses and all orders for this visit: Annual physical exam Encounter for screening for malignant neoplasm of prostate - Prostatic specific antigen screen; Future Blood tests for routine general physical examination - Comprehensive metabolic panel; Future - CBC auto differential; Future - Lipid profile; Future - Hemoglobin A1c; Future - TSH; Future Vitamin D deficiency - Vitamin D 25 hydroxy; Future Benign prostatic hyperplasia with weak urinary stream - tamsulosin (FLOMAX) 0.4 mg capsule; Take 1 capsule (0.4 mg total) by mouth in the morning. Generalized anxiety disorder with panic attacks - DULoxetine (CYMBALTA) 60 mg capsule; Take 1 capsule (60 mg total) by mouth in the morning and 1 capsule (60 mg total) before bedtime. Current moderate episode of major depressive disorder without prior episode (CMS-HCC) - DULoxetine (CYMBALTA) 60 mg capsule; Take 1 capsule (60 mg total) by mouth in the morning and 1 capsule (60 mg total) before bedtime. Reorder routine medication Anxiety and depression is controlled with duloxetine and PRN alprazolam Depression: Not at risk (08/09/2023) PHQ-2 PHQ-2 Score: 0 Colonoscopy screening discussed today. Risk and benefits of procedure explained. Patient has done 2022 per his GI provider. Recommendations to repeat in 5 years Labs drawn in office today Body mass index is 26.29 kg/m . Patient noted to have elevated BMI and the following intervention(s) were applied: Discussed current weight today. Consider healthy food choices, portion control. Avoid sugary beverages and high concentrated sweets. Routine exercise regimen encouraged. Education regarding preventative vaccines COVID-19 booster, influenza, and shingles vaccinations. Obtain through local pharmacy of his choice ALL QUESTIONS ANSWERED Total time spent was 30 minutes: Preparing to see the patient (e.g., review of tests) Obtaining and/or reviewing separately obtained history Performing a medically appropriate examination and/or evaluation Counseling and educating the patient/family/caregiver Ordering medications, tests, or procedures Follow-up: 3 months EH Carter 08/09/23 1451 documented in this encounter [facility] 07-24-2023 Miscellaneous Notes The OARRS/[employer] database was reviewed today and found to be appropriate. No indication of medication diversion, or non compliance. Fill alprazolam 1 mg TID # 90 tablets no refills Diagnosis: Generalized anxiety with panic attacks. PTSD documented in this encounter [facility] 07-24-2023 Telephone encounter Note The [employer]RS/[employer] database was reviewed today and found to be appropriate. No indication of medication diversion, or non compliance. Fill alprazolam 1 mg TID # 90 tablets no refills Diagnosis: Generalized anxiety with panic attacks. PTSD [facility] 05-10-2023 Note - From: Levi Uribe N To: [facility] - Administrative; Sent: 04/13/2023 11:10:23 EDT Show up: 04/13/2023 11:10:00 EDT Subject: Ambulatory Reminder Due Date/Time: 05/25/2023 11:10:00 EDT Reminder/Recall Patient needs a call when insurance is active with Dr. Thomas with a 2 month follow up/Hep C. Patient has Medicaid [place]. [facility] 04-13-2023 Hospital Discharg e instructions Patient Education 04/13/2023 10:59:28 Gastrointestinal Arteriovenous Malformations Gastrointestinal Arteriovenous Malformations A gastrointestinal arteriovenous malformation is a rare defect of tangled veins and arteries in the intestine. This defect can occur anywhere in the intestine. The defect creates an abnormal collection of blood vessels that can put pressure on other parts of your body that are close by. It causes blood vessels to expand (dilate) over time and sometimes bleed. Many people with this defect never have any symptoms. What are the causes? The cause of this condition is not known. This defect may be present at (congenital). It may be related to genetic causes or other factors. What are the signs or symptoms? Signs and symptoms often do not appear until you are older and may include: Blood in your stool. Black or dark red stools. Weakness or tiredness. Shortness of breath. Iron deficiency anemia. Dizziness or fainting. Abdominal pain. How is this diagnosed? This condition is diagnosed based on a physical exam and a medical history. Imaging tests may also be done, such as: X-ray. CT scan. Angiogram. This is a procedure used to examine the blood vessels. In this procedure, contrast dye is injected through a thin tube (catheter) into an artery. X-rays are then taken, which show if there is a blockage or problem in a blood vessel. Endoscopy. In this procedure, your health care provider passes a thin, flexible tube (endoscope) through your mouth and down your esophagus into your stomach. A small camera is attached to the end of the tube. Images from the camera appear on a monitor in the exam room. Small bowel enteroscopy. This is a procedure that uses a long thin scope to visualize areas in the small bowel. Capsule endoscopy. In this procedure, you will swallow a small capsule that has a tiny camera and transmitter in it. This capsule naturally travels through your digestive system. The camera takes photos of the small intestine along the way. How is this treated? The goal of treatment is to stop blood loss and prevent any future bleeding. Treatment may include: Procedures to stop the bleeding or to destroy the affected vessels. Abdominal surgery to remove the affected section of the digestive system. Blood transfusion to replace blood loss. Iron supplements for iron deficiency anemia. Follow these instructions at home: Take thoa-pxh-zhuqsxz and prescription medicines only as told by your health care provider. This includes iron supplements, if you are told to use them. Keep all follow-up visits. This is important. Contact a health care provider if: You have streaks of blood in your stool for a long time. Your stool is black or deep red. You have signs of anemia such as weakness, fatigue, or shortness of breath. You have new symptoms. Get help right away if: You see bright red blood during a bowel movement. You become dizzy or faint. These symptoms may represent a serious problem that is an emergency. Do not wait to see if the symptoms will go away. Get medical help right away. Call your local emergency services (911 in the [place] Do not drive yourself to the hospital. Summary Gastrointestinal arteriovenous malformation refers to an abnormal collection of blood vessels that can put pressure on other parts of your body that are close by. It causes blood vessels to dilate over time and sometimes bleed. Many people with this defect never have any symptoms. The goal of treatment is to stop blood loss and prevent any future bleeding. This information is not intended to replace advice given to you by your health care provider. Make sure you discuss any questions you have with your health care provider. Document Revised: 12/30/2021 Document Reviewed: 12/30/2021 [employer] Patient Education 2022 [employer]. Follow Up Care 03/14/2023 16:27:44 With:William BAR, SHAY Duke, [facility] Address: [address] [place] [address], [address] [phone] When:1 month [facility] 03-02-2023 Note [id number] [facility] 03-01-2023 Evaluation + Plan note Extrac abdirashid from: Title:ANES Post General Author:Pierce Cherry DO Date:03/01/23 Plan Transfer/Discharge: Patient exhibiting no signs of N/V. Hydration status is adequate. Extracted from: Title:Dilip Basic PRE Author:Poncho Cherry DO Date:03/01/23 Plan [place] [employer]esthesiologists (ASA) physical status classification: Class III. Anesthetic Preoperative Plan: Anesthesia General. Future Scheduled Tests Laboratory* HCV RT-PCR, Quant (Non-Graph) 04/06/23 * HCV RT-PCR, Quant (Non-Graph) 07/14/23 [facility]08-02-2023 Hospital Discharge instructions Patient Education 03/01/2023 09:33:47 Endoscopy, Care After Procedure [place] (CUSTOM) Endoscopy Care After Procedure Please read the instructions outlined below and refer to this sheet in the next few weeks. These discharge instructions provide you with general information on caring for [facility] Your doctor may also give you specific instructions. While your treatment has been planned according to the most current medical practices available, unavoidable complications occasionally occur. If you have any problems or questions after discharge, please call your doctor. ACTIVITY You may resume your regular activity but move at a slower pace for the next 24 hours. Take frequent rest periods for the next 24 hours. Walking will help expel (get rid of) the air and reduce the bloated feeling in your abdomen. No driving for 24 hours (because of the anesthesia (medicine) used during the test). You may shower. Do not sign any important legal documents or operate any machinery for 24 hours (because of the anesthesia used during the test). NUTRITION Drink plenty of fluids. You may resume your normal diet. Begin with a light meal and progress to your normal diet. Avoid alcoholic beverages for 24 hours or as instructed by your caregiver. MEDICATIONS You may resume your normal medications unless your caregiver tells you otherwise. WHAT YOU CAN EXPECT TODAY You may experience abdominal discomfort such as a feeling of fullness or gas pains. FOLLOW-UP Your doctor will discuss the results of your test with you. SEEK IMMEDIATE MEDICAL ATTENTION IF ANY OF THE FOLLOWING OCCUR: Excessive nausea (feeling sick to your stomach) and/or vomiting. Severe abdominal pain and distention (swelling). Trouble swallowing. Temperature over 100 F (37.8 C). Rectal bleeding or vomiting of blood. Document Released: 02/28/2005 Document Re-Released: 01/08/2007 [employer] Patient Information [employer]. 03/01/2023 09:33:42 [place] NSAIDS-Nonsteroidal Anti-Inflammatory Medications (CUSTOM) Nonsteroidal Anti-Inflammatory Medications (NSAIDS) Non-steroidal anti-inflammatory drugs (NSAIDs) are a medication widely used to treat a wide range of conditions. Common acute (short-term) conditions that can be treated with NSAIDs include: headaches painful periods toothache soft tissue injuries such as sprains and strains reduce inflammation (redness and swelling) infections, such as the common cold or the flu (NSAIDs do not treat the underlying infections, but can help to relieve symptoms; especially fever) Common chronic (long-term) conditions that can be treated with NSAIDs include: most types of arthritis, including rheumatoid arthritis and osteoarthritis back pain neck pain Some NSAIDs are available [id number]-ozp-[id number], without the need for a prescription. However, because a medication is available over the counter it does not mean it is safe or suitablefor everyone. Again, it is important to read the patient information leaflet that comes with your medication. NSAID drugs include: Brand: Generic: Bufferin; Jack Aspirin; ASA Celebrex Celecoxib Zipsor; Cambia Diclofenac Motrin; Advil Ibuprofen Indosin Indometacin Actron; Orudis Ketoprofen Toradol Ketorolac Mobic Meloxicam Ponstel Mefenamic Acid Aleve; Naprosyn Naproxen Side effects: Most people take NSAIDs without having any side effects. Short term use is unlikely to cause significant problems, especially in younger patients. If side effects do occur they usually affect the stomach and can include: Indigestion Nausea Stomach pain Stomach ulcer Bleeding from the stomach and intestines Other side effects: Ringing in the ears itching Poor control of asthma Headache Allergic reactions NSAIDs are also not usually recommended for people who: are or have a history of kidney disease have a history of liver disease have active stomach ulcers (a sore in the lining of the stomach), or are at risk of developing stomach ulcers How to take NSAIDS: NSAIDS should be taken in the pill form or given by injection. If you are taking the pill form, it is best to take with food to avoid an upset stomach. IF a dose is missed: Some of these medications are taken as needed. Do not take more of your NSAID than your doctor hasprescribed. Follow the ruvc-knc-jktpsff labels and do not exceed the recommended dosage. If you take an NSAID daily, take the missed dose of your medication as soon as you remember it. If it is too close to the time for your next dose, skip the missed dose and go back to taking this medication at your normal time. Do not take two doses of this medication at the same time or take any extra doses of this medication. If any questions regarding your medications, contact your physician or pharmacist. Follow Up Care 12/29/2022 14:19:42 With:ELIANA BAR, SHAY Lemons, [facility] Address: [address] [place] [address] Business (1) When: Unknown Comments:Call for any problems. Office to call for follow up appt. [facility]08-02-2023 NoteEndoscopy Care After Procedure Please read the instructions outlined below and refer to this sheet in the next few weeks. These discharge instructions provide you with general information on caring for yourself [facility]. Your doctor may also give you specific instructions. While your treatment has been planned according to the most current medical practices available, unavoidable complications occasionally occur. If you have any problems or questions after discharge, please call your doctor. ACTIVITY ? You may resume your regular activity but move at a slower pace for the next 24 hours. ? Take frequent rest periods for the next 24 hours. ? Walking will help expel (get rid of) the air and reduce the bloated feeling in your abdomen. ? No driving for 24 hours (because of the anesthesia (medicine) used during the test). ? You may shower. ? Do not sign any important legal documents or operate any machinery for 24 hours (because of the anesthesia used during the test). NUTRITION ? Drink plenty of fluids. ? You may resume your normal diet. ? Begin with a light meal and progress to your normal diet. ? Avoid alcoholic beverages for 24 hours or as instructed by your caregiver. MEDICATIONS ? You may resume your normal medications unless your caregiver tells you otherwise. WHAT YOU CAN EXPECT TODAY ? You may experience abdominal discomfort such as a feeling of fullness or ?gas? pains. FOLLOW-UP ? Your doctor will discuss the results of your test with you. seek immediate medical attention if any of the following occur: ? Excessive nausea (feeling sick to your stomach) and/or vomiting. ? Severe abdominal pain and distention (swelling). ? Trouble swallowing. ? Temperature over 100 F (37.8? C). ? Rectal bleeding or vomiting of blood. Document Released: 02/28/2005 Document Re-Released: 01/08/2007 ExitCare? Patient Information ?2009 [employer]. Nonsteroidal Anti-Inflammatory Medications (NSAIDS) Non-steroidal anti-inflammatory drugs (NSAIDs) are a medication widely used to treat a wide range of conditions. Common acute (short-term) conditions that can be treated with NSAIDs include: ? headaches ? painful periods ? toothache ? soft tissue injuries such as sprains and strains ? reduce inflammation (redness and swelling) ? infections, such as the common cold or the flu (NSAIDs do not treat the underlying infections, but can help to relieve symptoms; especially fever) Common chronic (long-term) conditions that can be treated with NSAIDs include: ? most types of arthritis, including rheumatoid arthritis and osteoarthritis ? back pain ? neck pain Some NSAIDs are available qlqu-jbv-cjydjip, without the need for a prescription. However, because a medication is available over the counter it does not mean it is safe or suitablefor everyone. Again, it is important to read the patient information leaflet that comes with your medication. NSAID drugs include: Brand: Generic: Bufferin; Jack Aspirin; ASA Celebrex Celecoxib Zipsor; Cambia Diclofenac Motrin; Advil Ibuprofen Indosin Indometacin Actron; Orudis Ketoprofen Toradol Ketorolac Mobic Meloxicam Ponstel Mefenamic Acid Aleve; Naprosyn Naproxen Side effects: Most people take NSAIDs without having any side effects. Short term use is unlikely to cause significant problems, especially in younger patients. If side effects do occur they usually affect the stomach and can include: ? Indigestion ? Nausea ? Stomach pain ? Stomach ulcer ? Bleeding from the stomach and intestines Other side effects: ? Ringing in the ears ? itching ? Poor control of asthma ? Headache ? Allergic reactions NSAIDs are also not usually recommended for people who: ? are or ? have a history of kidney disease ? have a history of liver disease ? have active stomach ulcers (a sore in the lining of the stomach), or are at risk of developing stomach ulcers How to take NSAIDS: NSAIDS should be taken in the pill form or given by injection. If you are taking the pill form, it is best to take with food to avoid an upset stomach. IF a dose is missed: Some of these medications are taken ?as needed.? Do not take more of your NSAID than your doctor has prescribed. Follow the qoez-ryv-mfjwkij labels and do not exceed the recommended dosage. If you take an NSAID daily, take the missed dose of your medication as soon as you remember it. If it is too close to the time for your next dose, skip the missed dose and go back to taking this medication at your normal time. Do not take two doses of this medication at the same time or take any extra doses of this medication. If any questions regarding your medications, contact your physician or pharmacist. omeprazole (oh MEP ra zol) FIRST Omeprazole, Good Sense Omeprazole, Omeprazole + SyrSpend SF Sintia, PriLOSEC, PriLOSEC OTC What is the most important information I should know about (more content not included)...[facility]01-11-2023 Hospital Discharge instructions Patient Education 08/10/2022 12:16:35 [place] NSAIDS-Nonsteroidal Anti-Inflammatory Medications (Custom) Nonsteroidal Anti-Inflammatory Medications (NSAIDS) Non-steroidal anti-inflammatory drugs (NSAIDs) are a medication widely used to treat a wide range of conditions. Common acute (short-term) conditions that can be treated with NSAIDs include: headaches painful periods toothache soft tissue injuries such as sprains and strains reduce inflammation (redness and swelling) infections, such as the common cold or the flu (NSAIDs do not treat the underlying infections, but can help to relieve symptoms; especially fever) Common chronic (long-term) conditions that can be treated with NSAIDs include: most types of arthritis, including rheumatoid arthritis and osteoarthritis back pain neck pain Some NSAIDs are available wtck-kye-oabmimq, without the need for a prescription. However, because a medication is available over the counter it does not mean it is safe or suitablefor everyone. Again, it is important to read the patient information leaflet that comes with your medication. NSAID drugs include: Brand: Generic: Bufferin; Jack Aspirin; ASA Celebrex Celecoxib Zipsor; Cambia Diclofenac Motrin; Advil Ibuprofen Indosin Indometacin Actron; Orudis Ketoprofen Toradol Ketorolac Mobic Meloxicam Ponstel Mefenamic Acid Aleve; Naprosyn Naproxen Side effects: Most people take NSAIDs without having any side effects. Short term use is unlikely to cause significant problems, especially in younger patients. If side effects do occur they usually affect the stomach and can include: Indigestion Nausea Stomach pain Stomach ulcer Bleeding from the stomach and intestines Other side effects: Ringing in the ears itching Poor control of asthma Headache Allergic reactions NSAIDs are also not usually recommended for people who: are or have a history of kidney disease have a history of liver disease have active stomach ulcers (a sore in the lining of the stomach), or are at risk of developing stomach ulcers How to take NSAIDS: NSAIDS should be taken in the pill form or given by injection. If you are taking the pill form, it is best to take with food to avoid an upset stomach. IF a dose is missed: Some of these medications are taken as needed. Do not take more of your NSAID than your doctor has prescribed. Follow the gdrh-oij-hfklios labels and do not exceed the recommended dosage. If you take an NSAID daily, take the missed dose of your medication as soon as you remember it. If it is too close to the time for your next dose, skip the missed dose and go back to taking this medication at your normal time. Do not take two doses of this medication at the same time or take any extra doses of this medication. If any questions regarding your medications, contact your physician or pharmacist. Follow Up Care 06/29/2022 11:15:22 With:Cristo MONROY Address: [address] [place] [address]. [address] [place] [address] Business (1) When: Unknown Comments:Call Dr. Zayas office to reschedule liver biopsy [facility]01-09-2023 Hospital Discharge instructions Patient Education 08/08/2022 12:54:09 Colonoscopy, Care After Surgery Eliana (CUSTOM) Colonoscopy Care After Surgery Please read the instructions outlined below and refer to this sheet in the next few weeks. These discharge instructions provide you with general information on caring for [facility] Your doctor may also give you specific instructions. While your treatment has been planned according to the most current medical practices available, unavoidable complications occasionally occur. If you have any problems or questions after discharge, please call your doctor. ACTIVITY You may resume your regular activity, but move at a slower pace for the next 24 hours. Take frequent rest periods for the next 24 hours. Walking will help get rid of the air and reduce the bloated feeling in your abdomen (belly). No driving for 24 hours (because of the anesthesia (medicine) used during the test). You may shower. Do not sign any important legal documents or operate any machinery for 24 hours (because of the anesthesia used during the test). NUTRITION Drink plenty of fluids. You may resume your normal diet as instructed by your doctor. Begin with a light meal and progress to your normal diet. Heavy or fried foods are harder to digestand may make you feel nauseated (sick to your stomach). Avoid alcoholic beverages for 24 hours or as instructed. MEDICATIONS You may resume your normal medications unless your doctor tells you otherwise. WHAT YOU CAN EXPECT TODAY Some feelings of bloating in the abdomen. Passage of more gas than usual. Spotting of blood in your stool or on the toilet paper. FOLLOW-UP Your doctor will discuss the results of your test with you. SEEK IMMEDIATE MEDICAL ATTENTION IF: There is more than a spotting of blood in your stool. There is abdominal distention (your abdomen is swollen). There is vomiting. You have a temperature over 101.5 F. There is abdominal pain or discomfort that is severe or gets worse throughout the day. 08/08/2022 12:54:09 Diverticulosis MAGR (CUSTOM) Diverticulosis Many people have small pouches in their colon called diverticulum. The diverticulum bulge outward through weak spots in the colon. You could have one or more of these pouches in the colon. The condition of having these pouches in the colon is called diverticulosis or diverticular disease. Diverticulosis is usually diagnosed by tests to evaluate something else. For example, you may have had a colonoscopy to screen for colon cancer when the diverticulosis was found. Most people with diverticulosis do not have any discomfort or problems. If symptoms develop, they may include mild cramps, bloating, and constipation. A complication of this condition is called diverticulitis. This is when the diverticulum become inflamed and infected. How to treat diverticulosis: Increasing the amount of fiber in the diet may reduce symptoms of diverticulosis and prevent complications such as diverticulitis (infected diverticuli). Fiber keeps stool soft and lowers pressure inside the colon so that bowel contents can move througheasily. You should eat 20 to 35 grams of fiber each day. The table below shows the amount of fiber in some foods that you can easily add to your diet. Adding fiber slowly may decrease the bloating and fullness sometimes felt with an immediate high fiber diet. The doctor may also recommend taking a fiber product such as Citrucel or Metamucil once a day. In the past people with diverticulosis were to avoid nuts, corn, and seeds. This has not been foundto be true. If you find that certain foods create cramping or bloating, avoid that food. Foods high in fiber include: Fresh fruits, fresh vegetables, legumes (beans), whole wheat bread, bran muffins or cereal, and nuts. See the table below for examples of high fiber foods. Remember, your goal is 20- 35 grams per day. Amount of fiber in different foods Food Serving Grams of fiber Fruits Apple (with skin) 1 medium apple 4.4 Banana 1 medium banana 3.1 Oranges 1 orange 3.1 Prunes 1 cup, pitted 12.4 Juices Apple, unsweetened, w/added ascorbic acid 1 cup 0.5 Grapefruit, white, canned, sweetened 1 cup 0.2 Grape, unsweetened, w/added ascorbic acid 1 cup 0.5 [place] 1 cup 0.7 Vegetables Cooked Green beans 1 cup 4.0 Carrots 1/2 cup sliced 2.3 Peas 1 cup 8.8 Potato (baked, with skin) 1 medium potato 3.8 Raw [place] (with peel) 1 cucumber 1.5 Lettuce 1 cup shredded 0.5 Tomato 1 medium tomato 1.5 Spinach 1 cup 0.7 Legumes Baked beans, canned, no salt added 1 cup 13.9 Kidney beans, canned 1 cup 13.6 Haque beans, canned 1 cup 11.6 Lentils, boiled 1 cup 15.6 Breads, pastas, flours Bran muffins 1 medium muffin 5.2 Oatmeal, cooked 1 cup 4.0 White bread 1 slice 0.6 Whole-wheat bread 1 slice 1.9 Pasta and rice, cooked Macaroni 1 cup 2.5 Rice, brown 1 cup 3.5 Rice, white 1 cup 0.6 Spaghetti (regular) 1 cup 2.5 Nuts Almonds 1/2 cup 8.7 Peanuts 1/2 cup 7.9 Chart from [facility] 2013. SEEK IMMEDIATE MEDICAL CARE IF: You develop abdominal (belly) pain. An oral temperature above _ 101 F__develops. Repeated vomiting occurs. Blood is being passed in stools (bright red or black tarry stools). You develop any bowel problems or changes which you have not had before. Extra Information: To learn how much fiber and other nutrients are in different foods, visit the [place] Department of Agriculture (USDA) National Nutrient Database at: http://www.nal.usda.gov/fnic/foodcomp/search/ Created using data from the USDA National Nutrient Database for Standard Reference. Available at http://www.nal.usda.gov/fnic/foodcomp/search/. Information adapted from: [facility] Patient Information 2009 [place]. [employer] 2012 http://www.[employer]contents/ivmfovzlierb-xgzyftz-wgcxsh-the-basics 08/08/2022 12:54:09 Colon Polyps Colon Polyps Polyps are tissue growths inside the body. Polyps can grow in many places, including the large intestine (colon). A polyp may be a round bump or a mushroom-shaped growth. You could have one polyp or several. Most colon polyps are noncancerous (benign). However, some colon polyps can become cancerous over time. Finding and removing the polyps early can help prevent this. What are the causes? The exact cause of colon polyps is not known. What increases the risk? You are more likely to develop this condition if you: Have a family history of colon cancer or colon polyps. Are older than 50 or older than 45 if you are . Have inflammatory bowel disease, such as ulcerative colitis or Crohn's disease. Have certain hereditary conditions, such as: ?Familial adenomatous polyposis. ?Chery syndrome. ?Turcot syndrome. ?Peutz Jeghers syndrome. Are overweight. Smoke cigarettes. Do not get enough exercise. Drink too much alcohol. Eat a diet that is high in fat and red meat and low in fiber. Had childhood cancer that was treated with abdominal radiation. What are the signs or symptoms? Most polyps do not cause symptoms. If you have symptoms, they may include: Blood coming from your rectum when having a bowel movement. Blood in your stool. The stool may look dark red or black. Abdominal pain. A change in bowel habits, such as constipation or diarrhea. How is this diagnosed? This condition is diagnosed with a colonoscopy. This is a procedure in which a lighted, flexible scope is inserted into the anus and then passed into the colon to examine the area. Polyps are sometimes found when a colonoscopy is done as part of routine cancer screening tests. How is this treated? Treatment for this condition involves removing any polyps that are found. Most polyps can be removed during a colonoscopy. Those polyps will then be tested for cancer. Additional treatment may be needed depending on the results of testing. Follow these instructions at home: Lifestyle Maintain a healthy weight, or lose weight if recommended by your health care provider. Exercise every day or as told by your health care provider. Do not use any products that contain nicotine or tobacco, such as cigarettes and e-cigarettes. If you need help quitting, ask your health care provider. If you drink alcohol, limit how much you have: ?0 1 drink a day for women. ? 0 2 drinks a day for men. Be aware of how much alcohol is in your drink. In the [place] one drink equals one 12 oz bottle of beer (355 mL), one 5 oz glass of wine (148 mL), or one 1 oz shot of hard liquor (44 mL). Eating and drinking Eat foods that are high in fiber, such as fruits, vegetables, and whole grains. Eat foods that are high in calcium and vitamin D, such as milk, cheese, yogurt, eggs, liver, fish, and broccoli. Limit foods that are high in fat, such as fried foods and desserts. Limit the amount of red meat and processed meat you eat, such as hot dogs, sausage, fay, and lunch meats. General instructions Keep all follow-up visits as told by your health care provider. This is important. ?This includes having regularly scheduled colonoscopies. ?Talk to your health care provider about when you need a colonoscopy. Contact a health care provider if: You have new or worsening bleeding during a bowel movement. You have new or increased blood in your stool. You have a change in bowel habits. You lose weight for no known reason. Summary Polyps are tissue growths inside the body. Polyps can grow in many places, including the colon. Most colon polyps are noncancerous (benign), but some can become cancerous over time. This condition is diagnosed with a colonoscopy. Treatment for this condition involves removing any polyps that are found. Most polyps can be removed during a colonoscopy. This information is not intended to replace advice given to you by your health care provider. Make sure you discuss any questions you have with your health care provider. Document Released: 04/12/2005 Document Revised: 11/01/2018 Document Reviewed: 11/01/2018 [employer] Patient Education 2020 [place] Follow Up Care 08/05/2022 14:44:08 With:Cristo MONROY Address: [address] [place] [address] Business (1) When: Unknown Comments:office will call for follow up [facility]01-09-2023 Evaluation + Plan noteExtracted from: Title:Post-anesthesia - General Author:Edis Eaton DO Date:08/08/22 Plan Transfer/ Discharge: Condition stable. Extracted from: Title:Pre-anesthesia - Endoscopy Author:Edis Ruvalcaba Jr., DO Date:08/08/22 Plan [place] [employer]hesi[employer] (ASA) physical status classification: Class II. Anesthetic Preoperative Plan Anesthesia: General. . Anesthetic plan, risks, benefits, and alternatives discussed with the patient and/or family. Patient verbalized understanding. Future Appointments Appointment Date:08/10/2022 12:00:00 PM Scheduled Provider: Location:[facility] Appointment Type:Surgery FT Appointment Date:10/05/2022 10:00:00 AM Scheduled Provider:Cristo MONROY MD Location:[facility] Appointment Type:[facility] Follow Up Diagnostic Tests Pending * Urine 7 Drugs+Alcohol 08/08/22 * HCV RNA by PCR, Qn Rfx Rae 08/08/22 * Hepatitis B Surface Antibody 08/08/22 * HIV Screen 4th Generation wRfx 08/08/22 [facility]10-14-2022 Hospital Discharge instructions Follow Up Care 05/13/2022 14:26:19 With:ELIANA BAR, Cristo, [facility], [facility] Address: [facility] [address] [place] [address]- When:3 months [facility] [phone] NotePROCEDURE: XR WRIST LT MIN 3 V COMPARISON: None. HISTORY: Pain FINDINGS: BONES:No acute fracture or dislocation. Mild degenerative changes most significant along the scaphoid trapezoid joint SOFT TISSUES:Mild soft tissue swelling EFFUSION:None visible. OTHER: Negative. IMPRESSION: No acute fracture Electronically authenticated by: CHRISTOPHER VALLE Date: 2020-12-25 20:59[facility] Future Appointments Appointment Date:07/13/2022 09:30:00 AM Scheduled Provider: Location:.[facility] Appointment Type:US Abdominal/Pelvis (FT) Appointment Date:07/13/2022 10:00:00 AM Scheduled Provider: Location:[facility] Appointment Type:Surgery FT Appointment Date:08/08/2022 01:10:00 PM Scheduled Provider: Location:[facility] Appointment Type:Surgery FT Future Scheduled Tests Laboratory* Lab Miscellaneous-LC 06/29/22 * HCV RNA by PCR, Qn Rfx Rae 06/29/22 * HIV Screen 4th Generation wRfx 06/29/22 * Hepatitis B Surface Antibody 06/29/22 Radiology* US Liver 07/13/22 [facility] Evaluation + Plan note Future Appointments Appointment Date:08/08/2022 01:10:00 PM Scheduled Provider: Location:[facility] Appointment Type:Surgery FT Future Scheduled Tests Laboratory* Lab Miscellaneous-LC 06/29/22 * HCV RNA by PCR, Qn Rfx Rae 06/29/22 * HIV Screen 4th Generation wRfx 06/29/22 * Hepatitis B Surface Antibody 06/29/22 [facility] App[facility]ments Appointment Date:10/05/2022 10:00:00 AM Scheduled Provider:Cristo MONROY MD Location:[facility] Appointment Type:[facility] Future Appointments Appointment Date:10/13/2022 08:00:00 AM Scheduled Provider: Location:[facility] Appointment Type:Surgery FT [facility] Evaluation + Plan note Future Appointments Appointment Date:02/16/2023 01:55:00 PM Scheduled Provider: Location:[facility] Appointment Type:Surgery FT Future Scheduled Tests Laboratory* CBC w/ Indices 12/29/22 * Comprehensive Metabolic Panel 12/29/22 * PT 12/29/22 Radiology* US Liver 12/29/22 [facility] Evaluation + Plan note Future Appointments Appointment Date:02/16/2023 01:55:00 PM Scheduled Provider: Location:[facility] Appointment Type:Surgery FT Future Scheduled Tests Laboratory* HCV RT-PCR, Quant (Non-Graph) 02/09/23 * HCV RT-PCR, Quant (Non-Graph) 04/06/23 * HCV RT-PCR, Quant (Non-Graph) 07/14/23 * CBC w/ Indices 12/29/22 * Comprehensive Metabolic Panel 12/29/22 * PT 12/29/22 [facility] App[facility]ments Appointment Date:02/16/2023 01:55:00 PM Scheduled Provider: Location:[facility] Appointment Type:Surgery FT Diagnostic Tests Pending * HCV RT-PCR, Quant (Non-Graph) 02/07/23 Future Scheduled Tests Laboratory* HCV RT-PCR, Quant (Non-Graph) 04/06/23 * HCV RT-PCR, Quant (Non-Graph) 07/14/23 [facility] App[facility]ments Appointment Date:04/13/2023 10:40:00 AM Scheduled Provider:Yvette Doran CNP Location:[facility] Appointment Type:[facility] Follow Up Diagnostic Tests Pending * HCV RT-PCR, Quant (Non-Graph) 04/06/23 Future Scheduled Tests Laboratory* HCV RT-PCR, Quant (Non-Graph) 07/14/23 [facility] Laboratory* HCV RT-PCR, Quant (Non-Graph) 07/14/23 [facility] Evaluation note* Diagnosis Narcotic drug use Generalized anxiety disorder with panic attacks PTSD (post-traumatic stress disorder) Posttraumatic stress disorder documented in this encounter [facility]* Diagnosis Annual physical exam- Primary Routine general medical examination at a health care facility Encounter for screening for malignant neoplasm of prostate Blood tests for routine general physical examination Laboratory examination ordered as part of a routine general medical examination Vitamin D deficiency Benign prostatic hyperplasia with weak urinary stream Generalized anxiety disorder with panic attacks Current moderate episode of major depressive disorder without prior episode ([facility]) [facility]* Diagnosis Narcotic drug use Generalized anxiety disorder with panic attacks PTSD (post-traumatic stress disorder) Posttraumatic stress disorder documented in [facility]* Diagnosis COPD mixed type (CMS-HCC) [facility] Narrative No data available for this section [facility] Hospital Discharge instructions No data available for this section [facility]ructionsNot on filedocumented in this encounter [facility]Instructions* Attachments The following attachments cannot be sent through Care Everywhere. * Hepatitis C (Vietnamese) * Vitamin D deficiency (Vietnamese) [facility] SystemInstructionsNot on file documented in this [facility]Pro[facility] SystemInstructionsNot on file documented in this [facility] SystemInstructionsNot on file documented in this [facility]Pro[facility] SystemInstructionsNot on file documented in this [facility] SystemProgress note No data available for this section [facility] Summary Purpose Family History No Family History Records FoundNo Family History Records FoundNo Family History Records FoundNo Family History Records FoundNo Family History Records Found Advance Directives No Advanced Directives Records FoundNo Advanced Directives Records FoundNo Advanced Directives Records FoundNo Advanced Directives Records FoundNo Advanced Directives Records Found Additional Source Comments (unrecognized sect ion and content) No Status Records FoundNo Status Records FoundNo Status Records FoundNo Status Records FoundNo Status Records Found INFORMATION SOURCE (unrecogn ized section and content) DATE CREATED AUTHOR 12/31/2020 [facility] DATE CREATED AUTHOR AUTHOR'S ORGANIZ ATION [facility]2023 [facility] DATE CREATED AUTHOR AUTHOR'S ORGANIZ ATION 11/11/2023 [facility] DATE CREATED AUTHOR AUTHOR'S ORGANIZ ATION 11/19/2023 [facility] DATE CREATED AUTHOR AUTHOR'S ORGANIZ ATION 02/13/2024 [facility] Patient Care team informatio n (unrecognized section and content) Echo Technologist Relationship Specialty Start Date End Date Maria E Graham, LEAD DEVELOPER-MANAGED CARE ANALYST [address] [place] [address] PCP - General Family Medicine 03/22/19 Echo Technologist Relationship Specialty Start Date End Date Maria E Graham [facility] [address] [place] [address] PCP - General Family Medicine 03/22/19 Echo Technologist Relationship Specialty Start Date End Date Maria E Graham [facility] [address] [place] [address] PCP - General Family Medicine 03/22/19 Echo Technologist Relationship Specialty Start Date End Date Maria E Graham [facility] [address] [place] [address] PCP - General Family Medicine 03/22/19 Echo Technologist Relationship Specialty Start Date End Date [facility] E [facility] [address] [place] [address] PCP - General Family Medicine 03/22/19 Echo Technologist Relationship Specialty Start Date End Date Maria E Graham [facility] [address] [place] [address] PCP - General Family Medicine 03/22/19 Reason for Visit (unrecogniz ed section and content) Reason Onset Date Comments Med Refill 07/24/2023 Reason Comments Annual Exam Reason Onset Date Comments Med Refill 08/21/2023 Reason Comments Med Refill Reason Onset Date Comments Med Refill 10/18/2023 FOR RECORDS PERTAINING TO PATIENTS WHO ARE OR HAVE BEEN ENROLLED IN A CHEMICAL DEPENDENCY/SUBSTANCEABUSE PROGRAM, SOME INFORMATION MAY BE OMITTED. This clinical summary was aggregated from multiple sources. Caution should be exercised in using it in the provision of clinical care. This summary normalizes information from multiple sources, and as a consequence, information in this document may materially change the coding, format and clinical context of patient data. In addition, data may be omitted in some cases. CLINICAL DECISIONS SHOULD BE BASED ON THE PRIMARY CLINICAL RECORDS. [facility]. provides no warranty or guarantee of the accuracy or completeness of information in this document.
[2024-02-13] MEDS: DEXAMETHASONE SOD PHOS 10 MG/ML VIAL IV (20:26)
[2024-02-13] MEDS: KETOROLAC TROMETHAMINE 30 MG/ML VIAL IVP (20:26)
[2024-02-13] MEDS: SUCRALFATE 1 GM TABLET PO (22:05)
[2024-02-13] MEDS: DULOXETINE HCL 60 MG CAPSULE.DR PO (22:05)
[2024-02-13] MEDS: HYDROCODONE/ACET 5-325 MG TABLET 1 TAB PO (22:05)
[2024-02-13] MEDS: ALPRAZOLAM 1 MG TABLET PO (22:05)
[2024-02-13] MEDS: IPRATROPIUM/ALBUTEROL SULFATE 3 ML AMPUL.NEB IH (22:52)
[2024-02-14] VITALS (10 sets, daily range): BP systolic 130–172; BP diastolic 76–83; PULSE 52–82; TEMP 36.4–36.7; O2SAT 90–95
[2024-02-14 01:00] LABS: Bilirubin Urine NEGATIVE (NEGATIVE); Blood Urine NEGATIVE (NEGATIVE); Clarity Urine CLEAR (CLEAR); Color Urine LT. YELLOW (YELLOW); Glucose Urine UA NEGATIVE (NEGATIVE); Ketones Urine NEGATIVE (NEGATIVE); Leukocyte Esterase Urine NEGATIVE (NEGATIVE); Nitrite Urine NEGATIVE (NEGATIVE); Protein Urine NEGATIVE (NEG/TRACE); Specific Gravity Urine 1.015 (1.005-1.025); Urobilinogen Urine 0.2 EU/dL (0.2-1.0)
[2024-02-14 01:07] LABS: Bacteria Urine NONE SEEN #/HPF (NONE SEEN); Cast Seen? NONE SEEN #/LPF (NONE SEEN); Crystals Seen? None Seen #/HPF (None Seen); Mucus Urine NONE SEEN (NONE SEEN); RBC Urine NONE SEEN #/HPF (0-2); Squamous Epithelial Cell Urine NONE SEEN #/LPF (NONE/RARE); Urine Culture Indicated NO; WBC Urine NONE SEEN #/HPF (NONE SEEN)
[2024-02-14] MEDS: ORPHENADRINE 60 MG/ 2 ML VIAL IV (01:10)
[2024-02-14] MEDS: KETOROLAC TROMETHAMINE 30 MG/ML VIAL IVP ×2 (01:10→08:33)
[2024-02-14] MEDS: IPRATROPIUM/ALBUTEROL SULFATE 3 ML AMPUL.NEB IH (05:19)
[2024-02-14 05:40] LABS: Basophils Percent Auto 0.1 % (0.2-2.0); Hematocrit 45.7 % (42.0-54.0); Hemoglobin 15.1 g/dL (14.0-18.0); Immature Granulocytes Abs Auto 0.04 10^3/uL (0.00-0.03); Immature Granulocytes Pct Auto 0.4 % (0.0-0.5); Lymphocytes Absolute Auto 1.5 10^3/uL (1.2-3.8); Lymphocytes Percent Auto 14.1 % (20.5-60.0); Mean Corpuscular Hemoglobin 30.1 pg (25.9-34.0); Mean Platelet Volume 11.5 fL (9.5-13.5); Monocytes Absolute Auto 0.3 10^3/uL (0.3-0.8); Monocytes Percent Auto 2.7 % (1.7-12.0); Neutrophils Absolute Auto 8.7 10^3/uL (1.4-6.5); Neutrophils Percent Auto 82.7 % (43.0-75.0); Platelet Count 216 10^3/uL (150-450); Red Blood Count 5.02 10^6/uL (4.70-6.10); Red Cell Distribution Width 14.4 % (11.0-15.0); White Blood Count 10.5 10^3/uL (4.0-11.0)
[2024-02-14 06:00] LABS: Alanine Aminotransferase 50 U/L (16-63); Albumin Level 3.7 g/dL (3.4-5.0); Alkaline Phosphatase 72 U/L (46-116); Aspartate Amino Transferase 33 U/L (15-37); BUN Creatinine Ratio 14.1; Calcium 9.1 mg/dL (8.5-10.1); Carbon Dioxide 28.4 mmol/L (21.0-32.0); Chloride 103 mmol/L (98-107); Estimated GFR (African America >60 (>=60); Estimated GFR (Non-African Ame >60 (>=60); Globulin 3.7 g/dL; Glucose 141 mg/dL (74-106); Potassium 4.4 mmol/L (3.5-5.1); Sodium 137 mmol/L (136-145); Total Protein 7.4 g/dL (6.4-8.2)
[2024-02-14] MEDS: HYDROCODONE/ACET 5-325 MG TABLET 1 TAB PO (08:32)
[2024-02-14] MEDS: METOPROLOL SUCCINATE 50 MG TAB.ER.24H PO (08:32)
[2024-02-14] MEDS: DULOXETINE HCL 60 MG CAPSULE.DR PO (08:32)
[2024-02-14] MEDS: SUCRALFATE 1 GM TABLET PO (08:32)
[2024-02-14] MEDS: ALPRAZOLAM 1 MG TABLET PO (08:32)
[2024-02-14] MEDS: TAMSULOSIN HCL 0.4 MG CAPSULE PO (08:33)
--- NOTE | 2024-02-14 08:36 | CM.NOTE ---
Rounds made with Dr. West. Testing reviewed with Mr. Brooks by Dr. West. Plan for discharge today. Follow up with PCP next week.
--- NOTE | 2024-02-14 08:51 | P.DS_ITS ---
DS: Providers Provider Date of admission: 02/13/24 18:28 Primary care physician: MARIA E HAMMONDS Consults: 02/13/24 17:56 Consult to Pharmacy Routine Consulting Provider: Reason for consultation: Please [place] me when Med Rec is Updated Has provider been notified: No Occupational Therapy Eval and Treat Routine Reason for consultation: Only if needed for Rehab Has provider been notified: No Physical Therapy Eval and Treat Routine Reason for consultation: Eval and Treat Has provider been notified: No DS: Diagnosis Discharge Diagnosis (1) Fracture of multiple thoracic vertebrae: (2) Closed lumbar vertebral fracture: Plan Sinus tachycardia, uncontrolled hypertension, leukocytosis secondary to fall with left eighth rib fracture, possible compression fracture although these are more likely old. Intractable pain in ER. Unable to ambulate without significant pain. Patient will be admitted overnight, [id number] Toradol and Norflex, 1 dose of Decadron, Dilaudid and hydrocodone for pain control. Physical therapy to work with patient tomorrow. If ambulating better will be discharged home tomorrow.-Sustained fracture left eighth rib. History of COPD-improving at the time of discharge Hypertension-restarted home medications History of acute VA-no current chest pain. Monitor closely. Left-sided abdominal tenderness. T improving at the time of discharge Admission status: Patient with intractable pain, about a 50% chance to be able to be discharged home tomorrow which would be [address] patient observation status. ? DS: Summary Hospital Course Hospital Course: Patient sustained a fall of at least 5 to 6 feet. Landing on left side. Resulting in left-sided eighth rib fracture. Unable to ambulate in the emergency room. Patient given pain medications in the ER and still unable to ambulate. He was admitted overnight to observation, given Toradol, Norflex, Decadron x 1. Patient feels improved this morning. He is can ambulate. If he is able to ambulate safely he will be discharged home in improving condition. Medications see list. Follow-up with his PCP within the next week. Status at Discharge Overall status at discharge: patient is not back to baseline Time Spent with Patient Time attestation: Total time spent providing and/or coordinating discharge services: Time spent: greater than 30 minutes Exam Constitutional Vital Signs, click to edit/add: Last Vital Signs Temp 98.1 F 02/14/24 07:25 Pulse 62 02/14/24 08:00 Resp 16 02/14/24 07:24 BP 133/78 02/14/24 07:25 Pulse Ox 95 02/14/24 07:25 O2 Del Method Room Air 02/14/24 07:25 DS: Data Data Completed and Pending Labs on day of discharge: Labs from last 24 hours 02/14/24 02/14/24 02/13/24 05:12 00:54 14:32 WBC 10.5 RBC 5.02 Hgb 15.1 Hct 45.7 MCV 91.0 MCH 30.1 MCHC 33.0 RDW 14.4 Plt Count 216 MPV 11.5 Neut % (Auto) 82.7 H Lymph % (Auto) 14.1 L [place] % (Auto) 2.7 Eos % (Auto) 0.0 L Baso % (Auto) 0.1 L Neut # (Auto) 8.7 H Lymph # (Auto) 1.5 [place] # (Auto) 0.3 Eos # (Auto) 0.0 Baso # (Auto) 0.0 Abs Immat Gran (auto) 0.04 H Imm/Tot Granulo (auto) 0.4 PT INR Sodium 137 Potassium 4.4 Chloride 103 Carbon Dioxide 28.4 Anion Gap 10.0 BUN 11.0 Creatinine 0.78 Est GFR ( Amer) >60 Est GFR (Non-Af Amer) >60 BUN/Creatinine Ratio 14.1 Glucose 141 H Calcium 9.1 Total Bilirubin 1.0 AST 33 ALT 50 Alkaline Phosphatase 72 Total Protein 7.4 Albumin 3.7 Globulin 3.7 Albumin/Globulin Ratio 1.0 Urine Color Lt. yellow Urine Clarity Clear Urine pH 8.0 Ur Specific [place] 1.015 Urine Protein Negative Urine Glucose (UA) Negative Urine Ketones Negative Urine Occult Blood Negative Urine Nitrite Negative Urine Bilirubin Negative Urine Urobilinogen 0.2 Ur Leukocyte Esterase Negative Urine RBC None seen Urine WBC None seen Ur Squamous Epith Cells None seen Urine Crystals None seen Urine Bacteria None seen Urine Casts None seen Urine Mucus None seen Ur Culture Indicated? No Blood Type O Negative Antibody Screen Negative 02/13/24 14:30 WBC 16.0 H RBC 5.21 Hgb 15.5 Hct 45.6 MCV 87.5 MCH 29.8 MCHC 34.0 RDW 14.1 Plt Count 247 MPV 11.8 Neut % (Auto) 58.0 Lymph % (Auto) 31.7 [place] % (Auto) 8.6 Eos % (Auto) 0.7 L Baso % (Auto) 0.6 Neut # (Auto) 9.3 H Lymph # (Auto) 5.1 H [place] # (Auto) 1.4 H Eos # (Auto) 0.1 Baso # (Auto) 0.1 Abs Immat Gran (auto) 0.06 H Imm/Tot Granulo (auto) 0.4 PT 10.9 INR 1.03 Sodium 139 Potassium 3.5 Chloride 102 Carbon Dioxide 25.7 Anion Gap 14.8 BUN 7.0 Creatinine 0.84 Est GFR ( Amer) >60 Est GFR (Non-Af Amer) >60 BUN/Creatinine Ratio 8.3 Glucose 119 H Calcium 9.4 Total Bilirubin 0.8 AST 45 H ALT 58 Alkaline Phosphatase 74 Total Protein 7.7 Albumin 4.2 Globulin 3.5 Albumin/Globulin Ratio 1.2 Urine Color Urine Clarity Urine pH Ur Specific [place] Urine Protein Urine Glucose (UA) Urine Ketones Urine Occult Blood Urine Nitrite Urine Bilirubin Urine Urobilinogen Ur Leukocyte Esterase Urine RBC Urine WBC Ur Squamous Epith Cells Urine Crystals Urine Bacteria Urine Casts Urine Mucus Ur Culture Indicated? Blood Type Antibody Screen Discharge Plan Discharge Disposition: Home, Self-Care Discharge Medications: New tizanidine 4 mg capsule 8 mg PO .qhs PRN (Reason: muscle spasticity) Qty: 20 0RF diclofenac sodium 75 mg tablet,delayed release (DR/EC) 75 mg PO BID Qty: 30 0RF Continued albuterol sulfate 90 mcg/actuation HFA aerosol inhaler 2 puff INHALATION Q6H PRN (Reason: shortness of breath or wheezing) alprazolam 1 mg tablet 1 mg PO TID PRN (Reason: anxiety) cholecalciferol (vitamin D3) 1,250 mcg (50,000 unit) capsule 1,250 mcg PO QWEEK duloxetine 60 mg capsule,delayed release(DR/EC) 60 mg PO BID metoprolol succinate 50 mg tablet extended release 24 hr 50 mg PO QAM sucralfate 100 mg/mL suspension 1 g PO ACHS Patient Comments: filled 02/08/24 x 14 days tamsulosin 0.4 mg capsule 0.4 mg PO QAM Print Language: Tunisian Forms: Portal Instructions Follow Up Appointments: February 20 @ 2:40pm with Vidhya Hammonds NP [phone]
--- NOTE | 2024-02-15 14:20 | CM.DCFOLLOWU ---
1st attempt 02/15/24
--- NOTE | 2024-02-16 11:34 | CM.DCFOLLOWU ---
1st attempt 02/16/24
--- NOTE | 2024-02-19 11:14 | CM.DCFOLLOWU ---
3rd attempt 02/19/24
== END 2024-02-14 11:30 | disposition home or self-care (01) ==
LOC: ER 16:38 → MS 18:39
PROVIDERS: Physician Assistant; Admitting Provider Family Medicine; Emergency Provider Emergency Medicine; PCP Nurse Practitioner; Visit Provider Family Medicine
DX: S22.32XA Fracture of one rib, left side, initial encounter for closed fracture (principal); K74.60 Unspecified cirrhosis of liver; R00.0 Tachycardia, unspecified; I10 Essential (primary) hypertension; D72.829 Elevated white blood cell count, unspecified; R10.9 Unspecified abdominal pain; J44.9 Chronic obstructive pulmonary disease, unspecified; I25.2 Old myocardial infarction; W10.9XXA Fall (on) (from) unspecified stairs and steps, initial encounter; S32.010D Wedge compression fracture of first lumbar vertebra, subsequent encounter for fracture with routine healing; S32.020D Wedge compression fracture of second lumbar vertebra, subsequent encounter for fracture with routine healing; S32.040D Wedge compression fracture of fourth lumbar vertebra, subsequent encounter for fracture with routine healing; S22.080D Wedge compression fracture of T11-T12 vertebra, subsequent encounter for fracture with routine healing; X58.XXXD Exposure to other specified factors, subsequent encounter
CPT/HCPCS: 36415; 70450; 71260; 72125; 72128; 72131; 74177; 80053; 81001; 85025; 85610; 86850; 86900; 86901; 87086; 93005; 94640; 94667; 94761; 96374; 96375; 96376; 97161; 97165; 99285; G0378; J1100; J1170; J1885; J2360; J2405; Q9967

== ENCOUNTER 2024-02-19 14:01 | Observation (INO) | payer OTHER, SELFPAY ==
[2024-02-19] VITALS (51 sets, daily range): BP systolic 171–206; BP diastolic 97–165; PULSE 56–188; TEMP 36.7; O2SAT 90–100; BMI 26.9; BMI 27.8
--- NOTE | 2024-02-19 14:12 | CT_ITS ---
[address] [address] Patient Name: QING CLARK MRN: [id number] date: 1965 Sex: M Assigned Patient Location: ER Current Patient Location: Accession/Order Number: [id number] Exam Date: 02/19/2024 15:23 Report Date: 02/19/2024 17:33 At the request of: CARLYN SAHA Procedure: CT angio abdomen pelvis EXAM: CT angio chest, CT angio abdomen pelvis HISTORY: aortic dissection COMPARISON: CT of the thoracic and lumbar spine 02/13/2024 CT of chest, abdomen and pelvis 02/13/2024. TECHNIQUE: CTA of the chest, abdomen and pelvis with intravenous contrast. Dose reduction techniques were achieved by using automated exposure control and/or adjustment of mA and/or kV according to patient size and/or use of iterative reconstruction technique. FINDINGS: TUBES AND IMPLANTS: None. CHEST: CHEST WALL AND LOWER NECK: Unremarkable. MEDIASTINUM AND TRACY: No hematoma. No enlarged lymph nodes by CT size criteria. AORTA: Mild atherosclerosis without aneurysm or dissection HEART: Mild cardiomegaly PULMONARY ARTERIES: No embolism CORONARY ARTERIES: No coronary artery calcifications. LUNG AND AIRWAYS: Patchy ground glass opacities are seen in both lower lobes. Reticular opacities are identified in both lower lobes suggestive of atelectasis . Left lower lobe subsegmental compressive atelectasis PLEURA: Small left pleural effusion. BONES: Mildly displaced fractures of the left 10th through 12th posterior ribs. No suspicious lesions. Stable multilevel compression deformities. ABDOMEN and PELVIS ABDOMINAL WALL AND SOFT TISSUES: Unremarkable. BONES: No suspicious lesions. Multilevel degenerative changes of the spine. Multilevel compression deformities, stable. ARTERIES: Mild to moderate aortoiliac atherosclerosis without aneurysm or dissection. Visceral branches, pelvic fluid visualized femoral arteries appear patent without high-grade stenosis. VEINS: Incompletely evaluated due to phase of imaging. LYMPH NODES: Unremarkable. PERITONEUM/ RETROPERITONEUM: Unremarkable. BOWEL: No obstruction. Mild to moderate diverticulosis APPENDIX: Unremarkable LIVER: No suspicious lesions. Mild contour nodularity GALLBLADDER: Unremarkable. BILE DUCTS: Not dilated SPLEEN: Unremarkable. PANCREAS: Unremarkable. ADRENALS: Unremarkable. KIDNEYS/ URETERS: No stones or hydronephrosis REPRODUCTIVE ORGANS: Unremarkable URINARY BLADDER: Unremarkable. CT/CT angio abdomen pelvis IMPRESSION: 1. No evidence of an acute aortic syndrome. No aortic aneurysm. 2. Mildly displaced subacute fractures of the left 10th through 12th posterior ribs 3. Patchy groundglass opacities are seen in both lower lobes with small left pleural effusion. This may represent mild pulmonary interstitial edema or infectious etiology. 4. Mild contour irregularity of the liver suggesting cirrhosis. 5. Mild to moderate diverticulosis. Electronically authenticated by: GUILLERMINA TALAMANTES Date: 02/19/2024 17:33
--- NOTE | 2024-02-19 14:12 | ECG_ITS ---
[facility] Test Date: 2024-02-19 Pat Name: QING CLARK Department: Room: - Gender: Male Health Education Aide: : 1965 Requested By: Ching Graham Order Number: [id number] Reading MD: KAVITHA BURTON Measurements Intervals [place] Rate: 186 P: -65692 [place]: -64967 QRS: 108 QRSD: 94 T: 33 QT: 316 QTc: 413 Interpretive Statements 1420 Undetermined rhythm (Possible supraventricular tachycardia) [address] depression 7100 Abnormal right axis deviation 9150 abnormal ECG Compared to ECG 02/13/2024 14:26:18 Sinus rhythm no longer present Sinus arrhythmia no longer present ST (T wave) deviation still present Electronically Signed On 02-21-2024 13:15:35 EDT by KAVITHA BURTON
--- NOTE | 2024-02-19 14:12 | CT_ITS ---
[address] [address] Patient Name: QING CLARK MRN: [id number] date: 1965 Sex: M Assigned Patient Location: ER Current Patient Location: Accession/Order Number: [id number] Exam Date: 02/19/2024 15:23 Report Date: 02/19/2024 17:33 At the request of: CARLYN SAHA Procedure: CT angio chest EXAM: CT angio chest, CT angio abdomen pelvis HISTORY: aortic dissection COMPARISON: CT of the thoracic and lumbar spine 02/13/2024 CT of chest, abdomen and pelvis 02/13/2024. TECHNIQUE: CTA of the chest, abdomen and pelvis with intravenous contrast. Dose reduction techniques were achieved by using automated exposure control and/or adjustment of mA and/or kV according to patient size and/or use of iterative reconstruction technique. FINDINGS: TUBES AND IMPLANTS: None. CHEST: CHEST WALL AND LOWER NECK: Unremarkable. MEDIASTINUM AND TRACY: No hematoma. No enlarged lymph nodes by CT size criteria. AORTA: Mild atherosclerosis without aneurysm or dissection HEART: Mild cardiomegaly PULMONARY ARTERIES: No embolism CORONARY ARTERIES: No coronary artery calcifications. LUNG AND AIRWAYS: Patchy ground glass opacities are seen in both lower lobes. Reticular opacities are identified in both lower lobes suggestive of atelectasis . Left lower lobe subsegmental compressive atelectasis PLEURA: Small left pleural effusion. BONES: Mildly displaced fractures of the left 10th through 12th posterior ribs. No suspicious lesions. Stable multilevel compression deformities. ABDOMEN and PELVIS ABDOMINAL WALL AND SOFT TISSUES: Unremarkable. BONES: No suspicious lesions. Multilevel degenerative changes of the spine. Multilevel compression deformities, stable. ARTERIES: Mild to moderate aortoiliac atherosclerosis without aneurysm or dissection. Visceral branches, pelvic fluid visualized femoral arteries appear patent without high-grade stenosis. VEINS: Incompletely evaluated due to phase of imaging. LYMPH NODES: Unremarkable. PERITONEUM/ RETROPERITONEUM: Unremarkable. BOWEL: No obstruction. Mild to moderate diverticulosis APPENDIX: Unremarkable LIVER: No suspicious lesions. Mild contour nodularity GALLBLADDER: Unremarkable. BILE DUCTS: Not dilated SPLEEN: Unremarkable. PANCREAS: Unremarkable. ADRENALS: Unremarkable. KIDNEYS/ URETERS: No stones or hydronephrosis REPRODUCTIVE ORGANS: Unremarkable URINARY BLADDER: Unremarkable. CT/CT angio chest IMPRESSION: 1. No evidence of an acute aortic syndrome. No aortic aneurysm. 2. Mildly displaced subacute fractures of the left 10th through 12th posterior ribs 3. Patchy groundglass opacities are seen in both lower lobes with small left pleural effusion. This may represent mild pulmonary interstitial edema or infectious etiology. 4. Mild contour irregularity of the liver suggesting cirrhosis. 5. Mild to moderate diverticulosis. Electronically authenticated by: GUILLERMINA TALAMANTES Date: 02/19/2024 17:33
--- NOTE | 2024-02-19 14:23 | ED_ITS ---
Documented by User: WALTER Payne 02/19/24 18:28 HPI HPI - General Adult General Chief complaint: Shortness of Breath/Dyspnea Stated complaint: BACK PAIN, FLANK PAIN Time Seen by Provider: 02/19/24 14:02 Source: patient Mode of arrival: Wheelchair Limitations: no limitations History of Present Illness HPI narrative: Patient is a 58-year-old male who presents to the emergency department for continued pain in the back and flank after being seen here 1 week ago after a fall at home. He sustained a fall approximately 9 to 10 feet 1 week ago and was seen in this emergency department, diagnosed with a left eighth rib fracture. He was also found to have multiple thoracic and lumbar fractures, some more remote. Patient was admitted overnight for PT/OT and pain control. He was discharged home with NSAIDs and muscle relaxant. He states since being discharged, he has had a steady increase in pain to the back and flank with no new falls or injuries. On arrival to the emergency department, he has noted to be significantly tachycardic. He states he does have chest discomfort and has a history of coronary artery disease. He is not anticoagulated. Related Data Home Medications ?Medication ?Instructions ?Recorded ?Confirmed albuterol sulfate 90 mcg/actuation 2 puff inhalation Q6H PRN 02/13/24 02/19/24 aerosol inhaler shortness of breath or wheezing alprazolam 1 mg tablet 1 mg PO TID PRN anxiety 02/13/24 02/19/24 cholecalciferol (vitamin D3) 1,250 1,250 mcg PO QWEEK 02/13/24 02/19/24 mcg (50,000 unit) capsule duloxetine 60 mg capsule,delayed 60 mg PO BID 02/13/24 02/19/24 release metoprolol succinate 50 mg 50 mg PO QAM 02/13/24 02/19/24 tablet,extended release 24 hr sucralfate 100 mg/mL oral 1 g PO ACHS 02/13/24 02/19/24 suspension tamsulosin 0.4 mg capsule 0.4 mg PO QAM 02/13/24 02/19/24 Previous Rx's ?Medication ?Instructions ?Recorded diclofenac sodium 75 mg 75 mg PO BID #30 tabs 02/14/24 tablet,delayed release tizanidine 4 mg capsule 8 mg (2 x 4 mg) PO .qhs PRN muscle 02/14/24 spasticity #20 caps Allergies Allergy/AdvReac Type Severity Reaction Status Date / Time Penicillins Allergy Severe Hives Verified 02/13/24 14:10 Opioid HPI Opioid Management Most Recent Opioid Data: Last Pain Scale 9 02/19/24 14:46 Last Pain Assessment 02/14/24 11:11 Last MAR Pain Assessment 02/19/24 14:46 Last ORT Total Score 8 02/13/24 18:49 Last ORT Risk Category High Risk 02/13/24 18:49 Review of Systems ROS Constitutional Denies: fever or chills Ears, nose, mouth, and throat Denies: throat pain or nasal congestion Cardiovascular Reports: chest pain Respiratory Denies: shortness of breath or cough Gastrointestinal Denies: abdominal pain, nausea or vomiting Musculoskeletal Reports: back pain; Denies: neck pain Integumentary/Breast Denies: rash Neurological Denies: headache or numbness in extremities Hematologic/Lymphatic Denies: easy bruising or easy bleeding PFSH PFSH Medical History (Updated 02/19/24 @ 18:14 by WALTER Payne) Closed lumbar vertebral fracture ?S32.009A - Unspecified fracture of unspecified lumbar vertebra, initial encounter for closed fracture (ICD-10) Fracture of multiple thoracic vertebrae ?S22.009A - Unspecified fracture of unspecified thoracic vertebra, initial encounter for closed fracture (ICD-10) Fracture of rib ?S22.39XA - Fracture of one rib, unspecified side, initial encounter for closed fracture (ICD-10) Fall ?W19.XXXA - Unspecified fall, initial encounter (ICD-10) Cirrhosis of liver ?K74.60 - Unspecified cirrhosis of liver (ICD-10) COPD (chronic obstructive pulmonary disease) ?J44.9 - Chronic obstructive pulmonary disease, unspecified (ICD-10) Surgical History (Updated 02/13/24 @ 18:46 by Jaleesa Saunders LPN) History of esophagogastroduodenoscopy (EGD) ?Z98.890 - Other specified postprocedural states (ICD-10) Family History (Updated 02/13/24 @ 18:46 by Jaleesa Saunders LPN) Mother Family history of COPD (chronic obstructive pulmonary disease) Family history of stroke Father Family history of hypertension Social History (Reviewed 02/19/24 @ 14:26 by ANAND Payne Smoking status: Former smoker Non-prescribed substance use: denies use Previous occupational history: disability Known occupational exposures/hazards: No Highest level of school completed/degree received: 11th grade Are you now , , , , never or living with a partner: In a typical week, how many times do you talk on the telephone with family, friends, or neighbors: 3 or more times per week How often do you get together with friends or relatives: 3 or more times per week How often do you attend zoroastrian or cheondoism services: 4 or more times per year Do you belong to any clubs or organizations such as zoroastrian groups unions, [employer] or athletic groups, or school groups: no Total score: 3 Score interpretation: A score of greater than or equal to 2 indicates the lowest level of social isolation. Little interest or pleasure in doing things: not at all Feeling down, depressed, or hopeless: not at all Feel stressed/tense/nervous/anxious/difficulty sleeping: not at all Due to disability, difficulty making decisions: No Do you think of yourself as: straight/heterosexual Gender Identity: male Exam Narrative Exam Narrative: Gen.: Awake, alert, in no distress Head: Normocephalic, atraumatic ENT: Moist mucous membranes Respiratory: No respiratory distress, lungs clear bilaterally Cardio: Tachycardia Gastrointestinal: Abdomen is soft, nondistended and nontender to palpation Extremities: Moves extremities equally, no injuries noted Psych: Normal mood and affect Neuro: No focal neuro deficit Skin: Warm, dry, intact Constitutional Vital Signs, click to edit/add: Last Vital Signs Temp 98.0 F 02/19/24 14:04 Pulse 56 L 02/19/24 18:45 Resp 21 H 02/19/24 18:45 BP 171/107 H 02/19/24 19:55 Pulse Ox 98 02/19/24 18:45 O2 Del Method Room Air 02/19/24 14:04 Course Vital Signs Vital signs: Vital Signs Temperature 98.0 F 02/19/24 14:04 Pulse Rate 101 H 02/19/24 14:04 Respiratory Rate 18 02/19/24 14:04 Blood Pressure 200/100 H 02/19/24 14:04 Pulse Oximetry 98 02/19/24 14:04 Oxygen Delivery Method Room Air 02/19/24 14:04 Temperature 98.0 F 02/19/24 14:04 Pulse Rate 56 L 02/19/24 18:45 Respiratory Rate 21 H 02/19/24 18:45 Blood Pressure 171/107 H 02/19/24 19:55 Pulse Oximetry 98 02/19/24 18:45 Oxygen Delivery Method Room Air 02/19/24 14:04 Medical Decision Making MDM Narrative Medical decision making narrative: Initial cardiac monitoring showed significant tachycardia with heart rate between 1 70-1 80. Patient was not hypotensive or altered. Patient was moved to a trauma bay, IV established with lab draw and he will be sent for CT angio of the chest/abdomen/pelvis. On transfer of the patient and initiation of fluids, repeat EKG shows heart rate has slowed to 130 and shows sinus tachycardia. Patient will be treated with IV fluids and Lopressor at this time pending the rest of his evaluation. 1810: Patient given pain meds with significant improvement. Labs are grossly stable. Ct angio of the chest/abd/pelvis with subacute Right 10-12th rib fractures. Also noted is early infiltrate vs atelectasis. Patient treated with levaquin due to immobilization over the last week and concern for possible early pneumonia. Patient will be admitted for cardiac monitoring, pain control. Vital signs have improved and patient is stable, resting comfortably at time of evaluation. SHARED APC VISIT, PHYSICIAN ATTESTATION: [id number] I performed a substantive part of the MDM during the patient?s E/M visit. I personally evaluated and examined the patient. I personally made or approved the documented management plan and acknowledge its risk of complications. Medical Records Medical records reviewed: Yes I reviewed the patient's medical records Lab Data Lab results reviewed: Yes I reviewed the patient's lab results Labs: Lab Results 02/19/24 02/19/24 Range/Units 14:18 15:45 WBC 14.9 H (4.0-11.0) 10^3/uL RBC 5.37 (4.70-6.10) 10^6/uL Hgb 16.3 (14.0-18.0) g/dL Hct 47.1 (42.0-54.0) % MCV 87.7 (80.0-94.0) fL MCH 30.4 (25.9-34.0) pg MCHC 34.6 (29.9-35.2) g/dL RDW 14.1 (11.0-15.0) % Plt Count 287 (150-450) 10^3/uL MPV 10.6 (9.5-13.5) fL Neut % (Auto) 65.7 (43.0-75.0) % Lymph % (Auto) 24.3 (20.5-60.0) % Dunn % (Auto) 8.2 (1.7-12.0) % Eos % (Auto) 0.8 L (0.9-7.0) % Baso % (Auto) 0.6 (0.2-2.0) % Neut # (Auto) 9.8 H (1.4-6.5) 10^3/uL Lymph # (Auto) 3.6 (1.2-3.8) 10^3/uL Dunn # (Auto) 1.2 H (0.3-0.8) 10^3/uL Eos # (Auto) 0.1 (0.0-0.7) 10^3/uL Baso # (Auto) 0.1 (0.0-0.1) 10^3/uL Abs Immat Gran (auto) 0.06 H (0.00-0.03) 10^3/uL Imm/Tot Granulo (auto) 0.4 (0.0-0.5) % VBG pH 7.412 (7.330-7.430) VBG pCO2 40.0 (40.0-52.0) mmHg Sodium 139 (136-145) mmol/L Potassium 3.8 (3.5-5.1) mmol/L Chloride 102 (98-107) mmol/L Carbon Dioxide 26.1 (21.0-32.0) mmol/L Anion Gap 14.7 BUN 8.0 (7.0-18.0) mg/dL Creatinine 0.74 (0.70-1.30) mg/dL Est GFR ( Amer) >60 (>=60) Est GFR (Non-Af Amer) >60 (>=60) BUN/Creatinine Ratio 10.8 Glucose 127 H (74-106) mg/dL Lactate 2.0 (0.4-2.0) mmol/L Calcium 9.1 (8.5-10.1) mg/dL Magnesium 1.8 (1.8-2.4) mg/dL Total Bilirubin 0.8 (0.2-1.0) mg/dL AST 57 H (15-37) U/L ALT 77 H (16-63) U/L Alkaline Phosphatase 86 (46-116) U/L Troponin I High Sens 4.4 (4.0-76.1) pg/mL Total Protein 8.2 (6.4-8.2) g/dL Albumin 4.1 (3.4-5.0) g/dL Globulin 4.1 g/dL Albumin/Globulin Ratio 1.0 TSH 1.778 (0.358-3.740) uIU/mL Urine Color Lt. yellow (YELLOW) Urine Clarity Clear (CLEAR) Urine pH 7.0 (5.0-9.0) Ur Specific [place] <=1.005 A (1.005-1.025) Urine Protein Negative (NEG/TRACE) mg/dL Urine Glucose (UA) Negative (NEGATIVE) mg/dL Urine Ketones Negative (NEGATIVE) mg/dL Urine Occult Blood Negative (NEGATIVE) Urine Nitrite Negative (NEGATIVE) Urine Bilirubin Negative (NEGATIVE) Urine Urobilinogen 0.2 (0.2-1.0) EU/dL Ur Leukocyte Esterase Negative (NEGATIVE) Ethanol Quant <3 mg/dL Imaging Data CT scan - chest: Attestation: I have reviewed the pertinent imaging results. Radiologist's impression: ITS Impressions Abdomen/Pelvis CTA 02/19/24 14:12 IMPRESSION: 1. No evidence of an acute aortic syndrome. No aortic aneurysm. 2. Mildly displaced subacute fractures of the left 10th through 12th posterior ribs 3. Patchy groundglass opacities are seen in both lower lobes with small left pleural effusion. This may represent mild pulmonary interstitial edema or infectious etiology. 4. Mild contour irregularity of the liver suggesting cirrhosis. 5. Mild to moderate diverticulosis. Electronically authenticated by: GUILLERMINA TALAMANTES Date: 02/19/2024 17:33 Chest CTA 02/19/24 14:12 IMPRESSION: 1. No evidence of an acute aortic syndrome. No aortic aneurysm. 2. Mildly displaced subacute fractures of the left 10th through 12th posterior ribs 3. Patchy groundglass opacities are seen in both lower lobes with small left pleural effusion. This may represent mild pulmonary interstitial edema or infectious etiology. 4. Mild contour irregularity of the liver suggesting cirrhosis. 5. Mild to moderate diverticulosis. Electronically authenticated by: GUILLERMINA TALAMANTES Date: 02/19/2024 17:33 ECG Data Attestation: I personally reviewed and interpreted this ECG as follows: (EKG #1 at 14: 09. Undetermined rhythm at a rate of 186, no obvious acute ST elevation or ectopy. EKG reviewed by attending physician. EKG #2 at 14: 24. Sinus tachycardia at a rate of [address] elevation or ectopy. EKG reviewed by attending physician) Discharge Plan Discharge Chief Complaint: Shortness of Breath/Dyspnea Clinical Impression: Tachycardia, Acute flank pain, Multiple fractures of ribs Patient Disposition: Admitted As Inpatient Time of Disposition Decision: 18:24 Documented by User: Jose Montano MD 02/19/24 19:56 HPI HPI - General Adult General Chief complaint: Shortness of Breath/Dyspnea Stated complaint: BACK PAIN, FLANK PAIN Time Seen by Provider: 02/19/24 14:02 Related Data Home Medications ?Medication ?Instructions ?Recorded ?Confirmed albuterol sulfate 90 mcg/actuation 2 puff inhalation Q6H PRN 02/13/24 02/19/24 aerosol inhaler shortness of breath or wheezing alprazolam 1 mg tablet 1 mg PO TID PRN anxiety 02/13/24 02/19/24 cholecalciferol (vitamin D3) 1,250 1,250 mcg PO QWEEK 02/13/24 02/19/24 mcg (50,000 unit) capsule duloxetine 60 mg capsule,delayed 60 mg PO BID 02/13/24 02/19/24 release metoprolol succinate 50 mg 50 mg PO QAM 02/13/24 02/19/24 tablet,extended release 24 hr sucralfate 100 mg/mL oral 1 g PO ACHS 02/13/24 02/19/24 suspension tamsulosin 0.4 mg capsule 0.4 mg PO QAM 02/13/24 02/19/24 Previous Rx's ?Medication ?Instructions ?Recorded diclofenac sodium 75 mg 75 mg PO BID #30 tabs 02/14/24 tablet,delayed release tizanidine 4 mg capsule 8 mg (2 x 4 mg) PO .qhs PRN muscle 02/14/24 spasticity #20 caps Allergies Allergy/AdvReac Type Severity Reaction Status Date / Time Penicillins Allergy Severe Hives Verified 02/13/24 14:10 Opioid HPI Opioid Management Most Recent Opioid Data: Last Pain Scale 9 02/19/24 14:46 Last Pain Assessment 02/14/24 11:11 Last MAR Pain Assessment 02/19/24 14:46 Last ORT Total Score 8 02/13/24 18:49 Last ORT Risk Category High Risk 02/13/24 18:49 PFSH PFSH Medical History (Updated 02/19/24 @ 18:14 by WALTER Payne) Closed lumbar vertebral fracture ?S32.009A - Unspecified fracture of unspecified lumbar vertebra, initial encounter for closed fracture (ICD-10) Fracture of multiple thoracic vertebrae ?S22.009A - Unspecified fracture of unspecified thoracic vertebra, initial encounter for closed fracture (ICD-10) Fracture of rib ?S22.39XA - Fracture of one rib, unspecified side, initial encounter for closed fracture (ICD-10) Fall ?W19.XXXA - Unspecified fall, initial encounter (ICD-10) Cirrhosis of liver ?K74.60 - Unspecified cirrhosis of liver (ICD-10) COPD (chronic obstructive pulmonary disease) ?J44.9 - Chronic obstructive pulmonary disease, unspecified (ICD-10) Surgical History (Updated 02/13/24 @ 18:46 by Jaleesa Saunders LPN) History of esophagogastroduodenoscopy (EGD) ?Z98.890 - Other specified postprocedural states (ICD-10) Family History (Updated 02/13/24 @ 18:46 by Jaleesa Saunders LPN) Mother Family history of COPD (chronic obstructive pulmonary disease) Family history of stroke Father Family history of hypertension Social History Smoking status: Former smoker Non-prescribed substance use: denies use Previous occupational history: disability Known occupational exposures/hazards: No Highest level of school completed/degree received: 11th grade Are you now , , , , never or living with a partner: In a typical week, how many times do you talk on the telephone with family, friends, or neighbors: 3 or more times per week How often do you get together with friends or relatives: 3 or more times per week How often do you attend zoroastrian or cheondoism services: 4 or more times per year Do you belong to any clubs or organizations such as zoroastrian groups unions, fraternal or athletic groups, or school groups: no Total score: 3 Score interpretation: A score of greater than or equal to 2 indicates the lowest level of social isolation. Little interest or pleasure in doing things: not at all Feeling down, depressed, or hopeless: not at all Feel stressed/tense/nervous/anxious/difficulty sleeping: not at all Due to disability, difficulty making decisions: No Do you think of yourself as: straight/heterosexual Gender Identity: male Exam Constitutional Vital Signs, click to edit/add: Last Vital Signs Temp 98.0 F 02/19/24 14:04 Pulse 56 L 02/19/24 18:45 Resp 21 H 02/19/24 18:45 BP 171/107 H 02/19/24 19:55 Pulse Ox 98 02/19/24 18:45 O2 Del Method Room Air 02/19/24 14:04 Course Vital Signs Vital signs: Vital Signs Temperature 98.0 F 02/19/24 14:04 Pulse Rate 101 H 02/19/24 14:04 Respiratory Rate 18 02/19/24 14:04 Blood Pressure 200/100 H 02/19/24 14:04 Pulse Oximetry 98 02/19/24 14:04 Oxygen Delivery Method Room Air 02/19/24 14:04 Temperature 98.0 F 02/19/24 14:04 Pulse Rate 56 L 02/19/24 18:45 Respiratory Rate 21 H 02/19/24 18:45 Blood Pressure 171/107 H 02/19/24 19:55 Pulse Oximetry 98 02/19/24 18:45 Oxygen Delivery Method Room Air 02/19/24 14:04 Medical Decision Making MDM Narrative Medical decision making narrative: Initial cardiac monitoring showed significant tachycardia with heart rate between 170-180. Patient was not hypotensive or altered. Patient was moved to a trauma bay, IV established with lab draw and he will be sent for CT angio of the chest/abdomen/pelvis. On transfer of the patient and initiation of fluids, repeat EKG shows heart rate has slowed to 130 and shows sinus tachycardia. Patient will be treated with IV fluids and Lopressor at this time pending the rest of his evaluation. 1810: Patient given pain meds with significant improvement. Labs are grossly stable. Ct angio of the chest/abd/pelvis with subacute Right 10-12th rib fractures. Also noted is early infiltrate vs atelectasis. Patient treated with levaquin due to immobilization over the last week and concern for possible early pneumonia. Patient will be admitted for cardiac monitoring, pain control. Vital signs have improved and patient is stable, resting comfortably at time of evaluation. SHARED APC VISIT, PHYSICIAN ATTESTATION: [id number] I performed a substantive part of the MDM during the patient?s E/M visit. I personally evaluated and examined the patient. I personally made or approved the documented management plan and acknowledge its risk of complications. I, Dr Montano, have reviewed the above progress note and course of action in the ER; agree with the above. I have personally seen and evaluated this patient, gone over history and physical, and discussed disposition and treatment plan with the patient. Critical care time 35 minutes exclusive from separate billable procedures that were performed. The following was considered in the determination of critical care but not limited to the level of medical decision making, intensive cardiac and/or respiratory monitoring, frequent vital sign monitoring, evaluation of laboratory studies, evaluation of radiographic studies, oxygen monitoring, and constant monitoring and speaking to family at bedside Lab Data Labs: Lab Results 02/19/24 02/19/24 Range/Units 14:18 15:45 WBC 14.9 H (4.0-11.0) 10^3/uL RBC 5.37 (4.70-6.10) 10^6/uL Hgb 16.3 (14.0-18.0) g/dL Hct 47.1 (42.0-54.0) % MCV 87.7 (80.0-94.0) fL MCH 30.4 (25.9-34.0) pg MCHC 34.6 (29.9-35.2) g/dL RDW 14.1 (11.0-15.0) % Plt Count 287 (150-450) 10^3/uL MPV 10.6 (9.5-13.5) fL Neut % (Auto) 65.7 (43.0-75.0) % Lymph % (Auto) 24.3 (20.5-60.0) % Dunn % (Auto) 8.2 (1.7-12.0) % Eos % (Auto) 0.8 L (0.9-7.0) % Baso % (Auto) 0.6 (0.2-2.0) % Neut # (Auto) 9.8 H (1.4-6.5) 10^3/uL Lymph # (Auto) 3.6 (1.2-3.8) 10^3/uL Dunn # (Auto) 1.2 H (0.3-0.8) 10^3/uL Eos # (Auto) 0.1 (0.0-0.7) 10^3/uL Baso # (Auto) 0.1 (0.0-0.1) 10^3/uL Abs Immat Gran (auto) 0.06 H (0.00-0.03) 10^3/uL Imm/Tot Granulo (auto) 0.4 (0.0-0.5) % VBG pH 7.412 (7.330-7.430) VBG pCO2 40.0 (40.0-52.0) mmHg Sodium 139 (136-145) mmol/L Potassium 3.8 (3.5-5.1) mmol/L Chloride 102 (98-107) mmol/L Carbon Dioxide 26.1 (21.0-32.0) mmol/L Anion Gap 14.7 BUN 8.0 (7.0-18.0) mg/dL Creatinine 0.74 (0.70-1.30) mg/dL Est GFR ( Amer) >60 (>=60) Est GFR (Non-Af Amer) >60 (>=60) BUN/Creatinine Ratio 10.8 Glucose 127 H (74-106) mg/dL Lactate 2.0 (0.4-2.0) mmol/L Calcium 9.1 (8.5-10.1) mg/dL Magnesium 1.8 (1.8-2.4) mg/dL Total Bilirubin 0.8 (0.2-1.0) mg/dL AST 57 H (15-37) U/L ALT 77 H (16-63) U/L Alkaline Phosphatase 86 (46-116) U/L Troponin I High Sens 4.4 (4.0-76.1) pg/mL Total Protein 8.2 (6.4-8.2) g/dL Albumin 4.1 (3.4-5.0) g/dL Globulin 4.1 g/dL Albumin/Globulin Ratio 1.0 TSH 1.778 (0.358-3.740) uIU/mL Urine Color Lt. yellow (YELLOW) Urine Clarity Clear (CLEAR) Urine pH 7.0 (5.0-9.0) Ur Specific [place] <=1.005 A (1.005-1.025) Urine Protein Negative (NEG/TRACE) mg/dL Urine Glucose (UA) Negative (NEGATIVE) mg/dL Urine Ketones Negative (NEGATIVE) mg/dL Urine Occult Blood Negative (NEGATIVE) Urine Nitrite Negative (NEGATIVE) Urine Bilirubin Negative (NEGATIVE) Urine Urobilinogen 0.2 (0.2-1.0) EU/dL Ur Leukocyte Esterase Negative (NEGATIVE) Ethanol Quant <3 mg/dL Imaging Data CT scan - chest: Radiologist's impression: ITS Impressions Abdomen/Pelvis CTA 02/19/24 14:12 IMPRESSION: 1. No evidence of an acute aortic syndrome. No aortic aneurysm. 2. Mildly displaced subacute fractures of the left 10th through 12th posterior ribs 3. Patchy groundglass opacities are seen in both lower lobes with small left pleural effusion. This may represent mild pulmonary interstitial edema or infectious etiology. 4. Mild contour irregularity of the liver suggesting cirrhosis. 5. Mild to moderate diverticulosis. Electronically authenticated by: [employer] Date: 02/19/2024 17:33 Chest CTA 02/19/24 14:12 IMPRESSION: 1. No evidence of an acute aortic syndrome. No aortic aneurysm. 2. Mildly displaced subacute fractures of the left 10th through 12th posterior ribs 3. Patchy groundglass opacities are seen in both lower lobes with small left pleural effusion. This may represent mild pulmonary interstitial edema or infectious etiology. 4. Mild contour irregularity of the liver suggesting cirrhosis. 5. Mild to moderate diverticulosis. Electronically authenticated by: [employer] Date: 02/19/2024 17:33 ECG Data Interpretation: Rhythm strip at 50 mm/s. Tachycardia, no obvious shortened IA interval, no delta wave, no signs of WPW. RR intervals are equal Discharge Plan Discharge Chief Complaint: Shortness of Breath/Dyspnea Clinical Impression: Tachycardia, Acute flank pain, Multiple fractures of ribs Patient Disposition: Admitted As Inpatient Time of Disposition Decision: 18:24
[2024-02-19 14:26] LABS: Basophils Absolute Auto 0.1 10^3/uL (0.0-0.1); Basophils Percent Auto 0.6 % (0.2-2.0); Eosinophils Absolute Auto 0.1 10^3/uL (0.0-0.7); Eosinophils Percent Auto 0.8 % (0.9-7.0); Hematocrit 47.1 % (42.0-54.0); Hemoglobin 16.3 g/dL (14.0-18.0); Immature Granulocytes Abs Auto 0.06 10^3/uL (0.00-0.03); Immature Granulocytes Pct Auto 0.4 % (0.0-0.5); Lymphocytes Absolute Auto 3.6 10^3/uL (1.2-3.8); Lymphocytes Percent Auto 24.3 % (20.5-60.0); Mean Corpuscular HGB Conc 34.6 g/dL (29.9-35.2); Mean Corpuscular Hemoglobin 30.4 pg (25.9-34.0); Mean Corpuscular Volume 87.7 fL (80.0-94.0); Mean Platelet Volume 10.6 fL (9.5-13.5); Monocytes Absolute Auto 1.2 10^3/uL (0.3-0.8); Monocytes Percent Auto 8.2 % (1.7-12.0); Neutrophils Absolute Auto 9.8 10^3/uL (1.4-6.5); Neutrophils Percent Auto 65.7 % (43.0-75.0); Platelet Count 287 10^3/uL (150-450); Red Blood Count 5.37 10^6/uL (4.70-6.10); Red Cell Distribution Width 14.1 % (11.0-15.0); White Blood Count 14.9 10^3/uL (4.0-11.0)
[2024-02-19 14:27] LABS: pH VBG 7.412 (7.330-7.430)
[2024-02-19 14:41] LABS: Alanine Aminotransferase 77 U/L (16-63); Albumin Level 4.1 g/dL (3.4-5.0); Alkaline Phosphatase 86 U/L (46-116); Anion Gap 14.7; Aspartate Amino Transferase 57 U/L (15-37); BUN Creatinine Ratio 10.8; Bilirubin Total 0.8 mg/dL (0.2-1.0); Calcium 9.1 mg/dL (8.5-10.1); Carbon Dioxide 26.1 mmol/L (21.0-32.0); Chloride 102 mmol/L (98-107); Estimated GFR (African America >60 (>=60); Estimated GFR (Non-African Ame >60 (>=60); Globulin 4.1 g/dL; Glucose 127 mg/dL (74-106); Potassium 3.8 mmol/L (3.5-5.1); Sodium 139 mmol/L (136-145); Total Protein 8.2 g/dL (6.4-8.2)
[2024-02-19] MEDS: 0.9 % SODIUM CHLORIDE 1,000 ML 999 ML IV (14:42)
[2024-02-19] MEDS: METOPROLOL TARTRATE 5 MG/5 ML VIAL IVP (14:42)
[2024-02-19] MEDS: ORPHENADRINE 60 MG/ 2 ML VIAL IV (14:46)
[2024-02-19] MEDS: ONDANSETRON PF 4 MG/2 ML VIAL IV (14:46)
[2024-02-19] MEDS: HYDROMORPHONE HCL 1 MG/ML CARTRIDGE IVP (14:46)
[2024-02-19 14:50] LABS: Magnesium 1.8 mg/dL (1.8-2.4); Thyroid Stimulating Hormone 1.778 uIU/mL (0.358-3.740); Troponin I High Sensitivity 4.4 pg/mL (4.0-76.1)
--- NOTE | 2024-02-19 14:52 | PC.NURSE ---
[id number] this nnurse one on one with patient during this time pt in rm 11- this nurse hooks patient up to the monitor hr 190/min pt moved to rm 5 18g to left ac and rt ac- normal saline initiated and hr came down on own at 130s bilat manual bp 200/110 rates pain to chest 8/10 lopressor given 5mg hr down to 80's pt denies chest pain at this time pt states he needs to go to urinate bladder scanned for 584cc residual urine - pt asked if he can try to stand to void pt stands and voids 350 clear yellow urine medicated as ordered for back pain bilat manual bp 170/110
[2024-02-19 14:53] LABS: Ethanol <3 mg/dL
[2024-02-19 15:59] LABS: Bilirubin Urine NEGATIVE (NEGATIVE); Blood Urine NEGATIVE (NEGATIVE); Clarity Urine CLEAR (CLEAR); Color Urine LT. YELLOW (YELLOW); Glucose Urine UA NEGATIVE (NEGATIVE); Ketones Urine NEGATIVE (NEGATIVE); Leukocyte Esterase Urine NEGATIVE (NEGATIVE); Nitrite Urine NEGATIVE (NEGATIVE); Protein Urine NEGATIVE (NEG/TRACE); Specific Gravity Urine <=1.005 (1.005-1.025); Urobilinogen Urine 0.2 EU/dL (0.2-1.0)
[2024-02-19 16:00] LABS: Urine Microscopic Indicated NO
[2024-02-19] MEDS: 0.9 % SODIUM CHLORIDE 1,000 ML 200 ML IV (16:01)
[2024-02-19] MEDS: LEVOFLOXACIN IN DEXTROSE 5 % 750 MG/150 ML IV.SOLN 100 MG IV (17:59)
--- NOTE | 2024-02-19 18:10 | ECG_ITS ---
[facility] Test Date: 2024-02-19 Pat Name: QING CLARK Department: Room: 218 Gender: Male Mail Rider: : 1965 Requested By: [id number] Order Number: [id number] Reading MD: KAVITHA BURTON Measurements Intervals [place] Rate: 126 P: 79 AK: 186 QRS: 112 QRSD: 90 T: 39 QT: 294 QTc: 369 Interpretive Statements 1120 Sinus tachycardia 5120 Possible right ventricular hypertrophy 9140 abnormal rhythm ECG Compared to ECG 02/19/2024 14:09:56 ST (T wave) deviation no longer present Right-axis deviation no longer present Electronically Signed On 02-21-2024 13:15:45 EDT by KAVITHA BURTON
[2024-02-19] MEDS: ENALAPRILAT DIHYDRATE 1.25 MG/ML VIAL IV (19:08)
[2024-02-19] MEDS: FENTANYL CITRATE/PF 100 MCG/2 ML VIAL 50 MCG IV (19:18)
[2024-02-19] MEDS: HYDRALAZINE HCL 20 MG/ML VIAL IVP (19:48)
--- OUTSIDE RECORDS SUMMARY | 2024-02-19 20:11 | XMS_ITS | CCD ---
Author Organization [facility] Care Team Providers Care [employer] Operator Name Role Phone MARIA E GRAHAM Admitting Unavailable GRAHAMMARIA E Attending Unavailable GRAHAM, MARIA E Consulting Unavailable GRAHAM, MARIA E Primary Care Unavailable GRAHAM, MARIA E Admitting Unavailable GRAHAM, MARIA E Attending Unavailable Cristy Cobb Consulting Unavailable GRAHAM, MARIA E Consulting Unavailable GRAHAM, MARIA E Admitting Unavailable GRAHAM, MARIA E Attending Unavailable GRAHAM, MARIA E Consulting Unavailable KASSANDRA MOON Primary Care Unavailable SANTOS, MARIA E Primary Care Unavailable XANDER, DR BESSY Townsend Attending Unavailable XANDER, DR BESSY Townsend Consulting Unavailable XANDER, DR BESSY Townsend Admitting Unavailable LEONARD, DR CHRISTOPHER Phan Consulting Unavailable KASSANDRA MOON Primary Care Physician MARIA E GRAHAM Primary Care Physician Santos WATERWORKS OPERATOR-Maria E NIEVES Primary Care Provid er MARIA E GRAHAM Referring Unavailable GRAHAMMARIA E JOSE Primary Care Unavailable MARIA E GRAHAM Referring Unavailable GRAHAMMARIA E JOSE Primary Care Unavailable MARIA E GRAHAM Primary Care Unavailable JUAN HUNT Attending Unavailable MARIA E GRAHAM Referring Unavailable GRAHAMMARIA E Primary Care Unavailable GRAHAM, MARIA E Primary Care Unavailable SALAM, Cristo Admitting Unavailable SALAM, Cristo Attending Unavailable Roxie Wang Attending Unavailable GRAHAM, MARIA E Primary Care Unavailable GRAHAM, MARIA E Primary Care Unavailable Yvette Doran Attending Unavailable GRAHAM, MARIA E Primary Care Unavailable SALAM, Lemons Admitting Unavailable SALAM, Lemons Attending Unavailable GALLOAM, Cristo Referring Unavailable MARIA E GRHAAM Attending Unavailable MARIA E GRAHAM Referring Unavailable GRAHAM, MARIA E Hernandez Primary Care Unavailable GRAHAM, MARIA E J Attending Unavailable MARIA E GRAHAM Referring Unavailable MARIA E GRAHAM Primary Care Unavailable MARIA E GRAHAM Attending Unavailable MARIA E GRAHAM Referring Unavailable MARIA E GRAHAM Primary Care Unavailable Allergies Allergy Classification Reported Allergen(s) Allergy Type Date of Onset Reaction(s) Facility Penicillins (antibiotic) (1 source) Penicillins Drug Allergy 03-11-2014 [facility] Repository (20 sources) Penicillins; Translations: [penicillins] Drug allergy 03-21-2019 [facility] Medications Current Medications Medication Drug Class(es) Dates Sig (Normalized) Sig (Original) [id number] 200 actuat albuterol 0.09 mg/actuat metered dose inhaler (15 sources) beta2-Adrenergic Agonist Start: 04-25-2023 End: 10-02-2023 take 2 puff(s) by mouth every six hours as needed for wheezing albuterol (VENTOLIN HFA) 90 mcg/actuation inhaler Indications: COPD mixed type ([facility]) INHALE 2 PUFFS BY MOUTH EVERY 6 HOURS NEEDED FOR WHEEZING and SHORTNESS OF BREATH 18 g 1 10/02/2023 Active Start: 09-07-2020 take 3 mL by inhalat ion every six hours as needed for wheezing albuterol (PROVENTIL,VENTOLIN) 2.5 mg /3 mL (0.083 %) nebulizer solution Indications: Upper respiratory tract infection, unspecified type , COPD with acute exacerbation ([facility]) , Dyspnea on exertion Inhale 3 mL [...] mg / naloxone 2 mg sublingual film (11 sources) Partial Opioid Agonist, Opioid Antagonist Start: [...] DULoxetine 60 mg delayed release oral capsule (20 sources) Serotonin and Norepinephrine Reuptake Inhibitor Start: 05-18-2023 End: 08-09-2023 take 1 capsule by mouth in the morning, then take 1 capsule by mouth at bedtime DULoxetine (CYMBALTA) 60 mg capsule Indications: Generalized anxiety disorder with panic attacks , Current moderate episode of major depressive disorder without prior episode ([facility]) Take 1 capsule (60 mg total) [...] Status: Ordered LORazepam 1 mg oral tablet (13 sources) Benzodiazepine Start: 05-22-2017 lorazepam 1 mg oral tablet Refills(s) 0 Start Date: 05/22/17 Status: Ordered omeprazole 40 mg delayed release oral capsule (7 sources) Proton Pump Inhibitor Start: 03-01-2023 End: 08-09-2023 take 1 capsule by mouth once daily omeprazole 40 mg Cap-DR 40 mg = 1 cap(s), Oral, Daily, # 30 cap(s), Refills(s) 1, Pharmacy: [id number], 181, cm, 03/01/23 9:09:00 EDT, Height/Length Dosing, 81.1, kg, 03/01/23 9:09:00 EDT, Weight Dosing Start Date: 03/01/23 Status: Ordered sucralfate 100 mg/ml oral suspension (2 sources) Aluminum Complex Start: 02-08-2024 End: 02-22-2024 take 1 g by mouth four times daily Carafate 1 g/10 mL Susp-Oral 1 gm = 10 mL, Oral, QID, X 14 day(s), # 560 mL, Refills(s) 0, Pharmacy: [facility] #[facility], 181, cm, 02/08/24 13:52:00 EDT, Height/Length Dosing, 92.6, kg, 02/08/24 13:52:00 EDT, Weight Dosing Start Date: 02/08/24 Stop Date: 02/22/24 Status: Ordered tamsulosin hydrochloride 0.4 mg oral capsule (18 sources) alpha-Adrenergic Rita Start: 08-10-2022 End: 08-09-2023 take 1 capsule by mouth once daily Flomax 0.4 mg Cap 0.4 mg = 1 cap(s), Oral, Daily, Refills(s) 0, Bladder problems Start Date: 08/10/22 Status: Ordered Ventolin HFA 90 mcg/inh Aerosol-Adpt (11 sources) Start: 08-08-2022 take 1 puff(s) by inhalation once for wheezing Ventolin HFA 90 mcg/inh Aerosol-Adpt 1 puff(s), Inhalation, Once for wheezing, 18 gram, Refill(s) 0 Start Date: 08/08/22 Status: Ordered Completed/Discontinued Medications Medication Drug Class(es) Dates Sig (Normalized) Sig (Original) 24 hr metoprolol succinate 50 mg extended release oral tablet (12 sources) beta-Adrenergic Rita Start: 05-18-2023 End: 08-09-2023 take 1 tablet by mouth every twenty-four hours in the morning metoprolol succinate XL (TOPROL XL) 50 mg 24 hr tablet Indications: Essential hypertension Take 1 tablet (50 mg total) by mouth in the morning. 90 tablet 1 05/18/2023 08/09/2023 Discontinued (Therapy completed) Start: 08-10-2022 take 2 tablets by mo [facility] once daily metoprolol succinate 25 mg oral tablet, extended release 50 mg, Oral, Daily, Refills(s) 0 Start Date: 08/10/22 Status: Ordered Problems Active Problems Problem Classification Problem Date Documented Date Episodic/Chronic Anxiety disorders (16 sources) Generalized anxiety disorder; Translations: [Generalized anxiety disorder] Onset: 03-24-2019 07-24-2023 Chronic Cardiac and circulatory congenital anomalies (3 sources) Arteriovenous malformation of duodenum 04-13-2023 Chronic E Codes: Fall (1 source) Unspecified fall, initial encounter; Translations: [UNSPECIFIED FALL INITIAL ENCOUNTER] Onset: 12-30-2020 Episodic Essential hypertension (10 sources) Essential (primary) hypertension; Translations: [Essential hypertension] Onset: 04-07-2019 04-07-2019 Chronic Gastroduodenal ulcer (except hemorrhage) (10 sources) Gastric ulcer; Translations: [Gastric ulcer, unspecified as acute or chronic, without hemorrhage or perforation] Onset: 04-13-2023 Chronic Genitourinary congenital anomalies (2 sources) Retractile testis; Translations: [Unspecified undescended testicle, unilateral] Onset: 12-30-2020 Chronic Genitourinary symptoms and ill-defined conditions (1 source) Poor urinary stream; Translations: [Poor urinary stream] Onset: 02-08-2024 Episodic Hepatitis (20 sources) Chronic viral hepatitis C; Translations: [Chronic active hepatitis C] Onset: 06-29-2022 Chronic Hepatitis (10 sources) Viral hepatitis C; Translations: [Unspecified viral hepatitis C without hepatic coma] Onset: 12-29-2022 Episodic Hyperplasia of prostate (2 sources) Weak urinary stream due to benign prostatic hypertrophy; Translations: [Benign prostatic hyperplasia with lower urinary tract symptoms] Onset: 02-08-2024 08-09-2023 Chronic Immunizations and screening for infectious disease (7 sources) Contact with and (suspected) exposure to other viral communicable diseases; Translations: [Abnormal finding on evaluation procedure] Onset: 06-11-2020 Episodic Mood disorders (10 sources) Moderate major depression, single episode; Translations: [Major depressive disorder, single episode, moderate] Onset: 03-24-2019 12-11-2019 Chronic Nutritional deficiencies (3 sources) Vitamin D deficiency; Translations: [Vitamin D deficiency, unspecified] Onset: 08-09-2023 08-09-2023 Chronic Other and unspecified benign neoplasm (1 source) Polyp of colon; Translations: [Polyp of colon] Onset: 08-08-2022 Episodic Other and unspecified benign neoplasm (1 source) Benign neoplasm of colon; Translations: [Benign neoplasm of colon, unspecified] Onset: 12-29-2022 Episodic Other and unspecified benign neoplasm (15 sources) Adenomatous polyp of colon ; Translations: [Benign neoplasm of colon, unspecified] Onset: 02-01-2023 12-29-2022 Episodic Other and unspecified benign neoplasm (3 sources) History of polyp of colon; Translations: [Personal history of colonic polyps] Onset: 02-08-2024 Episodic Other disorders of stomach and duodenum (1 source) Angiodysplasia of stomach; Translations: [Angiodysplasia of stomach and duodenum without bleeding] Onset: 04-13-2023 Episodic Other disorders of stomach and duodenum (6 sources) Arteriovenous malformation of duodenum; Translations: [Angiodysplasia of stomach and duodenum without bleeding] Onset: 08-09-2023 08-09-2023 Episodic Other infections; including parasitic (1 source) H/O: infectious disease; Translations: [Personal history of other infectious and parasitic diseases] Onset: 02-08-2024 Episodic Other infections; including parasitic (2 sources) History of hepatitis C 02-08-2024 Episodic Other liver diseases (3 sources) Cirrhosis of liver; Translations: [Other cirrhosis of liver] Onset: 12-29-2022 Chronic Other male genital disorders (1 source) Right testicular pain; Translations: [Right testicular pain] Onset: 11-09-2023 Episodic Other non-traumatic joint disorders (4 sources) Pain in left wrist; Translations: [PAIN IN LEFT WRIST] Onset: 12-25-2020 Episodic Other nutritional; endocrine; and metabolic disorders (3 sources) Loss of appetite; Translations: [Anorexia] Onset: 02-08-2024 Episodic Residual codes; unclassified (1 source) Procedure and treatment not carried out because of patient's decision for unspecified reasons; Translations: [Procedure and treatment not carried out because of patient's decision for unspecified reasons] Onset: 11-09-2023 Episodic Substance-related disorders (13 sources) Smoker 05-22-2017 Chronic Comment on above: Added secondary to d ocumentation in Social History. Unclassified (13 sources) Patient encounter status 06-29-2022 Unclassified (1 source) Testicle Pain Onset: 11-09-2023 Unclassified (1 source) RT TESTICLE PAIN Onset: 11-09-2023 Unclassified (1 source) controlled substance Onset: 11-09-2023 Viral infection (3 sources) Herpes zoster without complication; Translations: [Zoster without complications] Onset: 02-08-2024 Episodic Past or Other Problems Problem Classification Problem [...] sources) Melena; Translations: [MELENA] Onset: 09-13-2020 Episodic Mood disorders (7 sources) Mood disorders Onset: 05-18-2023 Resolved: 08-09-2023 05-18-2023 Other aftercare (2 sources) senior care (current) use of opiate analgesic; Translations: [senior care (current) use of opiate analgesic] Onset: 11-09-2023 Episodic Other gastrointestinal disorders (1 source) Diarrhea, [...] future visit, Lab Collect, Compensated HCV cirrhosis [facility] Gastroenterology Office/Clin ic Noteon 02-08-2024 Gastroenterology [...] snare. He will repeat a colonoscopy in 2030. He has no family history of colon [...] old male has hepatitis C quantitative test [id number] IU/ml on 08/08/2022. Liver biopsy demonstrates perisinusoidal, [...] 9.5 mg/d (more content not included)... Normal [facility] Comment on above: Result Comment: Elec tronically Signed By: Felipe BAR, Roxie Ulloa.marge\Date and Time Signed: 02/08/24 14:17 EDT US [...] Duggan MD on 11/19/2023 11:54 AM Normal [facility] DRUG SCREEN, URINEon 024 AMPHETAMINE/METHAMP Negative Normal NEG [facility] Comment on above: Result Comment: AMPH /METH screening cut off = 1000 ng/mL Performed By: #### D BONE #### [facility] ([id number]) [address], [address] [place] [address] BARBITURATES Negative Normal NEG [facility] Comment on above: Result Comment: Aishwarya iturates screening cut off value = 200 ng/mL Performed By: #### D BONE #### [facility] ([id number]) [address] [place] [address] BENZODIAZEPINES Positive Abnormal NEG [facility] Comment on above: Result Comment: Conf irmation available upon request. Benzodiazepines screening cut off value = 200 ng/mL Performed By: #### D BONE #### [facility] ([id number]) [address], [address] [place] [address] CANNABINOIDS Positive Abnormal NEG [facility] Comment on above: Result Comment: Conf irmation available upon request. Cannabinoids/THC screening cut off value = 50 ng/mL Performed By: #### D BONE #### [facility] ([id number]) [address], [address] [place] [address] COCAINE METABOLITE Negative Normal NEG [facility] Comment on above: Result Comment: Coca ine screening cut off value = 300 ng/mL Performed By: #### D BONE #### [facility] ([id number]) [address], [address] [place] [address] ECSTASY Negative Normal NEG [facility] Comment on above: Result Comment: Ecst asy screening cut off value = 500 ng/mL This report is intended for use in clinical monitoring or management of patients. Performed By: #### D BONE #### [facility] ([id number]) [address], [address] [place] [address] METHADONE Negative Normal NEG [facility] Comment on above: Result Comment: Meth adone screening cut off value = 300 ng/mL. Performed By: #### D BOEN #### [facility] ([id number]) [address], [address] [place] [address] OPIATES Negative Normal NEG [facility] Comment on above: Result Comment: Opia ara screening cut off value = 300 ng/mL NOTE: This test is used for the detection of codeine, hydrocodone (>1000 ng/mL), morphine and hydromorphone (>900 ng/mL) in urine. Performed By: #### D BONE #### [facility] ([id number]) [address], [address] [place] [address] OXYCODONE Negative Normal NEG [facility] Comment on above: Result Comment: Oxyc odone screening cut off value = 300 ng/mL NOTE: This test is used for the detection of oxycodone and oxymorphone in urine. Performed By: #### D BONE #### [facility] ([id number]) [address], [address] [place] [address] PHENCYCLIDINE Negative Normal NEG [facility] Comment on above: Result Comment: Phen cyclidine screening cut off value = 25 ng/mL Performed By: #### D BONE #### [facility] ([id number]) [address], [address] [address] CBC AND AUTO DIFFon 08-09-19 24 ABSOLUTE BASOPHIL 0.1 X10E9/L Normal 0.0-0.2 [facility] Comment on above: Performed By: #### 3 5365-6, CMP, 2857-1, CBCA, 3016-3, 82599-5 #### [facility] ([id number]) [address], [address] [address] ABSOLUTE NEUTROPHIL 4.9 X10E9/L Normal 1.5-6.6 [facility] Comment on above: Performed By: #### 3 5365-6, CMP, 2857-1, CBCA, 3016-3, 55777-9 #### [facility] ([id number]) [address] [address] Basophils/100 WBC (Bld) 0.8 % Normal [facility] Comment on above: Performed By: #### 3 5365-6, CMP, 2857-1, CBCA, 3016-3, 11419-6 #### [facility] ([id number]) [address] [address] Eosinophils (Bld) [#/Vol] 0.1 10*3/uL Normal 0.0-0.4 [facility] Comment on above: Performed By: #### 3 5365-6, CMP, 2857-1, CBCA, 3016-3, 40404-1 #### [facility] ([id number]) [address] [address] Eosinophils/100 WBC (Bld) 1.5 % Normal [facility] Comment on above: Performed By: #### 3 5365-6, CMP, 2857-1, CBCA, 3016-3, 27439-6 #### [facility] ([id number]) [address] [address] Erythrocyte distribution width (RBC) [Ratio] 14.7 % Normal 11.5-15.0 [facility] Comment on above: Performed By: #### 3 5365-6, CMP, 2857-1, CBCA, 3016-3, 92926-4 #### [facility] ([id number]) [address] [address] Hematocrit (Bld) [Volume fraction] 46.5 % Normal 39-49 [facility] Comment on above: Performed By: #### 3 5365-6, CMP, 2857-1, CBCA, 3016-3, 87936-2 #### [facility] ([id number]) [address] [address] Hemoglobin (Bld) [Mass/Vol] 15.5 g/dL Normal 13.0-17.0 [facility] Comment on above: Performed By: #### 3 5365-6, CMP, 2857-1, CBCA, 3016-3, 60511-1 #### [facility] ([id number]) [address] [address] Lymphocytes (Bld) [#/Vol] 3.4 10*3/uL Normal 1.0-3.5 [facility] Comment on above: Performed By: #### 3 5365-6, CMP, 2857-1, CBCA, 3016-3, 91163-9 #### [facility] ([id number]) [address], [address] [place] [address] Lymphocytes/100 WBC (Bld) 36.6 % Normal [facility] Comment on above: Performed By: #### 3 5365-6, CMP, 2857-1, CBCA, 3016-3, 75217-5 #### [facility] ([id number]) [address], [address] [place] [address] MCH (RBC) [Entitic mass] 29.6 pg Normal 27-34 [facility] Comment on above: Performed By: #### 3 5365-6, CMP, 2857-1, CBCA, 3016-3, 10253-0 #### [facility] ([id number]) [address], [address] [place] [address] MCHC (RBC) [Mass/Vol] 33.4 g/dL Normal 32-36 [facility] Comment on above: Performed By: #### 3 5365-6, CMP, 2857-1, CBCA, 3016-3, 89528-6 #### [facility] ([id number]) [address], [address] [place] [address] MCV (RBC) [Entitic vol] 89 fL Normal 80-100 [facility] Comment on above: Performed By: #### 3 5365-6, CMP, 2857-1, CBCA, 3016-3, 72538-0 #### [facility] ([id number]) [address] [place] [address] Monocytes (Bld) [#/Vol] 0.8 10*3/uL Normal 0-0.9 [facility] Comment on above: Performed By: #### 3 5365-6, CMP, 2857-1, CBCA, 3016-3, 09833-8 #### [facility] ([id number]) [address], [address] [place] [address] Monocytes/100 WBC (Bld) 8.6 % Normal [facility] Comment on above: Performed By: #### 3 5365-6, CMP, 2857-1, CBCA, 3016-3, 03917-9 #### [facility] ([id number]) [address], [facility] [address] [place] [address] Neutrophils/100 WBC (Bld) 52.5 % Normal [facility] Comment on above: Performed By: #### 3 5365-6, CMP, 2857-1, CBCA, 3016-3, 47717-6 #### [facility] ([id number]) [address] [address] Platelet mean volume (Bld) [Entitic vol] 13.1 fL High 7-12 [facility] Comment on above: Performed By: #### 3 5365-6, CMP, 2857-1, CBCA, 3016-3, 33421-6 #### [facility] ([id number]) [address] [address] Platelets (Bld) [#/Vol] 213 10*3/uL Normal 150-450 [facility] Comment on above: Performed By: #### 3 5365-6, CMP, 2857-1, CBCA, 3016-3, 84115-7 #### [facility] ([id number]) [address] [address] RBC COUNT 5.23 X10E12/L Normal 4.10-5.70 [facility] Comment on above: Performed By: #### 3 5365-6, CMP, 2857-1, CBCA, 3016-3, 34577-0 #### [facility] ([id number]) [address] [address] WBC (Bld) [#/Vol] 9.3 10*3/uL Normal 4.0-11.0 [facility] Comment on above: Performed By: #### 3 5365-6, CMP, 2857-1, CBCA, 3016-3, 47012-9 #### [facility] ([id number]) [address] [place] [address] CBC auto differentialon 07-31 Basophils (Bld) [#/Vol] 0.1 10*3/uL [facility] Basophils/100 WBC (Bld) 0.8 % [facility] Eosinophils (Bld) [#/Vol] 0.1 10*3/uL [facility] Eosinophils/100 WBC (Bld) 1.5 % [facility] Erythrocyte distribution width (RBC) [Ratio] 14.7 % 11.5 - 15.0 % [facility] Hematocrit (Bld) [Volume fraction] 46.5 % 39 - 49 % [facility] Hemoglobin (Bld) [Mass/Vol] 15.5 g/dL 13.0 - 17.0 g/dL [facility] Interpretation and review of laboratory results Abnormal [facility] Lymphocytes (Bld) [#/Vol] 3.4 10*3/uL [facility] Lymphocytes/100 WBC (Bld) 36.6 % [facility] MCH (RBC) [Entitic mass] 29.6 pg 27 - 34 pg [facility] MCHC (RBC) [Mass/Vol] 33.4 g/dL 32 - 36 g/dL [facility] MCV (RBC) [Entitic vol] 89 fL 80 - 100 fL [facility] Monocytes (Bld) [#/Vol] 0.8 10*3/uL [facility] Monocytes/100 WBC (Bld) 8.6 % [facility] Neutrophils (Bld) [#/Vol] 4.9 10*3/uL [facility] Neutrophils/100 WBC (Bld) 52.5 % [facility] Platelet mean volume (Bld) [Entitic vol] 13.1 fL High 7 - 12 fL [facility] Platelets (Bld) [#/Vol] 213 10*3/uL [facility] RBC (Bld) [#/Vol] 5.23 10*6/uL [facility] WBC corrected for nucl RBC Auto (Bld) [#/Vol] 9.3 [facility] COMPREHENSIVE METABOLIC PANE Harjeet 08-09-2023 Albumin [Mass/Vol] 4.5 g/dL Normal 3.2-5.3 [facility] Comment on above: Performed By: #### 3 5365-6, CMP, 2857-1, CBCA, 3016-3, 58414-8 #### [facility] ([id number]) [address], [address] [place] [address] ALP [Catalytic activity/Vol] 99 U/L Normal 39-130 [facility] Comment on above: Performed By: #### 3 5365-6, CMP, 2857-1, CBCA, 3016-3, 60402-1 #### [facility] ([id number]) [address], [address] [place] [address] ALT [Catalytic activity/Vol] 48 U/L High 0-40 [facility] Comment on above: Performed By: #### 3 5365-6, CMP, 2857-1, CBCA, 3016-3, 72932-4 #### [facility] ([id number]) [address], [address] [place] [address] Anion gap [Moles/Vol] 8 mmol/L Normal 5-15 [facility] Comment on above: Performed By: #### 3 5365-6, CMP, 2857-1, CBCA, 3016-3, 99912-1 #### [facility] ([id number]) [address], [address] [place] [address] AST [Catalytic activity/Vol] 43 U/L High 0-41 [facility] Comment on above: Performed By: #### 3 5365-6, CMP, 2857-1, CBCA, 3016-3, 57889-3 #### [facility] ([id number]) [address], [address] [place] [address] Bilirubin [Mass/Vol] 0.7 mg/dL Normal 0.3-1.2 [facility] Comment on above: Performed By: #### 3 5365-6, CMP, 2857-1, CBCA, 3016-3, 19411-0 #### [facility] ([id number]) [address], [address] [place] [address] Calcium [Mass/Vol] 9.1 mg/dL Normal 8.5-10.5 [facility] Comment on above: Performed By: #### 3 5365-6, CMP, 2857-1, CBCA, 3016-3, 84143-1 #### [facility] ([id number]) [address], [address] [place] [address] Chloride [Moles/Vol] 102 mmol/L Normal 98-109 [facility] Comment on above: Performed By: #### 3 5365-6, CMP, 2857-1, CBCA, 3016-3, 62806-3 #### [facility] ([id number]) [address], [address] [place] [address] CO2 [Moles/Vol] 30 mmol/L Normal 22-32 [facility] Comment on above: Performed By: #### 3 5365-6, CMP, 2857-1, CBCA, 3016-3, 95145-8 #### [facility] ([id number]) [address], [address] [place] [address] Creatinine [Mass/Vol] 0.66 mg/dL Normal 0.60-1.30 [facility] Comment on above: Result Comment: METH OD TRACEABLE TO IDMS STANDARD Performed By: #### 3 5365-6, CMP, 2857-1, CBCA, 3016-3, 25038-3 #### [facility] ([id number]) [address], [address] [place] [address] eGFR (CKD-EPI) NON-RACE DEPENDENT >90 Normal >59 [facility] Comment on above: Result Comment: Reported eGFR is based on the CKD-EPI 2020 equation that does not use a race coefficient. Performed By: #### 3 5365-6, CMP, 2857-1, CBCA, 3016-3, 78309-2 #### [facility] ([id number]) [address], [address] [place] [address] Glucose [Mass/Vol] 101 mg/dL High 65-99 [facility] Comment on above: Performed By: #### 3 5365-6, CMP, 2857-1, CBCA, 3016-3, 85286-8 #### [facility] ([id number]) [address] [place] [address] Potassium [Moles/Vol] 4.7 mmol/L Normal 3.5-5.0 [facility] Comment on above: Performed By: #### 3 5365-6, CMP, 2857-1, CBCA, 3016-3, 59274-3 #### [facility] ([id number]) [address] [place] [address] Protein [Mass/Vol] 7.4 g/dL Normal 6.0-8.0 [facility] Comment on above: Performed By: #### 3 5365-6, CMP, 2857-1, CBCA, 3016-3, 19248-0 #### [facility] ([id number]) [address] [place] [address] Sodium [Moles/Vol] 140 mmol/L Normal 134-146 [facility] Comment on above: Performed By: #### 3 5365-6, CMP, 2857-1, CBCA, 3016-3, 18208-2 #### [facility] ([id number]) [address] [place] [address] Urea nitrogen [Mass/Vol] 8 mg/dL Normal 5-23 [facility] Comment on above: Performed By: #### 3 5365-6, CMP, 2857-1, CBCA, 3016-3, 94980-3 #### [facility] ([id number]) [address] [place] [address] Comprehensive metabolic pane harjeet 08-09-2023 Albumin [Mass/Vol] 4.5 g/dL 3.2 - 5.3 g/dL Pr [facility] ALP [Catalytic activity/Vol] 99 U/L 39 - 130 U/L [facility] ALT No additional P-5'-P [Catalytic activity/Vol] 48 U/L High 0 - 40 U/L [facility] Anion gap [Moles/Vol] 8 mmol/L 5 - 15 mmol/L [facility] AST [Catalytic activity/Vol] 43 U/L High 0 - 41 U/L [facility] Bilirubin [Mass/Vol] 0.7 mg/dL 0.3 - 1 .2 mg/dL [facility] Calcium [Mass/Vol] 9.1 mg/dL 8.5 - 10. 5 mg/dL [facility] Chloride [Moles/Vol] 102 mmol/L 98 - 10 9 mmol/L [facility] CO2 [Moles/Vol] 30 mmol/L 22 - 32 mmol/L [facility] Creatinine [Mass/Vol] 0.66 mg/dL 0.60 - 1.30 mg/dL [facility] Comment on above: METHOD TRACEABLE TO IDIL STANDARD eGFR (CKD-EPI)non-race dependent - PINF [facility] Comment on above: Reported eGFR is based on the CKD-EPI 2020 equation that does not use a race coefficient. Glucose [Mass/Vol] 101 mg/dL High 65 - 99 mg/dL [facility] Potassium [Moles/Vol] 4.7 mmol/L 3.5 - 5.0 mmol/L [facility] Protein [Mass/Vol] 7.4 g/dL 6.0 - 8.0 g/dL Pr [facility] Sodium [Moles/Vol] 140 mmol/L 134 - 146 mmol/L [facility] Urea nitrogen [Mass/Vol] 8 mg/dL 5 - 23 mg/dL [facility] HGB A1C (GLYCO-HGB)on 2023 Glucose [Mass/Vol] 111 mg/dL Normal [facility] Comment on above: Performed By: #### 3 5365-6, CMP, 2857-1, CBCA, 3016-3, 65603-5 #### [facility] ([id number]) [address] [place] [address] HbA1c (Bld) [Mass fraction] 5.5 % Normal 4.4-5.6 [facility] Comment on above: Result Comment: NOTE ADA Guidelines Result HgbA1c Normal : less than 5.7 % Prediabetes : 5.7 % to 6.4 % Diabetes : > 6.4 % Use with caution in patients with abnormal hemoglobin variants as the half-life of red blood cells and in vivo glycation rates are affected. Performed By: #### 3 5365-6, CMP, 2857-1, CBCA, 3016-3, 78952-2 #### [facility] ([id number]) [address] [place] [address] Lipid 1996 panelon Cholesterol [Mass/Vol] 201 mg/dL High 150 - 200 mg/dL [facility] Cholesterol in HDL [Mass/Vol] 54 mg/dL 39 - PINF mg/dL [facility] Comment on above: HDL <40 mg/dL - High Risk HDL > or = 40mg/dL- Desirable HDL >60 mg/dL - Negative Risk Cholesterol in LDL [Mass/Vol] 133 mg/dL High NINF - 130 mg/dL [facility] Comment on above: LDL <100 mg/dL - Desirable LDL >160 mg/dL - High Risk Cholesterol in VLDL [Mass/Vol] 14 mg/dL 0 - 30 mg/dL [facility] Cholesterol.total/Cho lesterol in HDL [Mass ratio] 3.7 {ratio} 1.0 - 5.0 [facility] Triglyceride [Mass/Vol] 72 mg/dL 27 - 150 mg/dL [facility] Cholesterol [Mass/Vol] 201 mg/dL High 150-200 [facility] Comment on above: Performed By: #### 3 5365-6, CMP, 2857-1, CBCA, 3016-3, 49259-6 #### [facility] ([id number]) [address] [place] [address] Cholesterol in HDL [Mass/Vol] 54 mg/dL Normal >39 [facility] Comment on above: Result Comment: HDL <40 mg/dL - High Risk HDL > or = 40mg/dL- Desirable HDL >60 mg/dL - Negative Risk Performed By: #### 3 5365-6, CMP, 2857-1, CBCA, 3016-3, 62441-5 #### [facility] ([id number]) [address] [place] [address] Cholesterol in LDL [Mass/Vol] 133 mg/dL High <130 [facility] Comment on above: Result Comment: LDL <100 mg/dL - Desirable LDL >160 mg/dL - High Risk Performed By: #### 3 5365-6, CMP, 2857-1, CBCA, 3016-3, 13294-1 #### [facility] ([id number]) [address], [address] [address] Cholesterol in VLDL [Mass/Vol] 14 mg/dL Normal 0-30 [facility] Comment on above: Performed By: #### 3 5365-6, CMP, 2857-1, CBCA, 3016-3, 92423-1 #### [facility] ([id number]) [address], [address] [address] CHOLESTEROL:HDL 3.7 Normal 1.0-5.0 [facility] Comment on above: Performed By: #### 3 5365-6, CMP, 2857-1, CBCA, 3016-3, 61590-0 #### [facility] ([id number]) [address] [address] Triglyceride [Mass/Vol] 72 mg/dL Normal 27-150 [facility] Comment on above: Performed By: #### 3 5365-6, CMP, 2857-1, CBCA, 3016-3, 95078-5 #### [facility] ([id number]) [address] [address] No Panel Informationon 08-09 Interpretation and review of laboratory results Abnormal [facility] Prostate specific Ag [Mass/V ol]on 08-09-2023 PSA SCREEN 0.18 ng/mL Normal 0.00-4.00 [facility] Comment on above: Result Comment: The method used for this test is Rocio [place] DXI chemiluminescent immunoassay. Values obtained by different assay methods cannot be used interchangeably. Performed By: #### 3 5365-6, CMP, 2857-1, CBCA, 3016-3, 26753-8 #### [facility] ([id number]) [address], [address] [place] [address] TSHon 01-10-2024 TSH Qn 1.42 m[IU]/L [facility] TSH Qnon 08-09-2023 [facility] TSH 1.42 uIU/mL Normal 0.49-4.67 [facility] Comment on above: Performed By: #### 3 5365-6, CMP, 2857-1, CBCA, 3016-3, 26614-4 #### [facility] ([id number]) [address] [place] [address] Vitamin D 25 hydroxyon 08-09 Vitamin D+Metabolites [Mass/Vol] ng/mL Low 30 - 100 ng/mL [facility] Comment on above: Vitamin D status 25 [place] Vitamin D Deficiency <20 ng/mL Insufficiency 20-29 ng/mL Sufficiency 30-100 ng/mL Toxicity >100 ng/mL NOTE: A pediatric reference range has not been established by the income tax administrator of this kit. The [place] [employer] recommends a Vitamin D level of = or >20ng/mL in infants and children. Vitamin D+Metabolites [Mass/ Vol]on 08-09-2023 Interpretation and review of laboratory results Abnormal [facility] VITAMIN D 25 HYD TOT <7.0 Low 30-100 [facility] Comment on above: Result Comment: Vitamin D status 25 [place] Vitamin D Deficiency <20 ng/mL Insufficiency 20-29 ng/mL Sufficiency 30-100 ng/mL Toxicity >100 ng/mL NOTE: A pediatric reference range has not been established by the income tax administrator of this kit. The [place] [employer] recommends a Vitamin D level of = or >20ng/mL in infants and children. Performed By: #### 3 5365-6, CMP, 2857-1, CBCA, 3016-3, 34074-0 #### [facility] ([id number]) [address] [place] [address] Reminderson 04-17-2023 Reminders - From: Yvette Doran CNP To: Emilia Matthew; Sent: 04/13/2023 10:42:30 EDT Show up: 04/13/2023 10:43:00 EDT Subject: Ambulatory Reminder Reminder/Recall Colonoscopy in 2029. 03/07/2030 7 year colon recall error colon due 08/08/2029 - From: Emilia Matthew To: SERGEI - Reminders/Recalls; Sent: 04/17/2023 13:23:53 EDT ! Show up: 06/30/2029 13:23:00 EST Due Date/Time: 2029 13:23:00 EST Normal [facility] Reminders - From: Yvette Doran CNP To: Emilia Matthew; Sent: 04/13/2023 10:53:17 EDT Show up: 04/13/2023 10:54:00 EDT Subject: Ambulatory Reminder Reminder/Recall EGD in 2 years. 03/01/2025 2 year EGD recall - From: Emilia Matthew To: SERGEI - Reminders/Recalls; Sent: 04/17/2023 13:20:12 EDT ! Show up: 01/28/2025 13:20:00 EDT Due Date/Time: 02/28/2025 13:20:00 EDT Normal [facility] Ambulatory Visit Summaryon 0 04-13-2023 Ambulatory [...] Follow Up with William BAR, SHAY Duke, [facility] When: Within 1 month Where: [address] [place] [address], [facility] [address] [address] [phone] Medications What How Much When Instructions Unchanged [...] Abdominal selwyn (more content not included)... Normal [facility] Gastroenterology Office/Clin ic Noteon 04-13-2023 Gastroenterology Office/Clinic [...] of colon) Previous colonoscopy 08/08/[address] Salam revealed diverticulosis, hemorrhoids, 5 mm ascending colon polyp removed that pathology revealed was tubular adenoma- Dr. Monroy recommended for patient to have repeat colonoscopy in 2030. Follow-up With When Contact Information William BAR, SHAY Duke MED Within 1 month [address], [address] [facility] [address] [place] [address] [phone] Additional Instructions: Patient Education Gastrointestinal Arteriovenous Malformations Problem List/Past Medical History Ongoing [place] (more content not included)... Normal [facility] Comment on above: Result Comment: Elec tronically Signed By: Yvette Doran CNP\.br\Date and Time Signed: 04/13/23 11:07 EDT Patient [...] Follow these instructions at home: ? Take svlu-obk-oetusrf and prescription medicines only as told by [...] provider. Document Revised: 12/30/2021 Document Reviewed: 12/30/2021 [employer] Patient Education ? 2022 [employer] Normal [facility] HCV RT-PCR, Quant (Non-Graph )on 04-09-2023 HCV RNA VANESSA+probe Qn Not detected Invalid Interpretation Code [facility] Comment on above: Performed By: #### 1 [id number] ####[facility] [address] [place] [address] Test Information: Comment Invalid Interpretation Code [facility] Comment on above: Result Comment: The quantitative range of this assay is 15 IU/mL to 100 million IU/mL. Performed at: [address] [id number] MD Antwan Barnett Performed By: #### 1 [id number] ####[facility] [address] [place] [address] Consent for Treatmenton 09- Consent for Treatment [id number] #1.00CD:127 Normal [facility] IntraOperative Documentson 0 03-06-2023 IntraOperative Documents [id number] 1#1.00CD:127 Normal [facility] Consenton 03-02-2023 Consent [id number] 5#1.00CD:127 Normal [facility] Discharge Instructionson Discharge Instructions [id number] 0#1.00CD:127 Normal [facility] Main OR Intraoperative Recor don 03-02-2023 Main OR Intraoperative Record IntraOp Document Type FT Summary Primary Physician: Cristo MONROY MD Finalized Date/Time: 03/02/23 08:33:36 Pt. Name: QING CLARK/Sex: 1965 Male Med Rec #: [id number] Physician: Cristo MONROY MD Financial #: [id number] Pt. Type: O Room/Bed: Endo 11/28 Admit/Disch: [...] 1 Entry 2 Entry 3 Case Attendee Rita Reyez CRNA, RN, Almita Griffith Role Performed [employer]LE [employer] - Primary Scrub - Primary Time In 03/01/23 09:19:00 03/01/23 09:19:00 03/01/23 09:19:00 Time Out 03/01/23 09:26:00 03/01/23 09:26:00 03/01/23 09:26:00 Procedure EGD(.) EGD(.) EGD(.) Comments Dr. Cherry supervising case Last Modified By: Khanh CAZARES, Andreia Cassidy RN, Andreia Goddard RN 03/01/23 09:26:35 F 03/01/23 09:26:35 F 03/01/23 09:26:35 Entry 4 Case Attendee Cristo MONROY MD Role Performed Surgeon - Primary Time In 03/01/23 09:19:00 Time Out 03/01/23 09:26:00 Procedure EGD(.) Comments Last Modified By: Khanh CAZARES, Andreia Syed 03/01/23 09:26:35 Perioperative Protocols FT Pre-Care Text: [...] (If Applicable) PreOp Antibiotic No Time Out Rita Reyez CRNA, Given Participants Khanh CAZARES, Evan Cantu Kirstyn K, SALAM MD, Maher Time Out [...] and tissue Entry 1 Skin Integrity Intact, [place], Warm, and Skin Abnormality No Dry Outcomes [...] By Den (more content not included)... Normal [facility] Postoperative Documentson Postoperative Documents [id number] 1#1.00CD:127 Normal [facility] Consent for Treatmenton Consent for Treatment [id number] #1.00CD:127 Normal [facility] Discharge Instructionson Discharge Instructions QING CLARK :1965 [...] Low Sodium- 2000 mg Pharmacy Information Other: [facility] Discharge Instructions Discharge Instructions New Follow Up Appointments after Discharge Follow Up with ELIANA BAR, SHAY Lemons, MED When: Comments: Call for any problems. Office to call for follow up appt. Where: [address] [place] [address] [employer] (1) Medications What How Much When Instructions Next Dose New omeprazole (omeprazole 40 mg Cap-DR) 1 Capsules By Mouth Every day Refills: 1 Pickup at [facility] Unchanged albuterol (Ventolin HFA 90 mcg/ [...] Capsules By Mouth Every day Pharmacy Information [facility]: [address] [place], [place] [id number] [phone] What When Comments Stop Taking lisinopril Every [...] Document Re-Released: 01/08/2007 ExitCare? Patient Information ?2009 [employer]. Nonsteroidal Anti-Inflammatory Medications (NSAIDS) Non-steroidal anti-inflammator (more content not included)... Normal [facility] Comment on above: Result Comment: Elec tronically Signed By: Blake CAZARES, Mara Greenfield\.br\Date and Time Signed: 03/01/23 09:34 EDT Endoscopic [...] in the second part Images Procedure images: Rec1_hd_video_2023_0 8_02T08_27_58_653.jose elias g Rec1_hd_video_2023_0 8_02T08_28_05_536.jose elias g Rec1_hd_video_2023_0 8_02T08_27_12_313.jose elias g Rec1_hd_video_2023_0 8_02T08_27_20_589.jose elias g Rec1_hd_video_2023_0 8_02T08_27_37_465.jose elias g Rec1_hd_video_2023_0 8_02T08_26_56_727.jose elias g Rec1_hd_video_2023_0 8_02T08_26_52_087.jose elias g . Post-Procedure Complications: none. Estimated [...] weeks 5. Avoid alcohol and NSAIDs Normal [facility] Comment on above: Result Comment: Elec tronically Signed By: ELIANA BAR, Cristo\.br\Date and Time Signed: 03/01/23 09:26 EDT Other Comment: Radha corbett Attachment - attachment storage system not supported [id number] Can be viewed in source systemMissing Attachment - attachment storage system not supported [id number] Can be viewed in source systemMissing Attachment - attachment storage system not supported [id number] Can be viewed in source systemMissing Attachment - attachment storage system not supported 1757912 Can be viewed in source systemMissing Attachment - attachment storage system not supported 9287068 Can be viewed in source systemMissing Attachment - attachment storage system not supported [id number] Can be viewed in source systemMissing Attachment - attachment storage system not supported [id number] Can be viewed in source system Main OR PACU I Recordon Main OR PACU I Record PACU Phase I Document Type FT Summary Primary Physician: Cristo MONROY MD Finalized Date/Time: 03/01/23 09:57:18 Pt. Name: QING CLARKO.B./Sex: 1965 Male Med Rec #: [id number] Physician: Cristo MONROY MD Financial #: [id number] Pt. Type: O Room/Bed: Endo 11/28 Admit/Disch: [...] I Outcomes Met? Yes Last Modified By: Blake CAZARES, Mara Greenfield 03/01/23 09:57:06 Post-Care Text: The patient demonstrates [...] By: Mara Lozano RN 03/01/23 09:57 Normal [facility] Main OR Preoperative Recordo n 03-01-2023 Main OR Preoperative Record Holding Area Document Type FT Summary Primary Physician: Cristo MONROY MD Finalized Date/Time: 03/01/23 09:12:18 Pt. Name: QING CLARK/Sex: 1965 Male Med Rec #: [id number] Physician: Cristo MONROY MD Financial #: [id number] Pt. Type: O Room/Bed: Endo 11/28 Admit/Disch: [...] By: Nilson Roe RN 03/01/23 09:12 Normal [facility] Monitor Recordon 03-01-2023 Monitor Record [id number] 9#1.00CD:127 Normal [facility] Monitor Record [id number] 3#1.00CD:127 Normal [facility] Progress Note-Physicianon Progress Note-Physician Patient: QING [...] Daily, # 30 cap(s), Refills(s) 1, Pharmacy: [facility], 181, cm, 03/01/23 9:09:00 EDT, Height/Length [...] Problems Adenomatous colon polyp / SNOMED CT 0104075147 / Confirmed Chronic active hepatitis C / SNOMED CT 2260620493 / Confirmed Compensated HCV cirrhosis / SNOMED CT 337748224 / Confirmed Screen for colon cancer / SNOMED CT 966375136 / Confirmed Smoker / IMO 781656 / Confirmed Added secondary to documentation in [...] of N/V. Hydration status is adequate. Normal [facility] Comment on above: Result Comment: Elec [...] Problems Adenomatous colon polyp / SNOMED CT 4192015340 / Confirmed Chronic active hepatitis C / SNOMED CT 3369074274 / Confirmed Compensated HCV cirrhosis / SNOMED CT 208567886 / Confirmed Screen for colon cancer / SNOMED CT 316189626 / Confirmed Smoker / IMO 142138 / Confirmed Added secondary to documentation in Social History., Active Problems (5) Adenomatous colon polyp Chronic active hepatitis C Compensated HCV cirrhosis Screen for colon cancer Smoker Histories Past Medical History: No active or resolved past medical history items have been selected or recorded. Family History: Entire family history is negative. Procedure history: Colonoscopy ([id number]) on 08/08/2022 at 57 Years. Comments: 08/08/2022 [...] Soft. Review / Management Results review Plan [place] [employer]hes[employer] (ASA) physical status classification: Class III. Anesthetic Preoperative Plan: Anesthesia General. Normal [facility] Comment on above: Result Comment: Elec tronically Signed By: Faheem Cherry DObr\Date and Time Signed: 03/01/23 09:16 EDT CHEMISTRYOrdered [...] 45 [iU]/d High 5 - 43 Int._Unit/L [facility] Bilirubin [Mass/Vol] 0.9 mg/dL Normal 0.0 - 1 .1 mg/dL [facility] Calcium [Mass/Vol] 9.5 mg/dL Normal 8.9 - 11. 1 mg/dL [facility] Chloride [Moles/Vol] 101 mmol/L Normal 101 - 1 11 mmol/L [facility] CO2 [Moles/Vol] 28 mmol/L Normal 21 - 31 mmol/L [facility] Creatinine [Mass/Vol] 0.8 mg/dL Normal 0.5 - 1.3 mg/dL [facility] GFR/1.73 sq M.predicted among non-blacks MDRD (S/P/Bld) [Vol rate/Area] 105 mL/min/1.73 m2 Normal >=59mL/min/1.7 3 m2 FT Chem S Globulin (S) [Mass/Vol] 3.8 g/dL Normal 1.4 - 4.0 gm/dL [facility] Glucose [Mass/Vol] 105 mg/dL Normal 55 - 199 mg/dL [facility] Potassium [Moles/Vol] 4.3 mmol/L Normal 3.5 - 5.3 mmol/L [facility] Protein [Mass/Vol] 8.1 g/dL High 6.0 - 7.8 gm/dL [facility] Sodium [Moles/Vol] 138 mmol/L Normal 135 - 145 mmol/L [facility] Urea nitrogen [Mass/Vol] 9 mg/dL Normal 5 - 21 mg/dL [facility] Urea nitrogen/Creatinine [Mass ratio] 11 mg/mg Normal 10 - 20 [facility] COAGULATIONOrdered By: Twila Johnson on 02-07-2023 INR Coag (PPP) [Relative time] 1.1 {INR} Invalid Interpretation Code [facility] Auto Coag PT Coag (PPP) [Time] 12.4 s Normal 9.4 - 1 2.5 second(s) [facility] Auto Coag HEMATOLOGYOrdered By: Slade Briseno on 02-07-2023 Erythrocyte distribution width (RBC) [Ratio] 14.1 % Normal 10.9 - 14.2 % [facility] HemeAutoSS Hematocrit (Bld) [Volume fraction] 45.0 % Normal 37.7 - 49.0 % [facility] HemeAutoSS Hemoglobin (Bld) [Mass/Vol] 15.5 g/dL Normal 13.5 - 17.5 gm/dL [facility] HemeAutoSS MCH (RBC) [Entitic mass] 30.3 pg Normal 27.0 - 34.0 pg [facility] HemeAutoSS MCHC (RBC) [Mass/Vol] 34.5 g/dL Normal 31.4 - 36.0 gm/dL [facility] HemeAutoSS MCV (RBC) [Entitic vol] 87.8 fL Normal 80.0 - 100.0 fL [facility] HemeAutoSS Platelet mean volume (Bld) [Entitic vol] 10.7 fL Normal 6.4 - 10.8 fL [facility] HemeAutoSS Platelets (Bld) [#/Vol] 226.0 E9/L Normal 150.0 - 500.0 E9/L [facility] HemeAutoSS RBC (Bld) [#/Vol] 5.1 E12/L Normal 4.3 - 5.9 E12/L [facility] HemeAutoSS WBC corrected for nucl RBC Auto (Bld) [#/Vol] 11.7 E9/L High 4.0 - 11.0 E9/L [facility] HELICOBACTER PYLORI AG STOOL on 09-18-2020 H. pylori Stool Ag, EIA Negative Normal Negative [facility] Comment on above: Performed By: #### H PYLORI #### [facility] [address] [id number] Siri Murdock HEPATITIS PANEL, ACUTEon HBsAg Screen Negative Normal Negative [facility] Comment on above: Performed By: #### H EPACUT #### [facility] [address] [address] Siri Murdock Hep A Ab, IgM Negative Normal Negative [facility] Comment on above: Performed By: #### H EPACUT #### [facility] [address] [address] Siri Murdock Hep B Core Ab, IgM Negative Normal Negative [facility] Comment on above: Performed By: #### H EPACUT #### [facility] [address] [address] Siri Murdock Hep C Virus Ab >11.0 Critically high 0.0-0.9 [facility] Comment on above: Result Comment: Nega tive: < 0.8 Indeterminate: 0.8 - 0.9 Positive: > 0.9 . The CDC recommends that a positive HCV antibody result be followed up with a HCV Nucleic Acid Amplification test (506977). Performed By: #### H EPACUT #### [facility] [address] [place], [place] [address] Siri Murdock CULTURE STOOLon 09-13-2020 CULTURE STOOL Culture Observations: No growth of Salmonella,Shigella, Yerisinia at 72 hours. Culture Observations: No growth of Campylobacter,E.coli 0157 or Staphylococcus at 72 hours. Normal [facility] Comment on above: Performed By: #### S TOOLCX #### [facility] [address] [place] [address] Siri Murdock OCC BLD IMMUNOASSAYon 2020 OCCULT BLOOD Negative Normal NEGATIVE [facility] Comment on above: Performed By: #### O GA ####[facility] [address] [place], [place] [address]Kolyrn Collette CBC AUTO DIFFon 09-11-2020 BASO # 0.1 103/ul Normal 0.0-0.1 [facility] Comment on above: Performed By: #### C BC #### [facility] [address] [place], [place] [address] Siri Collette Basophils/100 WBC (Bld) 0.8 % Normal 0.2-2.0 [facility] Comment on above: Performed By: #### C BC #### [facility] [address] [place], [place] [address] Siri Collette EO # 0.3 103/ul Normal 0.0-0.7 [facility] Comment on above: Performed By: #### C BC #### [facility] [address] [id number] Siri Collette Eosinophils/100 WBC (Bld) 2.8 % Normal 0.9-7.0 [facility] Comment on above: Performed By: #### C BC #### [facility] [address] [id number] Siri Collette Erythrocyte distribution width (RBC) [Ratio] 14.4 % Normal 11.0-15.0 [facility] Comment on above: Performed By: #### C BC #### [facility] [address] [place], [place] [address] Siri Collette Hematocrit (Bld) [Volume fraction] 43.3 % Normal 42.0-54.0 [facility] Comment on above: Performed By: #### C BC #### [facility] [address], [place] [address] Siri Collette Hemoglobin (Bld) [Mass/Vol] 14.6 g/dL Normal 14.0-18.0 [facility] Comment on above: Performed By: #### C BC #### [facility] [address] [id number] Siri Collette IG # 0.03 10e3/ul Normal 0.00-0.03 [facility] Comment on above: Performed By: #### C BC #### [facility] [address] [place], [place] [id number] Siri Collette IG % 0.3 % Normal 0.0-0.5 [facility] Comment on above: Performed By: #### C BC #### [facility] [address] [place], [place] [id number] Siri Collette LYMPH # 4.5 103/ul Critically high 1.2-3.8 The [facility] Comment on above: Performed By: #### C BC #### [facility] [address] [place], [place] [id number] Siri Collette Lymphocytes/100 WBC (Bld) 46.3 % Normal 20.5-60.0 [facility] Comment on above: Performed By: #### C BC #### [facility] [address] [place], [place] [id number] Siri Murdock MANUAL DIFF REQ NO Normal The [facility] Comment on above: Performed By: #### C BC #### [facility] [address] [place], [place] [id number] Siribrendan Amayaen MCH (RBC) [Entitic mass] 31.1 pg Normal 25.9-34.0 [facility] Comment on above: Performed By: #### C BC #### [facility] [address] [place], [place] [id number] Siribrendan Murdock MCHC (RBC) [Mass/Vol] 33.7 g/dL Normal 29.9-35.2 [facility] Comment on above: Performed By: #### C BC #### [facility] [address] [place], [place] [id number] Siri Collette MCV (RBC) [Entitic vol] 92.1 fL Normal 80.0-94.0 [facility] Comment on above: Performed By: #### C BC #### [facility] [address] [place], [place] [id number] Siri Collette MONO # 1.2 103/ul Critically high 0.3-0.8 The [facility] Comment on above: Performed By: #### C BC #### [facility] [address] [place], [place] [id number] Siri Collette Monocytes/100 WBC (Bld) 12.6 % Critically high 1.7-12.0 [facility] Comment on above: Performed By: #### C BC #### [facility] [address] [place], [place] [address] Siri Murdock NEUT # 3.6 103/ul Normal 1.4-6.5 [facility] Comment on above: Performed By: #### C BC #### [facility] [address] [place], [place] [address] Siri Murdock Neutrophils/100 WBC (Bld) 37.2 % Critically low 43.0-75.0 [facility] Comment on above: Performed By: #### C BC #### [facility] [address] [place], [place] [id number] Siri Murdock Platelet mean volume (Bld) [Entitic vol] 11.1 fL Normal 9.5-13.5 [facility] Comment on above: Performed By: #### C BC #### [facility] [address] [place], [place] [address] Siribrendan Amayaen PLT 222 103/ul Normal 150-450 [facility] Comment on above: Performed By: #### C BC #### [facility] [address] [place], [place] [address] Siri Murdock RBC 4.70 106/ul Normal 4.70-6.10 [facility] Comment on above: Performed By: #### C BC #### [facility] [address] [place], [place] [address] Siri Murdock WBC 9.8 103/ul Normal 4.0-11.0 [facility] Comment on above: Performed By: #### C BC #### [facility] [address] [place], [place] [address] Siri Murdock FERRITINon 09-11-2020 Ferritin [Mass/Vol] 313.0 ng/mL Normal 17.9-464.0 [facility] Comment on above: Performed By: #### F ERR, FETIBC #### [facility] [address] [place], [place] [address] Siri Murdock IRON AND TIBCon 09-11-2020 % SATURATION 34.5 % Normal [facility] Comment on above: Performed By: #### F ERR, FETIBC #### [facility] [address] [place], [place] [address] Siribrendan Murdock Iron [Mass/Vol] 88.0 ug/dL Normal 49.0-181.0 [facility] Comment on above: Performed By: #### F ERR, FETIBC #### [facility] [address] [place], [place] [address] Siribrendan Murdock TIBC DIRECT 255.0 ug/dL Critically low 261.0-497.0 [facility] Comment on above: Performed By: #### F ERR, FETIBC #### [facility] [address] [place], [place] [address] Siri Murdock PROF 14(COMP METB)on 021 Albumin [Mass/Vol] 3.8 g/dL Normal 3.5-5.0 [facility] Comment on above: Performed By: #### C MP #### [facility] [address] [place], [place] [address] Siribrendan Murdock Albumin/Globulin [Mass ratio] 1.0 {ratio} Normal [facility] Comment on above: Performed By: #### C MP #### [facility] [address] [place], [place] [address] Siri Collette ALP [Catalytic activity/Vol] 78 U/L Normal 38-126 [facility] Comment on above: Performed By: #### C MP #### [facility] [address] [place], [place] [address] Siri Collette ALT [Catalytic activity/Vol] 80 U/L Critically high 21-72 [facility] Comment on above: Performed By: #### C MP #### [facility] [address] [place], [place] [address] Siri Collette Anion gap [Moles/Vol] 12.1 mmol/L Normal [facility] Comment on above: Performed By: #### C MP #### [facility] [address] [place], [place] [address] Siri Collette AST [Catalytic activity/Vol] 58 U/L Normal 17-59 [facility] Comment on above: Performed By: #### C MP #### [facility] [address] [id number] Siri Collette Bilirubin [Mass/Vol] 0.6 mg/dL Normal 0.2-1.3 [facility] Comment on above: Performed By: #### C MP #### [facility] [address], [place] [address] Siri Collette Calcium [Mass/Vol] 8.8 mg/dL Normal 8.4-10.2 [facility] Comment on above: Performed By: #### C MP #### [facility] [address] [id number] Siri Collette Chloride [Moles/Vol] 103 mmol/L Normal 98-107 [facility] Comment on above: Performed By: #### C MP #### [facility] [address] [id number] Siri Collette CO2 [Moles/Vol] 29.9 mmol/L Normal 22.0-30.0 [facility] Comment on above: Performed By: #### C MP #### [facility] [address] [id number] Siri Collette Creatinine [Mass/Vol] 0.61 mg/dL Critically low 0.66-1.25 [facility] Comment on above: Performed By: #### C MP #### [facility] [address] [id number] Siri Collette EGFR-AF GIBRALTARIAN >60 Normal >=60 [facility] Comment on above: Performed By: #### C MP #### [facility] [address] [id number] Siri Collette EGFR-NON AF GIBRALTARIAN >60 Normal >=60 [facility] Comment on above: Performed By: #### C MP #### [facility] [address] [id number] Siri Collette Globulin (S) [Mass/Vol] 3.7 g/dL Normal [facility] Comment on above: Performed By: #### C MP #### [facility] [address] [address] Siri Collette Glucose [Mass/Vol] 113 mg/dL Critically high 74-106 T [facility] Comment on above: Performed By: #### C MP #### [facility] [address] [id number] Siri Collette Potassium [Moles/Vol] 4.0 mmol/L Normal 3.4-5.0 [facility] Comment on above: Performed By: #### C MP #### [facility] [address] [address] Siri Collette Protein [Mass/Vol] 7.5 g/dL Normal 6.1-8.2 The [facility] Comment on above: Performed By: #### C MP #### [facility] [address] [address] Siri Collette Sodium [Moles/Vol] 141 mmol/L Normal 137-145 The [facility] Comment on above: Performed By: #### C MP #### [facility] [address] [address] Siri Collette Urea nitrogen [Mass/Vol] 9.0 mg/dL Normal 9.0-20.0 [facility] Comment on above: Performed By: #### C MP #### [facility] [address] [address] Siri Collette Urea nitrogen/Creatinine [Mass ratio] 14.8 mg/mg Normal [facility] Comment on above: Performed By: #### C MP #### [facility] [address] [address] Siri Amayaen COVID-19 PCRon 06-16-2020 SARS-CoV-2 (COVID-19) RNA VANESSA+probe Ql (Unsp spec) Not detected Normal Not Detected [facility] Comment on above: Result Comment: This nucleic acid amplification test was developed and its performance characteristics determined by [employer]. Nucleic acid amplification tests include PCR and [...] assay. Performed By: #### C VDPCR #### [facility] [address] [place] [address] Siri Murdock XR CHEST 2 Von 06-11-2020 [...] by: CRISTY COBB Date: 2020-06-11 15:08 Normal [facility] Vital Signs Date Time Vital Sign Value Performing Clinician Facility 02-08-2024 13:52-0400 Diastolic blood pressure 98 mm[Hg] Roxie Wang [facility] 02-08-2024 13:52-0400 Mean blood pressure 119 mm[Hg] Roxie Wang [facility] 02-08-2024 13:52-0400 Systolic blood pressure 162 mm[Hg] Roxie Wang [facility] 02-08-2024 13:50-0400 Blood Pressure Location CAL - [employer] Divmerle Wang [facility] 02-08-2024 13:50-0400 Diastolic blood pressure 92 mm[Hg] Roxie Wang [facility] 02-08-2024 13:50-0400 Heart rate 55 /min Roxie Wang [facility] 02-08-2024 13:50-0400 Respiratory rate 16 /min Roxie Wang [facility] 02-08-2024 13:50-0400 Systolic blood pressure 167 mm[Hg] Roxie Wang [facility] 08-09-2023 12:56-0500 Body height 180.3 cm Maria E STAUFFER Work Phone: [facility] [employer] [facility] 08-09-2023 12:56-0500 Body mass index (BMI) [Ratio] 26.29 kg/m2 Maria E Graham APRN-EZEQUIEL Work Phone: [facility] [employer] 08-09-2023 12:56-0500 Body temperature 97.81 [degF] Maria E Graham APRN-EZEQUIEL [facility] 08-09-2023 12:56-0500 Body weight 85.5 kg Maria E Graham APRN-EZEQUIEL [facility] 08-09-2023 12:56-0500 Diastolic blood pressure 78 mm[Hg] Maria E Graham APRN-EZEQUIEL [facility] 08-09-2023 12:56-0500 Heart rate 84 /min Maria E Graham APRN-EZEQUIEL [facility] 08-09-2023 12:56-0500 SaO2% (BldA) [Mass fraction] 93 % Maria E Graham APRN-EZEQUIEL Work Phone: [facility] [employer] 08-09-2023 12:56-0500 Systolic blood pressure 120 mm[Hg] Maria E STAUFFER Work Phone: [employer] [facility] 04-13-2023 10:39-0400 Blood Pressure Location Yvette Doran [facility] 04-13-2023 10:39-0400 Body temperature 96.8 [degF] Yvette Doran [facility] 04-13-2023 10:39-0400 Diastolic blood pressure 85 mm[Hg] Yvette Doran [facility] 04-13-2023 10:39-0400 Heart rate 63 /min Yvette Doran [facility] 04-13-2023 10:39-0400 Systolic blood pressure 134 mm[Hg] Yvette Doran [facility] 03-01-2023 09:52-0400 Diastolic blood pressure 85 mm[Hg] Lemons SALAM [facility] 03-01-2023 09:52-0400 Heart rate 50 /min Lemons SALAM [facility] 03-01-2023 09:52-0400 Respiratory rate 13 /min Lemons SALAM [facility] 03-01-2023 09:52-0400 SaO2% (BldA) [Mass fraction] 97 % Lemons SALAM [facility] 03-01-2023 09:52-0400 Systolic blood pressure 146 mm[Hg] Lemons SALAM [facility] 03-01-2023 09:40-0400 Diastolic blood pressure 80 mm[Hg] Lemons SALAM [facility] 03-01-2023 09:40-0400 Heart rate 64 /min Lemons SALAM [facility] 03-01-2023 09:40-0400 Respiratory rate 14 /min Lemons SALAM [facility] 03-01-2023 09:40-0400 SaO2% (BldA) [Mass fraction] 96 % Lemons SALAM [facility] 03-01-2023 09:40-0400 Systolic blood pressure 134 mm[Hg] Lemons SALAM [facility] 03-01-2023 09:35-0400 Diastolic blood pressure 78 mm[Hg] Lemons SALAM [facility] 03-01-2023 09:35-0400 Heart rate 55 /min Lemons SALAM [facility] 03-01-2023 09:35-0400 Respiratory rate 18 /min Lemons SALAM [facility] 03-01-2023 09:35-0400 SaO2% (BldA) [Mass fraction] 96 % Lemons SALAM [facility] 03-01-2023 09:35-0400 Systolic blood pressure 131 mm[Hg] Lemons SALAM [facility] 03-01-2023 09:27-0400 Body temperature 97.52 [degF] Lemons SALAM [facility] 03-01-2023 09:25-0400 Respiratory rate 15 /min Lemons SALAM [facility] 03-01-2023 09:20-0400 Respiratory rate 14 /min Lemons SALAM [facility] 03-01-2023 09:09-0400 Blood Pressure Location Lemons SALAM [facility] 03-01-2023 09:09-0400 Body temperature 98.42 [degF] Lemons SALAM [facility] 12-29-2022 13:30-0400 Blood Pressure Location Lemons SALAM [facility] 12-29-2022 13:30-0400 Diastolic blood pressure 88 mm[Hg] Lemons SALAM [facility] 12-29-2022 13:30-0400 Heart rate 81 /min Lemons SALAM [facility] 12-29-2022 13:30-0400 Respiratory rate 16 /min Lemons SALAM [facility] 12-29-2022 13:30-0400 Systolic blood pressure 136 mm[Hg] Lemons SALAM [facility] 08-10-2022 11:00-0500 Blood Pressure Location Lemons SALAM [facility] 08-10-2022 11:00-0500 Body temperature 97.88 [degF] Lemons SALAM [facility] 08-10-2022 11:00-0500 Diastolic blood pressure 96 mm[Hg] Lemons SALAM [facility] 08-10-2022 11:00-0500 Heart rate 57 /min Lemons SALAM [facility] 08-10-2022 11:00-0500 Respiratory rate 19 /min Lemons SALAM [facility] 08-10-2022 11:00-0500 SaO2% (BldA) [Mass fraction] 100 % Lemons SALAM [facility] 08-10-2022 11:00-0500 Systolic blood pressure 168 mm[Hg] Lemons SALAM [facility] 08-08-2022 13:10-0500 Diastolic blood pressure 83 mm[Hg] Lemons SALAM [facility] 08-08-2022 13:10-0500 Heart rate 48 /min Lemons SALAM [facility] 08-08-2022 13:10-0500 Mean blood pressure 107 mm[Hg] Lemons SALAM [facility] 08-08-2022 13:10-0500 Respiratory rate 18 /min Lemons SALAM [facility] 08-08-2022 13:10-0500 SaO2% (BldA) [Mass fraction] 98 % Lemons SALAM [facility] 08-08-2022 13:10-0500 Systolic blood pressure 156 mm[Hg] Lemons SALAM [facility] 08-08-2022 12:55-0500 Diastolic blood pressure 82 mm[Hg] Lemons SALAM [facility] 08-08-2022 12:55-0500 Heart rate 61 /min Lemons SALAM [facility] 08-08-2022 12:55-0500 Mean blood pressure 107 mm[Hg] Lemons SALAM [facility] 08-08-2022 12:55-0500 Respiratory rate 20 /min Lemons SALAM [facility] 08-08-2022 12:55-0500 SaO2% (BldA) [Mass fraction] 96 % Lemons SALAM [facility] 08-08-2022 12:55-0500 Systolic blood pressure 158 mm[Hg] Lemons SALAM [facility] 08-08-2022 12:50-0500 Diastolic blood pressure 116 mm[Hg] Lemons SALAM [facility] 08-08-2022 12:50-0500 Heart rate 63 /min Lemons SALAM [facility] 08-08-2022 12:50-0500 Mean blood pressure 123 mm[Hg] Lemons SALAM [facility] 08-08-2022 12:50-0500 Respiratory rate 21 /min Lemons SALAM [facility] 08-08-2022 12:50-0500 SaO2% (BldA) [Mass fraction] 96 % Lemons SALAM [facility] 08-08-2022 12:50-0500 Systolic blood pressure 138 mm[Hg] Lemons SALAM [facility] 08-08-2022 12:45-0500 Body temperature 97.7 [degF] Lemons SALAM [facility] 08-08-2022 12:40-0500 Respiratory rate 1 /min Lemons SALAM [facility] 08-08-2022 12:27-0500 Respiratory rate 20 /min Lemons SALAM [facility] 08-08-2022 12:21-0500 Blood Pressure Location Lemons SALAM [facility] 08-08-2022 12:21-0500 Body temperature 98.24 [degF] Lemons SALAM [facility] 06-29-2022 10:28-0500 Blood Pressure Location Lemons SALAM [facility] 06-29-2022 10:28-0500 Diastolic blood pressure 89 mm[Hg] Lemons SALAM [facility] 06-29-2022 10:28-0500 Heart rate 52 /min Lemons SALAM [facility] 06-29-2022 10:28-0500 Respiratory rate 14 /min Lemons SALAM [facility] 06-29-2022 10:28-0500 Systolic blood pressure 159 mm[Hg] Lemons SALAM [facility] Encounters Encounter Date Encounter Type Care Provider Facility Start: 02-09-2024 End: 02-15-2024 Pre-admission assessment Roxie Wang [facility] Start: 02-08-2024 End: 02-08-2024 ambulatory Roxie Wang Facility:[facility] Start: 02-08-2024 End: 02-08-2024 Patient encounter procedure Roxie Wang [facility] Start: 02-08-2024 End: 02-08-2024 ambulatory [facility] Start: 11-17-2023 End: 11-18-2023 ambulatory [facility] Start: 11-09-2023 End: 11-10-2023 ambulatory [facility] Start: 11-09-2023 End: 11-09-2023 Emergency department patient visit [facility] Start: 11-09-2023 End: 11-09-2023 ambulatory [facility] Start: 10-18-2023 Refill [facility] [employer]ATERWOR[employer] OPERATOR-CAREER SERVICES REPRESENTATIVE [facility] Comment on above: Narcotic drug use; Generalized anxiety disorder with panic attacks; PTSD (post-traumatic stress disorder) Start: 10-02-2023 Refill Maria E jose WATERWORKS OPERATOR-CAREER SERVICES REPRESENTATIVE [facility] Comment on above: COPD mixed type ([facility] Start: 08-28-2023 Orders Only Maria E jose WATERWORKS OPERATOR-CAREER SERVICES REPRESENTATIVE [facility] Start: 08-21-2023 Refill Maria E jose WATERWORKS OPERATOR-CAREER SERVICES REPRESENTATIVE [facility] Comment on above: Narcotic drug use; Generalized anxiety disorder with panic attacks; PTSD (post-traumatic stress disorder) Start: 08-09-2023 End: 08-10-2023 ambulatory [facility] Start: 08-09-2023 Encounter for genera l adult medical examination without abnormal findings [facility] Start: 08-09-2023 End: 08-09-2023 Patient encounter procedure [facility] Grhaam [facility] Work Phone: [facility] Start: 08-09-2023 End: 08-09-2023 Periodic preventive med est patient 40-64yrs Maria Ejustin Barberillo WATERWORKS OPERATOR-CAREER SERVICES REPRESENTATIVE Work Phone: [facility] Comment on above: Annual physical exam (Primary Dx); Encounter for screening for malignant neoplasm of prostate; Blood tests for routine general physical examination; Vitamin D deficiency; Benign prostatic hyperplasia with weak urinary stream; Generalized anxiety disorder with panic attacks; Current moderate episode of major depressive disorder without prior episode ([facility]) Start: 08-09-2023 End: 08-09-2023 Physical examination Maria E Barberillo WATERWORKS OPERATOR-CAREER SERVICES REPRESENTATIVE Work Phone: [facility] Start: 08-09-2023 End: 08-09-2023 ambulatory [facility] Start: 08-09-2023 Encounter for genera l adult medical examination without abnormal findings [facility] Start: 07-24-2023 Refill Maria E jose WATERWORKS OPERATOR-CAREER SERVICES REPRESENTATIVE Work Phone: [facility] Comment on above: Narcotic drug use; Generalized anxiety disorder with panic attacks; PTSD (post-traumatic stress disorder) Start: 04-13-2023 End: 04-13-2023 ambulatory [facility] Facility:[facility] Start: 04-13-2023 End: 04-13-2023 Patient encounter procedure Yvette Doran [facility] Start: 04-06-2023 End: 04-06-2023 [facility] Start: 04-06-2023 End: 04-06-2023 Patient encounter procedure Lemons SALAM [facility] Start: 03-01-2023 End: 03-01-2023 ambulatory [facility] Start: 03-01-2023 End: 03-01-2023 Patient encounter procedure Lemons SALAM [facility] Start: 02-07-2023 End: 02-07-2023 Patient encounter procedure Lemons SALAM [facility] Start: 01-23-2023 End: 01-23-2023 Patient encounter procedure Lemons SALAM [facility] Start: 12-29-2022 End: 12-29-2022 Patient encounter procedure Lemons SALAM [facility] Start: 10-05-2022 End: 10-05-2022 Patient encounter procedure Lemonsryne HOLDERAM [facility] Start: 08-10-2022 End: 08-10-2022 Patient encounter procedure Lemons SALAM [facility] Start: 08-08-2022 End: 08-08-2022 Patient encounter procedure Lemonsryne HOLDERAM [facility] Start: 07-13-2022 End: 07-13-2022 Patient encounter procedure Lemonsryne MONROY [facility] Start: 06-29-2022 End: 06-29-2022 Patient encounter procedure Lemonsryne MONROY [facility] Start: 12-25-2020 End: 12-25-2020 ambulatory MARIA E GRAHAM Facility:[facility] Start: 09-13-2020 End: 09-13-2020 ambulatory MARIA E GRAHAM Facility:[facility] Start: 09-11-2020 End: 09-12-2020 ambulatory MARIA E GRAHAM Facility:[facility] Start: 06-11-2020 End: 06-12-2020 ambulatory MARIA E [facility] Facility:[facility] Procedures Date Procedure Procedure Detail Performing Clinician Start: 08-09-2023 Adult depression screening assessment Maria E Graham WATERWORKS OPERATOR-CAREER SERVICES REPRESENTATIVE Work Phone: Start: 05-18-2023 Adult depression screening assessment Maria E Graham WATERWORKS OPERATOR-CAREER SERVICES REPRESENTATIVE Work Phone: Start: 03-01-2023 Esophagogastroduodenoscopy [facility] Start: 08-08-2022 Colonoscopy [facility] Comment on above: one 5 mm polyp, diverticulosis, IH Plan of Treatment Date Care Activity Detail Author Start: 08-09-2024 Adult BMI Follow Up Plan Adult BMI Follow Up Plan [facility] Start: 08-09-2024 Adult BMI Screening Adult BMI Screen ing [facility] Start: 08-09-2024 Depression Screening Depression Scre ening [facility] Start: 08-09-2024 Tobacco Screening Tobacco Screening [facility] Start: 05-18-2024 Adult BMI Screening Adult BMI Screen ing [facility] Start: 05-18-2024 Depression Screening Depression Scre ening [facility] Start: 05-18-2024 Tobacco Screening Tobacco Screening [facility] Start: 02-02-2024 Adult BMI Follow Up Plan Adult BMI Follow Up Plan [facility] Start: 11-09-2023 End: 11-09-2023 Patient encounter procedure 11/09/2023 1:30 PM EDT Office Visit [facility] - Family Medicine [address] [place] [address] Maria E Graham, WATERWORKS OPERATOR-CAREER SERVICES REPRESENTATIVE [address] [place] [address] [facility] Start: 08-09-2023 End: 08-09-2023 Patient encounter procedure 08/09/2023 1:00 PM EST Office Visit [facility] - Family Medicine [address] [place] [address] Maria E Graham, WATERWORKS OPERATOR-CAREER SERVICES REPRESENTATIVE [address] [place] [address] [facility] Start: 03-31-2023 COVID-19 Vaccine ( season) COVID-19 Vaccine ( season) [facility] Start: 03-31-2023 Influenza vaccination Influenza Vacc ine [facility] Start: 2017 Administration of varicella zoster vaccine Zoster (Shingles) Vaccine (1 of 2) [facility] Start: 2012 Screening for malign ant neoplasm of colon Colonoscopy [facility] Start: 1986 DTaP,Tdap and Td Vac cines (1 - Tdap) DTaP,Tdap and Td Vaccines (1 - Tdap) [facility] End: 08-09-2024 Hemoglobin A1c/Hemoglobin.total in Blood Hemoglobin A1c Lab Routine Blood tests for routine general physical examination 1 Occurrences starting 08/09/2023 until 08/09/2024 [facility] Work Phone: Comment on above: 1 Occurrences starti ng 08/09/2023 until 08/09/2024 Hemoglobin A1c/Hemoglobin.total in Blood Hemoglobin A1c Lab Routine Blood tests for routine general physical examination 08/09/2023 9:48 PM EST [facility] Immunizations Immunization Date Immunization Notes Care Provider Alicia rose 08-15-2021 SARS-CoV-2 (COVID-19 ) mRNA BNT-162b2 [employer] [facility] 07-17-2021 SARS-CoV-2 (COVID-19 ) mRNA BNT-162f0 [employer] [facility] NEGATED: Highlighted row has not occurred!04-13-2023 influenza virus vaccine, unspecified formulation Yvette Andreea [facility] Payers Date Payer Category Payer Medicaid [employer] [id number] 2003-Present [phone] [address] [place] [address] [id number] 1967 Unknown [id number] 1967 Unknown [id number] [id number] 1967 Unknown [id number] 2.16.840.1.439660.3.579.2.593 1967 Unknown [id number] 2.16.840.1.563182.3.579.2.593 1967 Unknown [id number] 2.16.840.1.048190.3.579.2.1286 1967 Unknown [id number] 2.16.840.1.068180.3.579.2.1286 1967 Unknown [id number] 2.16.840.1.200292.3.579.2.1286 1967 Unknown [id number] 2.16.840.1.382442.3.579.2.1286 1967 Unknown [id number] 2.16.840.1.486835.3.579.2.727 1967 Unknown [id number] 2.16.840.1.263319.3.579.2.727 1967 Unknown [id number] 2.16.840.1.398348.3.579.2.727 1967 Unknown [id number] 2.16.840.1.567873.3.579.2.727 1967 Unknown [id number] 2.16.840.1.907264.3.579.2.1286 1967 Unknown [id number] 2.16.840.1.535731.3.579.2.1286 1967 Unknown [id number] 2.16.840.1.311073.3.579.2.1286 1959 Unknown [id number] Social History Date Type Detail Facility Start: 06-29-2022 End: 02-08-2024 Tobacco smoking status Ex-smoker (finding) [facility] Start: 03-03-2022 End: 08-09-2023 Sex Assigned At Male [facility] Tobacco smoking status Never Radha [facility] End: 03-21-2018 History of tobacco use Current smoker [facility] End: 03-21-2018 History of tobacco use Cigarette Smoker [facility] Start: 03-03-2022 End: 05-18-2023 Cigarettes smoked current (pack per day) - Reported 1 [facility] Start: 05-18-2023 Tobacco use and exposure Smoke less tobacco non-user [facility] Start: 05-18-2023 End: 08-09-2023 Alcohol intake Ex-drinker (finding) [facility] Do you belong to any clubs or organizations such as christianity groups, unions, fraDaric or athletic groups, or school groups? No [facility] Are you now , , , , never or living with a partner? [facility] How often to you hav e a drink containing alcohol? Never [facility] How hard is it for y ou to pay for the very basics like food, housing, medical care, and heating Somewhat hard [facility] Do you feel stress - tense, restless, nervous, or anxious, or unable to sleep at night because your mind is troubled all the time - these days [OSQ] Very much [facility] Start: 09-07-2020 Education 11 [facility] Start: 05-18-2023 Tobacco Comment former smoker [facility] Start: 1965 Sex Assigned At Not on file [facility] Functional Status Date Assessment Result Facility 02-08-2024 Functional Status N/A [facility] 04-13-2023 Functional Status N/A [facility] 03-01-2023 Functional Status N/A [facility] 12-29-2022 Functional Status N/A [facility] 08-08-2022 Functional Status N/A [facility] 06-29-2022 Functional Status No [facility] Clinical Notes 12-25-2020 to 02-08-2024 LaboratoryRadiologyLaboratoryRadiologyTelephone Encounter - EH Carter - 10/18/2023 12:15 PM EDTTelephone Encounter - EH Carter - 10/18/2023 12:15 PM EDT Note Date & Type Note Facility 02-08-2024 Evaluation + Plan note Future Scheduled TestsPT & PTT 02/08/24PT & PTT 08/10/24HCV RT-PCR, Quant (Non-Graph) 07/14/23Hepatitis A Virus (HAV) Antibody, Total 02/08/24Vitamin D 25 Hydroxy 02/08/24Alpha Fetoprotein Tumor Marker 02/08/24Alpha Fetoprotein Tumor Marker 08/10/24Alpha Fetoprotein Tumor Marker 02/08/24Alpha Fetoprotein Tumor Marker 08/10/24CBC w/ Auto Diff 02/08/24CBC w/ Auto Diff 08/10/24CBC w/ Auto Diff 02/08/24CBC w/ Auto Diff 08/10/24Comprehensive Metabolic Panel 02/08/24Comprehensive Metabolic Panel 08/10/24Comprehensive Metabolic Panel 02/08/24Comprehensive Metabolic Panel 08/10/24PT 02/08/24PT 08/10/24US Liver 02/08/24US Liver 02/08/24 [facility] 02-08-2024 Evaluation + Plan note Future Scheduled TestsPT & PTT 02/08/24PT & PTT 08/10/24HCV RT-PCR, Quant (Non-Graph) 07/14/23Hepatitis A Virus (HAV) Antibody, Total 02/08/24Vitamin D 25 Hydroxy 02/08/24Alpha Fetoprotein Tumor Marker 02/08/24Alpha Fetoprotein Tumor Marker 08/10/24Alpha Fetoprotein Tumor Marker 02/08/24Alpha Fetoprotein Tumor Marker 08/10/24CBC w/ Auto Diff 02/08/24CBC w/ Auto Diff 08/10/24CBC w/ Auto Diff 02/08/24CBC w/ Auto Diff 08/10/24Comprehensive Metabolic Panel 02/08/24Comprehensive Metabolic Panel 08/10/24Comprehensive Metabolic Panel 02/08/24Comprehensive Metabolic Panel 08/10/24PT 02/08/24PT 08/10/24US Liver 02/08/24 [facility] 10-18-2023 Miscellaneous Notes The OARRS/MAPPS database was reviewed today and found to be appropriate. No indication of medication diversion, or non compliance. Last fill alprazolam 1 mg TID # 90 tablets no refills Diagnosis: Generalized anxiety with panic attacks. PTSD documented in this encounter [facility] 10-18-2023 Telephone encounter Note The OARRS/MAPPS database was reviewed today and found to be appropriate. No indication of medication diversion, or non compliance. Last fill alprazolam 1 mg TID # 90 tablets no refills Diagnosis: Generalized anxiety with panic attacks. PTSD [facility] 08-28-2023 History of Presen t illness Narrative The OARRS/MAPPS database was reviewed today and found to be appropriate. No indication of medication diversion, or non compliance. Last fill alprazolam 1 mg TID # 90 tablets no refills Diagnosis: Generalized anxiety with panic attacks. PTSD EH Carter APRN-CNP 08/28/23 0905 documented in this encounter [facility] 08-21-2023 Miscellaneous Notes I'm holding this. He called way to early for refill. Not due to fill until August 30. documented in this encounter [facility] 08-21-2023 Telephone encounter Note I'm holding this. He called way to early for refill. Not due to fill until August 30. [facility] 08-09-2023 History of Presen t illness Narrative Images from the original note were not included. [address] [place] [address] SUBJECTIVE: Patient ID: Qing Clark is [...] Back pain 2014 CHF (congestive heart failure) ([facility]) 2014 COPD (chronic obstructive pulmonary disease) ([facility]) Emphysema of lung ([facility]) 2014 Hepatitis C Immunization History Administered Date(s) [...] Carter 08/09/23 1451 [facility] Miscellaneous Notes The OARRS/MAPPS database was reviewed today and found to be appropriate. No indication of medication diversion, or non compliance. Fill alprazolam 1 mg TID # 90 tablets no refills Diagnosis: Generalized anxiety with panic attacks. PTSD [facility] 07-24-2023 Telephone encounter Note The OARRS/MAPPS database was reviewed today and found to be appropriate. No indication of medication diversion, or non compliance. Fill alprazolam 1 mg TID # 90 tablets no refills Diagnosis: Generalized anxiety with panic attacks. PTSD [facility] 05-10-2023 Note - From: Levi Uribe N To: [facility] - Administrative; Sent: 04/13/2023 11:10:23 EDT Show up: 04/13/2023 11:10:00 EDT Subject: Ambulatory Reminder Due Date/Time: 05/25/2023 11:10:00 EDT Reminder/Recall Patient needs a call when insurance is active with Dr. Thomas with a 2 month follow up/Hep C. Patient has Medicaid [place]. [facility] 04-13-2023 Hospital Discharg e instructions Patient [...] anemia. Follow these instructions at home: Take ntrk-jxg-cprlsvx and prescription medicines only as told by [...] provider. Document Revised: 12/30/2021 Document Reviewed: 12/30/2021 2d2c Patient Education 2022 [employer]. Follow Up Care 03/14/2023 16:27:44 With:William BAR, SHAY Duke, [facility] Address: [address], [address] [phone] When:1 month [facility] 03-02-2023 Note [id number]:127 [facility] 03-01-2023 Evaluation + Plan note Extrac abdirashid from: Title:ANES Post General Author:Pierce Cherry DO Date:03/01/23 Plan Transfer/Discharge: Patient exhibiting no signs of N/V. Hydration status is adequate. Extracted from: Title:Dilip Basic PRE Author:Poncho Cherry DO Date:03/01/23 Plan [place] [employer] Anesthesiologists (ASA) physical status classification: Class III. Anesthetic Preoperative Plan: Anesthesia General. Future Scheduled Tests Laboratory* HCV RT-PCR, Quant (Non-Graph) 04/06/23 * HCV RT-PCR, Quant (Non-Graph) 07/14/23 [facility]08-02-2023 Hospital Discharge instructions Patient Education 03/01/2023 09:33:47 Endoscopy, Care After Procedure [facility] ([facility]UST[facility]) Endoscopy Care After Procedure Please read the instructions outlined below and refer to this sheet in the next few weeks. These discharge instructions provide you with general information on caring [facility] Your doctor may also give you [...] 02/28/2005 Document Re-Released: 01/08/2007 ExitCare Patient Information 2010 Global Weather. 03/01/2023 09:33:42 [facility] NSAIDS-Nonsteroidal Anti-Inflammatory Medications (CUSTOM) Nonsteroidal Anti-Inflammatory Medications [...] pain neck pain Some NSAIDs are available cepu-jce-bwnaksc, without the need for a prescription. However, [...] than your doctor has prescribed. Follow the zstq-thr-zfbfuwr labels and do not exceed the recommended [...] Care 12/29/2022 14:19:42 With:ELIANA BAR, SHAY Lemons, [facility] Address: [facility] [address] [place] [address] [facility] (1) When: Unknown Comments:Call for any problems. Office to call for follow up appt. [facility]08-02-2023 NoteEndoscopy Care After Procedure Please read the instructions outlined below and refer to this sheet in the next few weeks. These discharge instructions provide you with general information on caring for [facility] Your doctor may also give you [...] Document Re-Released: 01/08/2007 ExitCare? Patient Information ?2009 Global Weather. Nonsteroidal Anti-Inflammatory Medications (NSAIDS) Non-steroidal anti-inflammatory drugs [...] ? neck pain Some NSAIDs are available yilo-vio-gxmabtr, without the need for a prescription. However, [...] than your doctor has prescribed. Follow the ehlz-tly-gfdlusc labels and do not exceed the recommended [...] I should know about (more content not included)...[facility]01-11-2023 Hospital Discharge instructions Patient Education 08/10/2022 12:16:35 [facility] NSAIDS-Nonsteroidal Anti-Inflammatory Medications (Custom) Nonsteroidal Anti-Inflammatory Medications [...] pain neck pain Some NSAIDs are available wmvi-qqf-dlicdft, without the need for a prescription. However, [...] than your doctor has prescribed. Follow the fchi-njq-jlcrhrx labels and do not exceed the recommended [...] Up Care 06/29/2022 11:15:22 With:Cristo MONROY Address: [facility] [address] [place] [address] [facility] (1) When: Unknown Comments:Call Dr. Zayas office to reschedule liver biopsy [facility]01-09-2023 Hospital Discharge instructions Patient Education 08/08/2022 12:54:09 Colonoscopy, Care After Surgery Eliana (ANDI) Colonoscopy Care After Surgery Please read the [...] unsweetened, w/added ascorbic acid 1 cup 0.5 [place] 1 cup 0.7 Vegetables Cooked Green beans 1 cup 4.0 Carrots 1/2 cup sliced 2.3 Peas 1 cup 8.8 Potato (baked, with skin) 1 medium potato 3.8 Raw [place] (with peel) 1 cucumber 1.5 Lettuce 1 [...] 8.7 Peanuts 1/2 cup 7.9 Chart from [facility] 2013. SEEK IMMEDIATE MEDICAL CARE [...] Reference. Available at http://www.nal.usda.gov/fnic/foodcomp/search/. Information adapted from: [facility] Patient Information 2009 Global Weather. [facility] HospitalKonutkredisi.com.tr 2012 http://www.ASOCS/contents/xaateqedtbwi-elynxvm-hzlkfa-the-basics 08/08/2022 12:54:09 Colon Polyps Colon Polyps Polyps [...] 04/12/2005 Document Revised: 11/01/2018 Document Reviewed: 11/01/2018 2d2c Patient Education 2020 Timehop. Follow Up Care 08/05/2022 14:44:08 With:Cristo MONROY Address: [address] [place], [place] [address]justin. [address] [place] [address] Business (1) When: Unknown Comments:office will call for follow up [facility]01-09-2023 Evaluation + Plan noteExtracted from: Title:Post-anesthesia - General Author:Edis Eaton DO Date:08/08/22 Plan Transfer/ Discharge: Condition stable. Extracted from: Title:Pre-anesthesia - Endoscopy Author:Edis Ruvalcaba Jr., DO Date:08/08/22 Plan [place] [employer] Anesthesiologists (ASA) physical status classification: Class II. Anesthetic Preoperative Plan Anesthesia: General. . Anesthetic plan, risks, benefits, and alternatives discussed with the patient and/or family. Patient verbalized understanding. Future Appointments Appointment Date:08/10/2022 12:00:00 PM Scheduled Provider: Location:[facility] Appointment Type:Surgery FT Appointment Date:10/05/2022 10:00:00 AM Scheduled Provider:Cristo MONROY MD Location:[facility] Appointment Type:[facility] Follow Up Diagnostic Tests Pending * Urine 7 Drugs+Alcohol 08/08/22 * HCV RNA by PCR, Qn Rfx Rae 08/08/22 * Hepatitis B Surface Antibody 08/08/22 * HIV Screen 4th Generation wRfx 08/08/22 [facility]10-14-2022 Hospital Discharge instructions Follow Up Care 05/13/2022 14:26:19 With:ELIANA BAR, Cristo, [facility], [facility] Address: [facility] [address] [place] [address]- When:3 months [facility] [id number] NotePROCEDURE: XR WRIST LT MIN 3 V COMPARISON: None. HISTORY: Pain FINDINGS: BONES:No acute fracture or dislocation. Mild degenerative changes most significant along the scaphoid trapezoid joint SOFT TISSUES:Mild soft tissue swelling EFFUSION:None visible. OTHER: Negative. IMPRESSION: No acute fracture Electronically authenticated by: CHRISTOPHER VALLE Date: 2020-12-25 20:59[facility] Future Appointments Appointment Date:07/13/2022 09:30:00 AM Scheduled Provider: Location:.[facility] Appointment Type:US Abdominal/Pelvis (FT) Appointment Date:07/13/2022 10:00:00 AM Scheduled Provider: Location:[facility] Appointment Type:Surgery FT Appointment Date:08/08/2022 01:10:00 PM Scheduled Provider: Location:[facility] Appointment Type:Surgery FT Future Scheduled Tests Laboratory* Lab Miscellaneous-LC 06/29/22 * HCV RNA by PCR, Qn Rfx Rae 06/29/22 * HIV Screen 4th Generation wRfx 06/29/22 * Hepatitis B Surface Antibody 06/29/22 Radiology* US Liver 07/13/22 [facility] Evaluation + Plan note Future Appointments Appointment Date:08/08/2022 01:10:00 PM Scheduled Provider: Location:[facility] Appointment Type:Surgery FT Future Scheduled Tests Laboratory* Lab Miscellaneous-LC 06/29/22 * HCV RNA by PCR, Qn Rfx Rae 06/29/22 * HIV Screen 4th Generation wRfx 06/29/22 * Hepatitis B Surface Antibody 06/29/22 [facility] Future Appointments Appointment Date:10/05/2022 10:00:00 AM Scheduled Provider:Cristo MONROY MD Location:[facility] Appointment Type:[facility] Follow Up [facility] Future Appointments Appointment Date:10/13/2022 08:00:00 AM Scheduled Provider: Location:[facility] Appointment Type:Surgery FT [facility] Evaluation + Plan note Future Appointments Appointment Date:02/16/2023 01:55:00 PM Scheduled Provider: Location:[facility] Appointment Type:Surgery FT Future Scheduled Tests Laboratory* CBC w/ Indices 12/29/22 * Comprehensive Metabolic Panel 12/29/22 * PT 12/29/22 Radiology* US Liver 12/29/22 [facility] Evaluation + Plan note Future Appointments Appointment Date:02/16/2023 01:55:00 PM Scheduled Provider: Location:[facility] Appointment Type:Surgery FT Future Scheduled Tests Laboratory* HCV RT-PCR, Quant (Non-Graph) 02/09/23 * HCV RT-PCR, Quant (Non-Graph) 04/06/23 * HCV RT-PCR, Quant (Non-Graph) 07/14/23 * CBC w/ Indices 12/29/22 * Comprehensive Metabolic Panel 12/29/22 * PT 12/29/22 [facility] Future Appointments Appointment Date:02/16/2023 01:55:00 PM Scheduled Provider: Location:[facility] Appointment Type:Surgery FT Diagnostic Tests Pending * HCV RT-PCR, Quant (Non-Graph) 02/07/23 Future Scheduled Tests Laboratory* HCV RT-PCR, Quant (Non-Graph) 04/06/23 * HCV RT-PCR, Quant (Non-Graph) 07/14/23 [facility] Future Appointments Appointment Date:04/13/2023 10:40:00 AM Scheduled Provider:Yvette Doran CNP Location:[facility] Appointment Type:[facility] Follow Up Diagnostic Tests Pending * HCV RT-PCR, Quant (Non-Graph) 04/06/23 Future Scheduled Tests Laboratory* HCV RT-PCR, Quant (Non-Graph) 07/14/23 [facility] Future Scheduled Tests Laboratory* HCV RT-PCR, Quant (Non-Graph) 07/14/23 [facility] Evaluation note* Diagnosis Narcotic drug use Generalized anxiety disorder with panic attacks PTSD (post-traumatic stress disorder) Posttraumatic stress disorder [facility]* Diagnosis Annual physical exam- Primary [...] major depressive disorder without prior episode (CMS-HCC) documented in this encounter [facility]* Diagnosis Narcotic drug use Generalized anxiety disorder with panic attacks PTSD (post-traumatic stress disorder) Posttraumatic stress disorder documented in this encounter [facility]* Diagnosis COPD mixed type (CMS-HCC) documented in this encounter [facility] Narrative No data available for this section [facility] Hospital Discharge instructions No data available for this section [facility] HospitalInstructionsNot on filedocumented in this encounter [facility] SystemInstructions* Attachments The following attachments cannot be sent through Care Everywhere. * Hepatitis C ([place]osotho) * Vitamin D deficiency ([place]osoth[place]) documented in [facility] SystemInstructionsNot on file documented in this encounterProMedide Health SystemInstructionsNot on file documented in this encounterProMedide Health SystemInstructionsNot on file documented in this encounterPro[facility] SystemInstructionsNot on file documented in [facility]Pro[facility] SystemProgress note No data available for this section [facility] Summary Purpose Family History No Family History Records FoundNo Family History Records FoundNo Family History Records FoundNo Family History Records Found No data available for this section No Family History Records Found No data available for this section Advance Directives No Advanced Directives Records FoundNo Advanced Directives Records FoundNo Advanced Directives Records FoundNo Advanced Directives Records FoundNo Advanced Directives Records Found Additional Source Comments (unrecognized sect ion and content) No Status Records FoundNo Status Records FoundNo Status Records FoundNo Status Records FoundNo Status Records Found INFORMATION SOURCE (unrecogn ized section and content) DATE CREATED AUTHOR 12/31/2020 [facility] DATE CREATED AUTHOR AUTHOR'S ORGANIZ ATION 11/11/2023 [facility] DATE CREATED AUTHOR AUTHOR'S ORGANIZ ATION 11/19/2023 [facility] DATE CREATED AUTHOR AUTHOR'S ORGANIZ ATION 02/13/2024 [facility] DATE CREATED AUTHOR AUTHOR'S ORGANIZ ATION 02/14/2024 [facility] Patient Care team informatio n (unrecognized section and content) Personnel Name: MARIA E GRAHAM CNP Address: Address: [address] [place], [place] [address] [employer] Relationship Specialty Start Date End Date Maria E Graham APRN-CNP [address] [place] [address] PCP - General Family Medicine 03/22/19 [employer] Relationship Specialty Start Date End Date Maria E Graham APRN-CNP [address] [place] [phone] PCP - General Family Medicine 03/22/19 [employer] Relationship Specialty Start Date End Date Maria E Graham APRN-CNP [address] [place] [phone] PCP - General Family Medicine 03/22/19 [employer] Relationship Specialty Start Date End Date [facility] [address] [place] [address] PCP - [facility] 03/22/19 [employer] Relationship Specialty Start Date End Date [facility] [address] [place] [address] PCP - [facility] 03/22/19 [employer] Relationship Specialty Start Date End Date Maria E Graham APRNCAREER SERVICES REPRESENTATIVE [address] [place] [address] PCP - General Family Medicine 03/22/19 Reason [...] BE BASED ON THE PRIMARY CLINICAL RECORDS. [employer] provides no warranty or guarantee of the accuracy or completeness of information in this document.
[2024-02-19] MEDS: DULOXETINE HCL 60 MG CAPSULE.DR PO (20:33)
[2024-02-19] MEDS: DICLOFENAC SODIUM 25 MG TABLET.DR 75 MG PO (20:33)
[2024-02-19] MEDS: ALPRAZOLAM 1 MG TABLET PO (21:08)
[2024-02-19] MEDS: HYDROCODONE/ACET 5-325 MG TABLET 2 TAB PO (21:08)
[2024-02-19] MEDS: SUCRALFATE 1 GM TABLET PO (21:08)
[2024-02-19] MEDS: TIZANIDINE HCL 4 MG TABLET 8 MG PO (21:08)
[2024-02-19] MEDS: ENOXAPARIN SODIUM 40 MG/0.4 ML SYRINGE SUBQ (21:09)
[2024-02-20] VITALS (24 sets, daily range): BP systolic 108–220; BP diastolic 74–109; PULSE 63–95; TEMP 36.4–36.7; O2SAT 89–94
[2024-02-20] MEDS: 0.9 % SODIUM CHLORIDE 1,000 ML 125 ML IV ×2 (00:18→08:19)
[2024-02-20] MEDS: HYDRALAZINE HCL 20 MG/ML VIAL 10 MG IVP ×2 (04:07→13:20)
[2024-02-20] MEDS: HYDROMORPHONE HCL 1 MG/ML CARTRIDGE IVP ×3 (04:08→23:28)
[2024-02-20 06:00] LABS: Basophils Absolute Auto 0.1 10^3/uL (0.0-0.1); Basophils Percent Auto 0.7 % (0.2-2.0); Eosinophils Absolute Auto 0.2 10^3/uL (0.0-0.7); Hematocrit 45.6 % (42.0-54.0); Hemoglobin 15.1 g/dL (14.0-18.0); Immature Granulocytes Abs Auto 0.04 10^3/uL (0.00-0.03); Immature Granulocytes Pct Auto 0.4 % (0.0-0.5); Lymphocytes Absolute Auto 3.3 10^3/uL (1.2-3.8); Lymphocytes Percent Auto 30.5 % (20.5-60.0); Mean Corpuscular HGB Conc 33.1 g/dL (29.9-35.2); Mean Corpuscular Hemoglobin 30.3 pg (25.9-34.0); Mean Corpuscular Volume 91.6 fL (80.0-94.0); Monocytes Absolute Auto 1.2 10^3/uL (0.3-0.8); Monocytes Percent Auto 11.3 % (1.7-12.0); Neutrophils Percent Auto 55.1 % (43.0-75.0); Platelet Count 235 10^3/uL (150-450); Red Blood Count 4.98 10^6/uL (4.70-6.10); Red Cell Distribution Width 14.5 % (11.0-15.0); White Blood Count 10.9 10^3/uL (4.0-11.0)
[2024-02-20 06:10] LABS: Alanine Aminotransferase 61 U/L (16-63); Albumin Globulin Ratio 0.9; Albumin Level 3.3 g/dL (3.4-5.0); Alkaline Phosphatase 78 U/L (46-116); Anion Gap 11.1; Aspartate Amino Transferase 40 U/L (15-37); BUN Creatinine Ratio 19.4; Bilirubin Total 0.7 mg/dL (0.2-1.0); Calcium 8.6 mg/dL (8.5-10.1); Carbon Dioxide 24.8 mmol/L (21.0-32.0); Chloride 103 mmol/L (98-107); Estimated GFR (African America >60 (>=60); Estimated GFR (Non-African Ame >60 (>=60); Globulin 3.8 g/dL; Glucose 99 mg/dL (74-106); Potassium 3.9 mmol/L (3.5-5.1); Sodium 135 mmol/L (136-145); Total Protein 7.1 g/dL (6.4-8.2)
[2024-02-20] MEDS: SUCRALFATE 1 GM TABLET PO ×4 (07:56→21:36)
[2024-02-20] MEDS: METOPROLOL SUCCINATE 50 MG TAB.ER.24H PO ×2 (08:15→10:02)
[2024-02-20] MEDS: DULOXETINE HCL 60 MG CAPSULE.DR PO ×2 (08:15→21:36)
[2024-02-20] MEDS: DICLOFENAC SODIUM 25 MG TABLET.DR 75 MG PO (08:15)
[2024-02-20] MEDS: HYDROCODONE/ACET 5-325 MG TABLET 1 TAB PO (08:15)
[2024-02-20] MEDS: TAMSULOSIN HCL 0.4 MG CAPSULE PO (08:15)
--- NOTE | 2024-02-20 08:47 | P.HP_ITS ---
HPI H&P: HPI History of Present Illness Chief complaint: BACK PAIN, FLANK PAIN Narrative: Patient is a 58 y.o white male with past medical history of cirrhosis of the liver (prior alcoholic quit 6 years ago), COPD, HTN, anxiety, who suffered a fall into a cellar about 1 week ago. He was admitted to this facility on 02/13/24 after the fall with old compression fractures of T11-L3 that were also noted on 2018 exam, and acute left 8th rib fracture. Patient was treated for pain control overnight and discharged home the next day. He has been taking muscle relaxers and diclofenac for pain. He returned to the ER last night with increased left sided pain, denies fevers but states cough, pain worse with cough and not able to take deep breaths. ER findings: Chest CTA: mildly displaced subacute fractures of the 10-12 ribs on the left with patchy opacities in both lower lobes, liver cirrhosis and moderate diverticulosis. WBC 14.9, hb 15.1, Cr 0.62, AST 40, ALT 61. Trop normal Opioid HPI Opioid Management Most Recent Pain and Opioid Data: Last Pain Scale 7 02/20/24 10:00 Last Pain Assessment 02/20/24 10:00 Last MAR Pain Assessment 02/20/24 08:15 Last ORT Total Score 3 02/19/24 20:21 Last ORT Risk Category Low Risk 02/19/24 20:21 Review of Systems ROS Narrative ROS: a complete review of systems were reviewed with patient and are positive as below or listed in History of Chief Complaint. General: no fever, chills, night sweats Head: no headache, trauma, visual changes, nausea or vomiting Skin: bruising over the left lateral chest wall and lower right leg Eyes: no blurriness of vision Ears: no reported hearing loss, vertigo, earache, or tinnitus Throat: no sore throat, hoarseness, swelling of neck, or tongue pain Heart: no chest pain Lungs: shortness of breath and cough GI: no diarrhea or vomiting/nausea Urinary: no urinary urgency, frequency or pain Neuro: no numbness or tingling HEM: no bleeding issues or bruising ENDO: no thyroid problems Psych: no anxiety or depression [facility] Medical History (Updated 02/20/24 @ 11:16 by Sherine Rasheed DO) Closed lumbar vertebral fracture ?S32.009A - Unspecified fracture of unspecified lumbar vertebra, initial encounter for closed fracture (ICD-10) Fracture of multiple thoracic vertebrae ?S22.009A - Unspecified fracture of unspecified thoracic vertebra, initial encounter for closed fracture (ICD-10) Fracture of rib ?S22.39XA - Fracture of one rib, unspecified side, initial encounter for closed fracture (ICD-10) Fall ?W19.XXXA - Unspecified fall, initial encounter (ICD-10) Cirrhosis of liver ?K74.60 - Unspecified cirrhosis of liver (ICD-10) COPD (chronic obstructive pulmonary disease) ?J44.9 - Chronic obstructive pulmonary disease, unspecified (ICD-10) Surgical History History of esophagogastroduodenoscopy (EGD) ?Z98.890 - Other specified postprocedural states (ICD-10) Family History Mother Family history of COPD (chronic obstructive pulmonary disease) Family history of stroke Father Family history of hypertension Social History Within the past year, how often did you have a drink containing alcohol: never Within the past year, how many standard drinks containing alcohol did you have on a typical day: 1 or 2 Within the past year, how often did you have six or more drinks on one occasion: never Total score: 0 Score interpretation: A score less than 4 is consistent with normal alcohol consumption. Smoking status: Former smoker Non-prescribed substance use: denies use Previous occupational history: disability Known occupational exposures/hazards: No Highest level of school completed/degree received: 11th grade Are you now , , , , never or living with a partner: In a typical week, how many times do you talk on the telephone with family, friends, or neighbors: 3 or more times per week How often do you get together with friends or relatives: 3 or more times per week How often do you attend nondenominational or cheondoism services: 4 or more times per year Do you belong to any clubs or organizations such as nondenominational groups unions, fraternal or athletic groups, or school groups: no Total score: 3 Score interpretation: A score of greater than or equal to 2 indicates the lowest level of social isolation. Little interest or pleasure in doing things: not at all Feeling down, depressed, or hopeless: not at all Feel stressed/tense/nervous/anxious/difficulty sleeping: not at all Due to disability, difficulty making decisions: No Do you think of yourself as: straight/heterosexual Gender Identity: male Meds Home Medications and Allergies Home Medications ?Medication ?Instructions ?Recorded ?Confirmed ?Type albuterol sulfate 90 mcg/actuation 2 puff inhalation Q6H PRN 02/13/24 02/19/24 History aerosol inhaler shortness of breath or wheezing alprazolam 1 mg tablet 1 mg PO TID PRN anxiety 02/13/24 02/19/24 History cholecalciferol (vitamin D3) 1,250 1,250 mcg PO QWEEK 02/13/24 02/19/24 History mcg (50,000 unit) capsule duloxetine 60 mg capsule,delayed 60 mg PO BID 02/13/24 02/19/24 History release metoprolol succinate 50 mg 50 mg PO QAM 02/13/24 02/19/24 History tablet,extended release 24 hr sucralfate 100 mg/mL oral 1 g PO ACHS 02/13/24 02/19/24 History suspension tamsulosin 0.4 mg capsule 0.4 mg PO QAM 02/13/24 02/19/24 History diclofenac sodium 75 mg 75 mg PO BID #30 tabs 02/14/24 02/19/24 Rx tablet,delayed release tizanidine 4 mg capsule 8 mg (2 x 4 mg) PO .qhs PRN muscle 02/14/24 02/19/24 Rx spasticity #20 caps Allergies Allergy/AdvReac Type Severity Reaction Status Date / Time Penicillins Allergy Severe Hives Verified 02/13/24 14:10 Exam Narrative Exam Narrative: General: Patient is alert, and oriented to person, place and time with normal affect, proper hygiene Skin: large ecchymosis of the left lateral chest wall, and healing ecchymosis of the anterior right tibial region Head: atraumatic, acephalic Eyes: PERRLA, no nystagmus present, conjunctiva clear, no scleral icterus Ears: normal Tympanic Membrane, normal gross auditory acuity Nose: symmetric, no discharge, no maxillary or frontal sinus tenderness Mouth/Throat: poor dentition Heart: Normal rate and rhythm, no murmurs/rubs/gallops Lungs: audible crackles bilateral lower bases Abdomen: Normal audible bowel sounds, no distension, No palpable masses, no organomegaly, no rebound/guarding/ or rigidity Musculoskeletal: no swelling bilateral lower extremities Neuro: CN II-X grossly intact Constitutional Vital Signs, click to edit/add: Last Vital Signs Temp 97.9 F 02/20/24 08:00 Pulse 76 02/20/24 08:00 Resp 18 02/20/24 08:00 BP 203/101 H 02/20/24 08:00 Pulse Ox 91 L 02/20/24 08:00 O2 Del Method Room Air 02/20/24 08:00 O2 Flow Rate 2 02/20/24 04:50 Results Labs Labs: Short CBC 02/19/24 02/20/24 Range/Units 14:18 05:26 WBC 14.9 H 10.9 (4.0-11.0) 10^3/uL Hgb 16.3 15.1 (14.0-18.0) g/dL Hct 47.1 45.6 (42.0-54.0) % Plt Count 287 235 (150-450) 10^3/uL BMP 02/19/24 02/20/24 14:18 05:26 Sodium 139 135 L Potassium 3.8 3.9 Chloride 102 103 Carbon Dioxide 26.1 24.8 BUN 8.0 12.0 Creatinine 0.74 0.62 L Glucose 127 H 99 Calcium 9.1 8.6 Liver Function 02/19/24 02/20/24 Range/Units 14:18 05:26 Total Bilirubin 0.8 0.7 (0.2-1.0) mg/dL AST 57 H 40 H (15-37) U/L ALT 77 H 61 (16-63) U/L Alkaline Phosphatase 86 78 (46-116) U/L Albumin 4.1 3.3 L (3.4-5.0) g/dL Urine 02/19/24 Range/Units 15:45 Urine Color Lt. yellow (YELLOW) Urine Clarity Clear (CLEAR) Urine pH 7.0 (5.0-9.0) Ur Specific [place] <=1.005 A (1.005-1.025) Urine Protein Negative (NEG/TRACE) mg/dL Urine Glucose (UA) Negative (NEGATIVE) mg/dL ABG ABG results: 02/19/24 14:18 VBG pH 7.412 VBG pCO2 40.0 Assessment and Plan Assessment and Plan (1) Community acquired pneumonia: Assessment and Plan: as seen with elevated WBC's and chest CT. Will treat with Levaquin 500mg IV daily, PRN duonebs and OPEP Qualifiers: Laterality: left Lung location: lower lobe of lung Qualified Code(s): J18.9 - Pneumonia, unspecified organism (2) Multiple fractures of ribs: Assessment and Plan: stop diclofenac and place on IV Toradol as needed, dilaudid as needed and PO norco. Will also try lidocaine patch Qualifiers: Encounter type: initial encounter Fracture type: closed Laterality: left Qualified Code(s): S22.42XA - Multiple fractures of ribs, left side, i nitial encounter for closed fracture (3) Tachycardia: Assessment and Plan: resolved with IV lopressor, increase metoprolol to 100mg daily, Stop zanaflex (4) Closed lumbar vertebral fracture: Assessment and Plan: old, seen on prior CT. Qualifiers: Encounter type: subsequent encounter Fracture morphology: wedge compression Lumbar vertebra fracture level: unspecified lumbar vertebra Fracture healing: with routine healing Qualified Code(s): S32.000D - Wedge compression fracture of unspecified lumbar vertebra, subsequent encounter for fracture with routine healing (5) Fracture of multiple thoracic vertebrae: Assessment and Plan: old seen on prior CT Qualifiers: Encounter type: subsequent encounter Fracture type: closed Fracture healing: with routine healing Qualified Code(s): S22.009D - Unspecified fracture of unspecified thoracic vertebra, subsequent encounter for fracture with routine healing (6) Cirrhosis of liver: Assessment and Plan: monitor liver enzymes. Qualifiers: Hepatic cirrhosis type: alcoholic cirrhosis Ascites presence: without ascites Qualified Code(s): K70.30 - Alcoholic cirrhosis of liver without ascites (7) COPD (chronic obstructive pulmonary disease): Assessment and Plan: PRN duonebs. Qualifiers: COPD type: unspecified COPD Qualified Code(s): J44.9 - Chronic obstructive pulmonary disease, unspecified (8) Elevated blood pressure reading with diagnosis of hypertension: Assessment and Plan: increase metoprolol Plan Patient is a full code patient was made inpatient status due to pneumonia, pain/rib fractures, tachycardia requiring 2-3 days of treatment for medically necessary hospital care.
--- NOTE | 2024-02-20 11:03 | CM.NOTE ---
Rounds made with Dr. Rasheed. mireyaarely reviews his past history with Dr. Rasheed. Plan for today is adjust medications, add HHN prn and PEP device. Mr. Brooks in agreement.
[2024-02-20] MEDS: HYDROCODONE/ACET 5-325 MG TABLET 2 TAB PO (12:59)
[2024-02-20] MEDS: AMLODIPINE BESYLATE 5 MG TABLET 10 MG PO (15:10)
[2024-02-20] MEDS: LIDOCAINE 5% PATCH 1 PATCH TOPICAL (15:54)
[2024-02-20] MEDS: ALPRAZOLAM 1 MG TABLET PO ×2 (15:54→21:36)
[2024-02-20] MEDS: LEVOFLOXACIN IN DEXTROSE 5 % 500 MG/100 ML PIGGYBACK 100 MG IV (16:44)
[2024-02-20] MEDS: OXYCODONE HCL/ACETAMINOPHEN 5MG/325MG 1 TAB PO (21:36)
[2024-02-20] MEDS: ENOXAPARIN SODIUM 40 MG/0.4 ML SYRINGE SUBQ (21:36)
[2024-02-21] VITALS (10 sets, daily range): BP systolic 132–153; BP diastolic 67–95; PULSE 56–74; TEMP 36–37; O2SAT 91–94
[2024-02-21] MEDS: OXYCODONE HCL/ACETAMINOPHEN 5MG/325MG 1 TAB PO ×2 (05:13→12:56)
[2024-02-21 06:26] LABS: Basophils Absolute Auto 0.1 10^3/uL (0.0-0.1); Basophils Percent Auto 0.8 % (0.2-2.0); Eosinophils Absolute Auto 0.3 10^3/uL (0.0-0.7); Eosinophils Percent Auto 3.1 % (0.9-7.0); Hematocrit 46.1 % (42.0-54.0); Hemoglobin 15.3 g/dL (14.0-18.0); Immature Granulocytes Abs Auto 0.05 10^3/uL (0.00-0.03); Immature Granulocytes Pct Auto 0.5 % (0.0-0.5); Lymphocytes Absolute Auto 3.9 10^3/uL (1.2-3.8); Lymphocytes Percent Auto 40.1 % (20.5-60.0); Mean Corpuscular HGB Conc 33.2 g/dL (29.9-35.2); Mean Corpuscular Hemoglobin 30.4 pg (25.9-34.0); Mean Corpuscular Volume 91.7 fL (80.0-94.0); Mean Platelet Volume 11.2 fL (9.5-13.5); Monocytes Absolute Auto 1.2 10^3/uL (0.3-0.8); Monocytes Percent Auto 12.4 % (1.7-12.0); Neutrophils Absolute Auto 4.1 10^3/uL (1.4-6.5); Neutrophils Percent Auto 43.1 % (43.0-75.0); Platelet Count 241 10^3/uL (150-450); Red Blood Count 5.03 10^6/uL (4.70-6.10); Red Cell Distribution Width 14.6 % (11.0-15.0); White Blood Count 9.6 10^3/uL (4.0-11.0)
[2024-02-21 06:46] LABS: Alanine Aminotransferase 49 U/L (16-63); Albumin Globulin Ratio 0.9; Albumin Level 3.3 g/dL (3.4-5.0); Alkaline Phosphatase 83 U/L (46-116); Anion Gap 13.4; Aspartate Amino Transferase 34 U/L (15-37); BUN Creatinine Ratio 20.3; Bilirubin Total 0.6 mg/dL (0.2-1.0); Calcium 8.7 mg/dL (8.5-10.1); Carbon Dioxide 24.3 mmol/L (21.0-32.0); Chloride 105 mmol/L (98-107); Estimated GFR (African America >60 (>=60); Estimated GFR (Non-African Ame >60 (>=60); Globulin 3.7 g/dL; Glucose 108 mg/dL (74-106); Potassium 3.7 mmol/L (3.5-5.1); Sodium 139 mmol/L (136-145)
[2024-02-21] MEDS: KETOROLAC TROMETHAMINE 30 MG/ML VIAL 15 MG IVP (08:34)
[2024-02-21] MEDS: SUCRALFATE 1 GM TABLET PO ×2 (08:34→10:40)
--- NOTE | 2024-02-21 08:39 | XR_ITS ---
The [address] [address] Patient Name: QING CLARK MRN: [id number] date: 1965 Sex: M Assigned Patient Location: [place] Current Patient Location: Accession/Order Number: [id number] Exam Date: 02/21/2024 09:15 Report Date: 02/21/2024 09:39 At the request of: CHRISTOFER DODGE Procedure: XR chest 1V EXAM: XR chest 1V HISTORY: shortness of breath COMPARISON: CT angiography chest study dated 02/19/2024 TECHNIQUE: AP view of the chest was obtained with portable technique at 8:38 AM. FINDINGS: Heart and mediastinal contours are unremarkable in appearance. Mild patchy and linear density overlying the lower lung [place] compatible with mild atelectatic and/or infiltrative changes likely similar to the prior study. Previously noted left rib fractures not convincingly demonstrated likely due to difference in modality. No obvious pneumothorax. Mild degenerative changes in the dorsal spine with mild convexity to the right. XR/XR chest 1V IMPRESSION: Mild atelectatic and/or infiltrative changes in the lower lung [place]zon likely similar to prior study. No obvious pneumothorax. Electronically authenticated by: ANGIE SKELTON Date: 02/21/2024 09:39
--- NOTE | 2024-02-21 08:39 | PM.PN ---
Exam Constitutional Vital Signs, click to edit/add: Last Vital Signs Temp 96.8 F L 02/21/24 07:42 Pulse 61 02/21/24 08:00 Resp 16 02/21/24 07:42 BP 153/95 H 02/21/24 07:42 Pulse Ox 94 L 02/21/24 07:42 O2 Del Method Room Air 02/21/24 07:42 O2 Flow Rate 2 02/20/24 04:50 Progress Note: Objective Labs Labs: Short CBC 02/21/24 Range/Units 05:49 WBC 9.6 (4.0-11.0) 10^3/uL Hgb 15.3 (14.0-18.0) g/dL Hct 46.1 (42.0-54.0) % Plt Count 241 (150-450) 10^3/uL BMP 02/21/24 05:49 Sodium 139 Potassium 3.7 Chloride 105 Carbon Dioxide 24.3 BUN 14.0 Creatinine 0.69 L Glucose 108 H Calcium 8.7 Liver Function 02/21/24 Range/Units 05:49 Total Bilirubin 0.6 (0.2-1.0) mg/dL AST 34 (15-37) U/L ALT 49 (16-63) U/L Alkaline Phosphatase 83 (46-116) U/L Albumin 3.3 L (3.4-5.0) g/dL Progress Note: A&P Assessment and Plan (1) Community acquired pneumonia: Qualifiers: Laterality: left Lung location: lower lobe of lung Qualified Code(s): J18.9 - Pneumonia, unspecified organism (2) Multiple fractures of ribs: Qualifiers: Encounter type: initial encounter Fracture type: closed Laterality: left Qualified Code(s): S22.42XA - Multiple fractures of ribs, left side, initial encounter for closed fracture (3) Tachycardia: (4) Closed lumbar vertebral fracture: Qualifiers: Encounter type: subsequent encounter Fracture healing: with routine healing Fracture morphology: wedge compression Lumbar vertebra fracture level: unspecified lumbar vertebra Qualified Code(s): S32.000D - Wedge compression fracture of unspecified lumbar vertebra, subsequent encounter for fracture with routine healing (5) Fracture of multiple thoracic vertebrae: Qualifiers: Encounter type: subsequent encounter Fracture healing: with routine healing Fracture type: closed Qualified Code(s): S22.009D - Unspecified fracture of unspecified thoracic vertebra, subsequent encounter for fracture with routine healing (6) Cirrhosis of liver: Qualifiers: Hepatic cirrhosis type: alcoholic cirrhosis Ascites presence: without ascites Qualified Code(s): K70.30 - Alcoholic cirrhosis of liver without ascites (7) COPD (chronic obstructive pulmonary disease): Qualifiers: COPD type: unspecified COPD Qualified Code(s): J44.9 - Chronic obstructive pulmonary disease, unspecified (8) Elevated blood pressure reading with diagnosis of hypertension:
[2024-02-21] MEDS: AMLODIPINE BESYLATE 5 MG TABLET 10 MG PO (08:42)
[2024-02-21] MEDS: METOPROLOL SUCCINATE 100 MG TAB.ER.24H PO (08:43)
[2024-02-21] MEDS: DULOXETINE HCL 60 MG CAPSULE.DR PO (08:43)
[2024-02-21] MEDS: TAMSULOSIN HCL 0.4 MG CAPSULE PO (08:43)
[2024-02-21] MEDS: LIDOCAINE 5% PATCH 1 PATCH TOPICAL (08:43)
--- NOTE | 2024-02-21 11:17 | CM.NOTE ---
Rounds made with Dr. Rasheed. Potential discharge later today if BP stable and pain is controlled. Mr. Brooks in agreement.
--- NOTE | 2024-02-21 11:33 | P.DS_ITS ---
DS: Providers Provider Date of admission: 02/20/24 08:52 Primary care physician: MARIA E HAMMONDS Attending physician on admission: Sherine Rasheed Consults: 02/20/24 09:00 Occupational Therapy Eval and Treat Routine Reason for consultation: Recent fall Has provider been notified: No Physical Therapy Eval and Treat Routine Reason for consultation: Recent fall Has provider been notified: No Discharging clinician: Sherine Rasheed DS: Diagnosis Discharge Diagnosis (1) Community acquired pneumonia: Qualifiers: Laterality: left Lung location: lower lobe of lung Qualified Code(s): J18.9 - Pneumonia, unspecified organism (2) Multiple fractures of ribs: Qualifiers: Encounter type: initial encounter Fracture type: closed Laterality: left Qualified Code(s): S22.42XA - Multiple fractures of ribs, left side, initial encounter for closed fracture (3) Tachycardia: (4) Closed lumbar vertebral fracture: Qualifiers: Encounter type: subsequent encounter Fracture healing: with routine healing Fracture morphology: wedge compression Lumbar vertebra fracture level: unspecified lumbar vertebra Qualified Code(s): S32.000D - Wedge compression fracture of unspecified lumbar vertebra, subsequent encounter for fracture with routine healing (5) Fracture of multiple thoracic vertebrae: Qualifiers: Encounter type: subsequent encounter Fracture healing: with routine healing Fracture type: closed Qualified Code(s): S22.009D - Unspecified fracture of unspecified thoracic vertebra, subsequent encounter for fracture with routine healing (6) Cirrhosis of liver: Qualifiers: Hepatic cirrhosis type: alcoholic cirrhosis Ascites presence: without ascites Qualified Code(s): K70.30 - Alcoholic cirrhosis of liver without ascites (7) COPD (chronic obstructive pulmonary disease): Qualifiers: COPD type: unspecified COPD Qualified Code(s): J44.9 - Chronic obstructive pulmonary disease, unspecified (8) Elevated blood pressure reading with diagnosis of hypertension: DS: Summary Hospital Course Hospital Course: Patient is a 58 y.o white male with past medical history of cirrhosis of the liver (prior alcoholic quit 6 years ago), COPD, HTN, anxiety, who suffered a fall into a cellar about 1 week ago. He was admitted to this facility on 02/13/24 after the fall with old compression fractures of T11-L3 that were also noted on 2018 exam, and acute left 8th rib fracture. Patient was treated for pain control overnight and discharged home the next day. He has been taking muscle relaxers and diclofenac for pain. He returned to the ER with increased left sided pain, denies fevers but states cough, pain worse with cough and not able to take deep breaths. ER findings: Chest CTA: mildly displaced subacute fractures of the 10- 12 ribs on the left with patchy opacities in both lower lobes, liver cirrhosis and moderate diverticulosis. WBC 14.9, hb 15.1, Cr 0.62, AST 40, ALT 61. Trop normal. Patient was treated for Community Acquired pneumonia with Levaquin IV, duonebs as needed and OPEP. He will complete Levaquin 750mg daily x 5 days as outpatient and continue to use his OPEP. At the time of discharge, repeat Chest X-ray shows improvement, patient is saturating well on room air. Cough has improved. Patient was initially still in a great deal of pain for his rib fractures. [place] was stopped. Patient's pain control was achieved with Toradol and oral Oxycodone and topical lidocaine patch. He is to stop the muscle relaxer and diclofenac, i have sent oxycodone and lidoderm patches to the pharmacy. Liver enzymes were normal at the time of discharge. Patient also had significant elevation of BP over yesterday, I have increased metoprolol to 100mg daily and added amlodipine 10mg daily. He will have close follow up with his PCP to discuss the further needs for his BP. He may return to the ER with any worsening signs or symptoms. Patient will be discharged home with close follow up. No other changes to home medications unless listed above. Status at Discharge Functional status at discharge: independent ambulation Overall status at discharge: patient is progressing back to baseline Time Spent with Patient Time attestation: Total time spent providing and/or coordinating discharge services: Time spent: greater than 30 minutes Exam Narrative Exam Narrative: General: Patient is alert, and oriented to person, place and time with normal affect, proper hygiene Skin: large ecchymosis of the left lateral chest wall, and healing ecchymosis of the anterior right tibial region Head: atraumatic, acephalic Eyes: PERRLA, no nystagmus present, conjunctiva clear, no scleral icterus Ears: normal Tympanic Membrane, normal gross auditory acuity Nose: symmetric, no discharge, no maxillary or frontal sinus tenderness Mouth/Throat: poor dentition Heart: Normal rate and rhythm, no murmurs/rubs/gallops Lungs: audible crackles bilateral lower bases R>L Abdomen: Normal audible bowel sounds, no distension, No palpable masses, no organomegaly, no rebound/guarding/ or rigidity Musculoskeletal: no swelling bilateral lower extremities Neuro: CN II-X grossly intact Constitutional Vital Signs, click to edit/add: Last Vital Signs Temp 96.8 F L 02/21/24 07:42 Pulse 73 02/21/24 09:59 Resp 16 02/21/24 07:42 BP 153/95 H 02/21/24 07:42 Pulse Ox 93 L 02/21/24 09:59 O2 Del Method Room Air 02/21/24 07:42 O2 Flow Rate 2 02/20/24 04:50 DS: Data Data Completed and Pending Labs on day of discharge: Labs from last 24 hours 02/21/24 05:49 WBC 9.6 RBC 5.03 Hgb 15.3 Hct 46.1 MCV 91.7 MCH 30.4 MCHC 33.2 RDW 14.6 Plt Count 241 MPV 11.2 Neut % (Auto) 43.1 Lymph % (Auto) 40.1 [place] % (Auto) 12.4 H Eos % (Auto) 3.1 Baso % (Auto) 0.8 Neut # (Auto) 4.1 Lymph # (Auto) 3.9 H [place] # (Auto) 1.2 H Eos # (Auto) 0.3 Baso # (Auto) 0.1 Abs Immat Gran (auto) 0.05 H Imm/Tot Granulo (auto) 0.5 Sodium 139 Potassium 3.7 Chloride 105 Carbon Dioxide 24.3 Anion Gap 13.4 BUN 14.0 Creatinine 0.69 L Est GFR ( Amer) >60 Est GFR (Non-Af Amer) >60 BUN/Creatinine Ratio 20.3 Glucose 108 H Calcium 8.7 Total Bilirubin 0.6 AST 34 ALT 49 Alkaline Phosphatase 83 Total Protein 7.0 Albumin 3.3 L Globulin 3.7 Albumin/Globulin Ratio 0.9 Discharge Plan Discharge Disposition: Home, Self-Care Discharge Medications: New metoprolol succinate 100 mg Tablet Extended Release 24 Hr 100 mg PO QD 30 Days Qty: 30 0RF amlodipine 5 mg Tablet 10 mg PO QD 30 Days Qty: 30 0RF oxycodone-acetaminophen 5-325 mg Tablet 1 tab PO Q6H PRN (Reason: Pain) 3 Days Qty: 12 0RF Rx Instructions: S22.42XA lidocaine 5 % Adhesive Patch,Medicated 1 patch topical QD 30 Days Qty: 30 0RF levofloxacin 750 mg tablet 750 mg PO DAILY 5 Days Qty: 5 0RF Continued albuterol sulfate 90 mcg/actuation HFA aerosol inhaler 2 puff INHALATION Q6H PRN (Reason: shortness of breath or wheezing) alprazolam 1 mg tablet 1 mg PO TID PRN (Reason: anxiety) cholecalciferol (vitamin D3) 1,250 mcg (50,000 unit) capsule 1,250 mcg PO QWEEK duloxetine 60 mg capsule,delayed release(DR/EC) 60 mg PO BID sucralfate 100 mg/mL suspension 1 g PO ACHS Patient Comments: filled 02/08/24 x 14 days tamsulosin 0.4 mg capsule 0.4 mg PO QAM Discontinued metoprolol succinate 50 mg tablet extended release 24 hr 50 mg PO QAM tizanidine 4 mg capsule 8 mg PO .qhs PRN (Reason: muscle spasticity) Qty: 20 0RF diclofenac sodium 75 mg tablet,delayed release (DR/EC) 75 mg PO BID Qty: 30 0RF Activity: increase activity as tolerated Activity Detail: use your OPEP at home daily Diet: advance to your usual diet Print Language: Estonian Forms: Portal Instructions Follow Up Appointments: February 27 @ 2:40pm with Maria E Hammonds NP [phone] Discharge location: Home
--- NOTE | 2024-02-26 13:47 | CM.DCFOLLOWU ---
Person spoke with: patient How are you feeling? better How is your pain? slowly healing Did you understand your discharge instructions? yes Do you have any questions about your discharge instructions? no Were you given any prescriptions at discharge? yes Were you able to get your prescriptions filled? yes Do you understand how to take your medications as ordered? yes Do you have any questions about your follow up appointment and do you plan to keep your follow up appointment? no questions, follow up is on the . Is there anything else that you would like to discuss? no Questions/Comments/Concerns/Other: Voiced that he received very good care
== END 2024-02-21 13:03 | disposition home or self-care (01) ==
LOC: ER 18:14 → MS 20:07
PROVIDERS: Physician Assistant; Registered Nurse; Admitting Provider Family Medicine; Emergency Provider Emergency Medicine; PCP Nurse Practitioner; Visit Provider Family Medicine
DX: J18.9 Pneumonia, unspecified organism (principal); S22.42XA Multiple fractures of ribs, left side, initial encounter for closed fracture; R00.0 Tachycardia, unspecified; K70.30 Alcoholic cirrhosis of liver without ascites; J44.9 Chronic obstructive pulmonary disease, unspecified; R03.0 Elevated blood-pressure reading, without diagnosis of hypertension; F41.9 Anxiety disorder, unspecified; F10.21 Alcohol dependence, in remission; I25.10 Atherosclerotic heart disease of native coronary artery without angina pectoris; S32.000D Wedge compression fracture of unspecified lumbar vertebra, subsequent encounter for fracture with routine healing; S22.009D Unspecified fracture of unspecified thoracic vertebra, subsequent encounter for fracture with routine healing; Z87.891 Personal history of nicotine dependence; W17.89XA Other fall from one level to another, initial encounter; T14.90XD Injury, unspecified, subsequent encounter
CPT/HCPCS: 36415; 71045; 71275; 74174; 80053; 80320; 81003; 82800; 83605; 83735; 84443; 84484; 85025; 93005; 94667; 94668; 94761; 96365; 96366; 96372; 96375; 96376; 97165; 99285; G0378; J0360; J1170; J1650; J1885; J2360; J2405; J3010; Q9967